=== PATIENT | male | born 1940 | race Caucasian/White ===

== ENCOUNTER 2020-07-23 08:37 | Inpatient (IN) | payer MEDICARE, OTHER ==
[~2020-07-23] VITALS: Ht 188 cm; Wt 90.2 kg
--- NOTE | 2020-07-23 08:56 | RAD ---
EXAM: CT Head without IV contrast INDICATION: Reason: speech changes / Spl. Instructions: / History: TECHNIQUE: Multi-detector row CT images were obtained of the head without the use of IV contrast. All CT scans performed at this facility utilize dose optimization techniques as appropriate to the exam, including the following: Automated exposure control and adjustment of the mA and/or KV according to patient size (this includes techniques or standardized protocols for targeted exams where dose is ind ication/reason for exam). COMPARISON: None FINDINGS: BRAIN PARENCHYMA: No evidence of acute intraparenchymal hemorrhage or infarct. No abnormal parenchyma l density or mass. VENTRICLES & EXTRA-AXIAL SPACES: Ventricles are within normal limits. Basilar cisterns are patent. N o pathologic extra-axial fluid collection or mass. ORBITS: Orbital contents are unremarkable. SINUSES: Visualized paranasal sinuses and mastoid air cells are clear. OSSEOUS & SOFT TISSUES: Calvarium and skull base are intact. IMPRESSION: No acute intracranial pathology. FOR INTERNAL CODING PURPOSES Critical result: Findings discussed with Dr. Rom Redd at 07/23/2020 8:52 AM. RESULT CODE: (C) Electronically signed by: Erma Song MD (07/23/2020 8:53 AM) [id number]
[2020-07-23] MEDS ORDERED: IOHEXOL 350 MG/ML 100 ML VIAL. IV ONE (09:00)
[2020-07-23] MEDS ORDERED: CONTRAST GIVEN. MC PRN (09:00)
--- NOTE | 2020-07-23 09:05 | PHYS DOC ---
Past Medical History Past Medical History MIGRAINES, CAD, CHF, ARTHRITIS Past Surgical History LEFT ENDARTECTOMY, CORONARY STENTS Smoking Status: Never Smoker Alcohol Use: None Drug Use: None General Adult EDM: Chief Complaint: NEURO SYMPTOMS/DEFICITS HPI: HPI: 80-year-old male presented emerge department today with slurred speech that started this morning at 745. Last known well 7:45 AM. 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 He had 1 of these migraines this morning. He does not have headache with these migraines, just visual loss. That happened around 6:00 this morning. His vision completely improved and he was going to work today with his niece who is here with him today. He then had slurred speech with aphasia that started at 7:45 AM. He was brought into the emergency department. He was activated as a code stroke. His symptoms completely resolved just after his CT scan. He denies a headache or any other symptoms at this time. He is feeling much better with clear speech and normal motor and sensory function of his arms and legs. Review of systems is negative for abdominal pain chest pain vomiting fevers chills. All other review of systems negative. ED course: 80-year-old male presenting with speech problems and aphasia this started at 7:[address] was finished at approximately 845 the patient's symptoms had completely resolved. I spoke with the patient's niece and discussed the risks and benefits of TPA and explained to her that since the patient's symptoms have completely resolved the TPA posed more harm than benefit to this patient at this time. I consulted Dr. Chen our neurologist by phone who recommends against administration of TPA given the patient's symptoms are completely resolved. EKG shows sinus rhythm with a regular rate. ST segments are congruent. Not suggestive of acute ischemia. Head CT unremarkable. CT angiogram shows narrowing of the right carotid artery without large vessel occlusion. I relayed this information to Dr. Chen. He recommends admitting the patient to the hospital for vascular surgery consultation and TIA work-up. We will admit the patient to the hospitalist team. We will admit the patient to Dr. Redmond. Basic bridge orders placed. Heart Score: Risk Factors: Risk Factors: DM, Current or recent (<one month) smoker, HTN, HLP, family history of CAD, obesity. Risk Scores: Score 0 - 3: 2.5% MACE over next 6 weeks - Discharge Home Score 4 - 6: 20.3% MACE over next 6 weeks - Admit for Clinical Observation Score 7 - 10: 72.7% MACE over next 6 weeks - Early Invasive Strategies Current Medications: Current Medications Medications (Trade) Dose Ordered Sig/Teo Start Time Stop Time Status Last Admin Dose Admin Iohexol (Omnipaque 350 Mg/ml) 75 ml 1X ONCE 07/23/20 09:00 07/23/20 09:01 UNV Allergies: Allergies: Allergies Coded Allergies Type Severity Reaction Last Updated Verified No Known Drug Allergies 07/23/20 No Physical Exam: PE: Constitutional: Well developed, well nourished, no acute distress, non-toxic appearance. [] HENT: Normocephalic, atraumatic, bilateral external ears normal, oropharynx moist, no oral exudates, nose normal. [] Eyes: PERRLA, EOMI, conjunctiva normal, no discharge. [] Neck: Normal range of motion, no tenderness, supple, no stridor. [] Cardiovascular:Heart rate regular rhythm, no murmur [] Lungs & Thorax: Bilateral breath sounds clear to auscultation [] Abdomen: Bowel sounds normal, soft, no tenderness, no masses, no pulsatile masses. [] Skin: Warm, dry, no erythema, no rash. [] Back: No tenderness, no CVA tenderness. [] Extremities: No tenderness, no cyanosis, no clubbing, ROM intact, no edema. [] Neurologic: Mental status: Awake oriented and alert x3 Cranial nerves: Extraocular movements intact, eyebrows dario bilaterally, smile symmetric, uvula elevation nl, shoulder shrug intact bilaterally, tongue protrusion normal Clear speech. Normal [id number]. No pronator drift. Sensation: equal and normal in all extremities Strength: 5/5 in upper and lower extremities bilaterally Psychologic: Affect normal, judgement normal, mood normal. [] Current Patient Data: Labs: Laboratory Tests Test 07/23/20 08:42 Glucose (Fingerstick) 103 mg/dL (70-99) H EKG: EKG: [] Radiology/Procedures: Radiology/Procedures: [] Course & Med Decision Making: Course & Med Decision Making Pertinent Labs and Imaging studies reviewed. (See chart for details) [] Dragon Disclaimer: Dragon Disclaimer: This electronic medical record was generated, in whole or in part, using a voice recognition dictation system. Departure Departure Impression: Primary Impression: TIA (transient ischemic attack) Additional Impressions: Carotid stenosis Carotid stenosis, right Disposition: 09 ADMITTED INPT THIS HOSP Admitting Physician: RUPERT Condition: STABLE Referrals: ZEB MCGOWAN MD (PCP) NIHSS Stroke Scale NIH Stroke Scale: NIH Stroke Scale Response (Comments) Value Level of Consciousness: 0 Alert/Responsive 0 LOC Questions: 0 Answers both correctly 0 LOC Commands: 0 Performs both tasks 0 Best Gaze: 0 Normal 0 Visual: 0 No visual loss 0 Facial Palsy: 0 Normal, symmetrical 0 Motor - Left Arm 0 No drift 0 Motor - Right Arm 0 No drift 0 Motor - Left Leg 0 No drift 0 Motor: Right Leg 0 No drift 0 Limb Ataxia: 0 Absent 0 Sensory: 0 No loss 0 Best Language: 0 Normal 0 Dysathria: 0 Normal 0 Extinction and Inattention: 0 Normal (AT 845 AM) 0 Total 0 MARCELO BECK MD Jul 23, 2020 09:05
--- NOTE | 2020-07-23 09:07 | RAD ---
XR CHEST 1V History: Reason: speech changes, CODE STROKE / Spl. Instructions: / History: Comparison: None. Findings: No consolidation or pleural effusion. Normal heart size. No pneumothorax. Hyperinflation. Patchy biba silar opacities, likely atelectasis. Impression: 1. Patchy bibasilar opacities, likely atelectasis. Electronically signed by: Truman Foster DO (07/23/2020 9:05 AM) [id number]
[2020-07-23 09:21] LABS: BASO % 1 % (0-3); EOS # 0.4 x10^3/uL (0.0-0.7); EOS % 7 % (0-3); HEMOGLOBIN 15.4 g/dL (13.0-17.5); LYMPH # 1.5 x10^3/uL (1.0-4.8); LYMPH % 27 % (24-48); MEAN CORPUSCULAR HEMOGLOBIN 34 pg (25-35); MEAN CORPUSCULAR HGB CONC 34 g/dL (31-37); MEAN CORPUSCULAR VOLUME 102 fL (79-100); MONO # 0.6 x10^3/uL (0.0-1.1); MONO % 11 % (0-9); NEUT % 55 % (31-73); PLATELET COUNT 182 x10^3/uL (140-400); RED BLOOD COUNT 4.53 x10^6/uL (4.30-5.70); RED CELL DISTRIBUTION WIDTH 14.9 % (11.5-14.5); WHITE BLOOD COUNT 5.5 x10^3/uL (4.0-11.0)
--- NOTE | 2020-07-23 09:25 | RAD ---
CTA STROKE HEAD/NECK w/o History:Reason: speech changes omni 350 75ml / Spl. Instructions: / History: Technique: After bolus of intravenous contrast, volumetric CT data acquisition was acquired of the he ad and neck. Multiplanar reconstruction images to include MIP and 3-D reconstruction images are submi tted. Exposure: One or more of the following individualized dose reduction techniques were utilized for thi s examination: 1. Automated exposure control 2. Adjustment of the mA and/or kV according to patient size 3. Use of iterative reconstruction technique. Comparison: None Any determination of stenosis is based on NASCET criteria. Head CTA: ICA: Bilateral carotid siphon atheromatous plaque with mild narrowings. MCA: No stenosis, occlusion or aneurysm. JACOB: No stenosis, occlusion or aneurysm. ATOMIC WELDER: No stenosis, occlusion or aneurysm. Basilar artery: No stenosis, occlusion or aneurysm. Distal vertebral arteries: Moderate focal narrowing of the left distal intracranial vertebral artery. Patent superior sagittal, straight, transverse and sigmoid venous sinuses. CT angiogram neck: Aortic arch: Mild atheromatous plaque within the aortic arch and branch vessels. Subclavian arteries: Mild multifocal narrowing of the bilateral subclavian arteries due to atheromato us plaque. Common carotid arteries: No stenosis, occlusion or dissection. Mild atheromatous plaque. Internal carotid arteries: Postoperative changes right carotid endarterectomy. Severe calcified plaqu e within the left carotid bifurcation. 72 percent narrowing of the left proximal internal carotid art anuja. Additional 60 percent narrowing of the left internal carotid artery origin. External carotid arteries: Moderate narrowing of the left external carotid artery origin. Vertebral arteries: Mild narrowing of the left vertebral artery origin. Moderate narrowing of the rig ht vertebral artery origin. No occlusion. Right apical parenchymal scarring. Bilateral thyroid nodules largest on the right measures 9 mm. Bones: Multilevel cervical spondylosis. Multilevel neuroforaminal narrowing. No high-grade canal sten osis. Impression: 1. Severe left proximal internal carotid artery narrowings. 2. Moderate focal narrowing of the left distal intracranial vertebral artery and right proximal vert ebral artery origin. 3. Additional atheromatous plaque within the head and neck with mild narrowings, as described. FOR INTERNAL CODING PURPOSES Critical result: Findings discussed with Rom Redd at 07/23/2020 9:18 AM. RESULT CODE: (C) Electronically signed by: Truman Foster DO (07/23/2020 9:22 AM) [id number]
[2020-07-23 09:26] LABS: CALCIUM 8.2 mg/dL (8.5-10.1); CREATININE 0.9 mg/dL (0.7-1.3); GFR 80.8; POTASSIUM 4.2 mmol/L (3.5-5.1)
[2020-07-23 09:30] LABS: PROTHROMBIN TIME PATIENT 15.8 SEC (11.7-14.0)
[2020-07-23] MEDS ORDERED: ASPIRIN RECTAL 300 MG SUPP. PR PRN (10:00)
[2020-07-23] MEDS ORDERED: ACETAMINOPHEN 325 MG TABLET. PO PRN (10:00)
[2020-07-23 10:37] VITALS: BP 204/94
[2020-07-23] MEDS ORDERED: cloNIDine HCL 0.3 MG TABLET PO PRN (12:00)
[2020-07-23] MEDS ORDERED: LABETALOL 20 MG/4 ML DISP.SYRIN. IVP PRN (12:00)
--- NOTE | 2020-07-23 12:12 | PDOC2 ---
NEUROLOGY CONSULT Date of Service DOS: DATE: 07/23/20 TIME: 12:06 Reason for Consult Reason for Consult: Stroke symptoms Referring Physician Referring Physician: Dr. Ramos Source Source: Chart review, Patient History of Present Illness History of Present Illness The patient is an 80-year-old right-handed male last known normal at 7:45 AM. He had trouble thinking of words he wanted to say. He could not get his words out. In his youth he had migraines associated with scotomata, blindness, and may have had an episode of scotoma early this morning about 6 AM. He felt weak all over. In the CT scanner here in the emergency department his symptoms completely resolved. I discussed the case with Dr. Redd and we agreed that the patient was not a candidate for alteplase. On the medical floor he has been noted to have hypertension. There is no prior history of stroke, seizure, or head injury. Past Medical History Cardiovascular: HTN, Hyperlipidemia, Other (Peripheral vascular disease) CENTRAL NERVOUS SYSTEM: Migraine Psych: Anxiety Musculoskeletal: Osteoarthritis Rheumatologic: Gout Past Surgical History Past Surgical History: Other (IVC filter, left carotid endarterectomy, coronary stent, left leg artery surgery?) Family History Family History: No pertinent hx Social History Social History Retired, lives alone, no alcohol or tobacco Current Medications Current Medications Current Medications Iohexol (Omnipaque 350 Mg/ml) 75 ml 1X ONCE IV Last administered on 07/23/20at 08:57; Start 07/23/20 at 09:00; Stop 07/23/20 at 09:01; Status DC Info (CONTRAST GIVEN -- Rx MONITORING) 1 each PRN DAILY PRN MC SEE COMMENTS; Start 07/23/20 at 09:00; Stop 07/25/20 at 08:59 Acetaminophen (Tylenol) 650 mg PRN Q6HRS PRN PO TEMP > 100.3'F; Start 07/23/20 at 10:00 Aspirin (Ecotrin) 325 mg DAILYWBKFT PO ; Start 07/24/20 at 08:00 Aspirin (Aspirin Rectal Supp) 300 mg PRN DAILY PRN MS IF UNABLE TO TAKE PO; Start 07/23/20 at 10:00 Clonidine HCl (Catapres) 0.3 mg Q8HRS PO ; Start 07/23/20 at 14:00; Stop 07/23/20 at 12:00; Status DC Labetalol HCl (Normodyne Iv Push) 10 mg PRN Q10MIN PRN IVP ELEVATED BP, SEE COMMENTS; Start 07/23/20 at 12:00 Clonidine HCl (Catapres) 0.3 mg PRN Q8HRS PO ; Start 07/23/20 at 12:00; Status UNV Allergies Allergies: Coded Allergies: No Known Drug Allergies (Unverified , 07/23/20) ROS Review of System Negative for fever, chills, weight loss, shortness of breath, chest pain, indigestion, hematochezia, melena, and dysuria. Full 14-point review of systems is negative. Physical Exam Physical Examination General: Well-developed, well-nourished white male in no acute distress HEENT: Normocephalic andatraumatic. Temporal arteriespulsatile and nontender. Neck: Supple without bruit, no meningismus Musculoskeletal: Stability:see neurologic. Gait exam:see neurologic. Tone:see neurologic.Strength:see neurologic. Neurological: Mental Status:intact, orientation, memory, attention span/concentration, language, fund of knowledge normal. Cranial Nerves:Pupils equal and reactive to light, extraocular movements areintact, visual freed are full to confrontation. Facial sensation is normal. There is no facial asymmetry. Vestibulo-ocular reflex is intact. Palate elevates and tongue protrudes in midline. All other cranial related problems are negative except as mentioned before.Reflexes:2+ and symmetric with flexor plantar responses. Motor:5/5 strength with normal tone and bulk. Coordination:Finger-nose finger and actg-zo-hzdw testing are normal. Rapid alternating movements and fine finger movements are intact. Gait:Normal, including tandem. Sensory:Normal pinprick, vibration, light touch, proprioception. Vitals VITALS Vital Signs Date Time Temp Pulse Resp B/P (MAP) Pulse Ox O2 Delivery O2 Flow Rate FiO2 07/23/20 11:23 Room Air 07/23/20 10:37 97.8 70 18 204/94 (130) 93 97.8 Labs Labs Laboratory Tests Test 07/23/20 08:42 07/23/20 09:02 Glucose (Fingerstick) 103 mg/dL (70-99) White Blood Count 5.5 x10^3/uL (4.0-11.0) Red Blood Count 4.53 x10^6/uL (4.30-5.70) Hemoglobin 15.4 g/dL (13.0-17.5) Hematocrit 46.0 % (39.0-53.0) Mean Corpuscular Volume 102 fL (79-100) Mean Corpuscular Hemoglobin 34 pg (25-35) Mean Corpuscular Hemoglobin Concent 34 g/dL (31-37) Red Cell Distribution Width 14.9 % (11.5-14.5) Platelet Count 182 x10^3/uL (140-400) Neutrophils (%) (Auto) 55 % (31-73) Lymphocytes (%) (Auto) 27 % (24-48) Monocytes (%) (Auto) 11 % (0-9) Eosinophils (%) (Auto) 7 % (0-3) Basophils (%) (Auto) 1 % (0-3) Neutrophils # (Auto) 3.0 x10^3/uL (1.8-7.7) Lymphocytes # (Auto) 1.5 x10^3/uL (1.0-4.8) Monocytes # (Auto) 0.6 x10^3/uL (0.0-1.1) Eosinophils # (Auto) 0.4 x10^3/uL (0.0-0.7) Basophils # (Auto) 0.0 x10^3/uL (0.0-0.2) Prothrombin Time 15.8 SEC (11.7-14.0) Prothromb Time International Ratio 1.3 (0.8-1.1) Activated Partial Thromboplast Time 31 SEC (24-38) Sodium Level 139 mmol/L (136-145) Potassium Level 4.2 mmol/L (3.5-5.1) Chloride Level 106 mmol/L (98-107) Carbon Dioxide Level 26 mmol/L (21-32) Anion Gap 7 (6-14) Blood Urea Nitrogen 15 mg/dL (8-26) Creatinine 0.9 mg/dL (0.7-1.3) Estimated GFR (Cockcroft-Gault) 80.8 Glucose Level 93 mg/dL (70-99) Calcium Level 8.2 mg/dL (8.5-10.1) Troponin I Quantitative < 0.017 ng/mL (0.000-0.055) Laboratory Tests Test 2/24/21 08:42 07/23/20 09:02 Glucose (Fingerstick) 103 mg/dL (70-99) White Blood Count 5.5 x10^3/uL (4.0-11.0) Red Blood Count 4.53 x10^6/uL (4.30-5.70) Hemoglobin 15.4 g/dL (13.0-17.5) Hematocrit 46.0 % (39.0-53.0) Mean Corpuscular Volume 102 fL (79-100) Mean Corpuscular Hemoglobin 34 pg (25-35) Mean Corpuscular Hemoglobin Concent 34 g/dL (31-37) Red Cell Distribution Width 14.9 % (11.5-14.5) Platelet Count 182 x10^3/uL (140-400) Neutrophils (%) (Auto) 55 % (31-73) Lymphocytes (%) (Auto) 27 % (24-48) Monocytes (%) (Auto) 11 % (0-9) Eosinophils (%) (Auto) 7 % (0-3) Basophils (%) (Auto) 1 % (0-3) Neutrophils # (Auto) 3.0 x10^3/uL (1.8-7.7) Lymphocytes # (Auto) 1.5 x10^3/uL (1.0-4.8) Monocytes # (Auto) 0.6 x10^3/uL (0.0-1.1) Eosinophils # (Auto) 0.4 x10^3/uL (0.0-0.7) Basophils # (Auto) 0.0 x10^3/uL (0.0-0.2) Prothrombin Time 15.8 SEC (11.7-14.0) Prothromb Time International Ratio 1.3 (0.8-1.1) Activated Partial Thromboplast Time 31 SEC (24-38) Sodium Level 139 mmol/L (136-145) Potassium Level 4.2 mmol/L (3.5-5.1) Chloride Level 106 mmol/L (98-107) Carbon Dioxide Level 26 mmol/L (21-32) Anion Gap 7 (6-14) Blood Urea Nitrogen 15 mg/dL (8-26) Creatinine 0.9 mg/dL (0.7-1.3) Estimated GFR (Cockcroft-Gault) 80.8 Glucose Level 93 mg/dL (70-99) Calcium Level 8.2 mg/dL (8.5-10.1) Troponin I Quantitative < 0.017 ng/mL (0.000-0.055) Images Images CT Head without IV contrast INDICATION: Reason: speech changes / Spl. Instructions: / History: TECHNIQUE: Multi-detector row CT images were obtained of the head without the use of IV contrast. All CT scans performed at this facility utilize dose optimization techniques as appropriate to the exam, including the following: Automated exposure control and adjustment of the mA and/or KV according to patient size (this includes techniques or standardized protocols for targeted exams where dose is indication/reason for exam). COMPARISON: None FINDINGS: BRAIN PARENCHYMA: No evidence of acute intraparenchymal hemorrhage or infarct. No abnormal parenchymal density or mass. VENTRICLES & EXTRA-AXIAL SPACES: Ventricles are within normal limits. Basilar cisterns are patent. No pathologic extra-axial fluid collection or mass. ORBITS: Orbital contents are unremarkable. SINUSES: Visualized paranasal sinuses and mastoid air cells are clear. OSSEOUS & SOFT TISSUES: Calvarium and skull base are intact. IMPRESSION: No acute intracranial pathology. CTA STROKE HEAD/NECK w/o History:Reason: speech changes omni 350 75ml / Spl. Instructions: / History: Technique: After bolus of intravenous contrast, volumetric CT data acquisition was acquired of the head and neck. Multiplanar reconstruction images to include MIP and 3-D reconstruction images are submitted. Exposure: One or more of the following individualized dose reduction techniques were utilized for this examination: 1. Automated exposure control 2. Adjustment of the mA and/or kV according to patient size 3. Use of iterative reconstruction technique. Comparison: None Any determination of stenosis is based on NASCET criteria. Head CTA: ICA: Bilateral carotid siphon atheromatous plaque with mild narrowings. MCA: No stenosis, occlusion or aneurysm. JACOB: No stenosis, occlusion or aneurysm. IMMERSION METALCLEANER: No stenosis, occlusion or aneurysm. Basilar artery: No stenosis, occlusion or aneurysm. Distal vertebral arteries: Moderate focal narrowing of the left distal intracranial vertebral artery. Patent superior sagittal, straight, transverse and sigmoid venous sinuses. CT angiogram neck: Aortic arch: Mild atheromatous plaque within the aortic arch and branch vessels. Subclavian arteries: Mild multifocal narrowing of the bilateral subclavian arteries due to atheromatous plaque. Common carotid arteries: No stenosis, occlusion or dissection. Mild atheromatous plaque. Internal carotid arteries: Postoperative changes right carotid endarterectomy. Severe calcified plaque within the left carotid bifurcation. 72 percent narrowing of the left proximal internal carotid artery. Additional 60 percent narrowing of the left internal carotid artery origin. External carotid arteries: Moderate narrowing of the left external carotid artery origin. Vertebral arteries: Mild narrowing of the left vertebral artery origin. Moderate narrowing of the right vertebral artery origin. No occlusion. Right apical parenchymal scarring. Bilateral thyroid nodules largest on the right measures 9 mm. Bones: Multilevel cervical spondylosis. Multilevel neuroforaminal narrowing. No high-grade canal stenosis. Impression: 1. Severe left proximal internal carotid artery narrowings. 2. Moderate focal narrowing of the left distal intracranial vertebral artery and right proximal vertebral artery origin. 3. Additional atheromatous plaque within the head and neck with mild narrowings, as described. Assessment/Plan Assessment/Plan Impression: Transient ischemic attack referable to the left hemisphere, does have left carotid stenosis History of right carotid endarterectomy History of complicated migraines Hypertension, keep in mind the possibility of hypertensive encephalopathy Recommendations: Failure on 81 mg aspirin daily, switch to 325 mg daily, will consider adding clopidogrel Vascular surgery consult MRI brain Echocardiogram Rehabilitation modalities Statin depending on lipid levels levels Telemetry monitoring Thank you for letting me help with the patient's care. MUNIR CHAN MD Jul 23, 2020 12:12
--- NOTE | 2020-07-23 12:38 | HP ---
ADMIT DATE: 07/23/2020 CHIEF COMPLAINT: Neuro symptoms. HISTORY OF PRESENT ILLNESS: The patient is a pleasant 80-year-old male who has not taken his meds for a couple of months. He states he has not been able to follow up with his doctor. Today, when he presented with slurred speech and some mental status change, we noticed that his pressure is 217 systolically. He also had stroke symptoms, were concerned he could be having a stroke. I discussed the case with ER physician. We have admitted the patient. We consulted Neurology. I just spoke with Dr. Emanuel. He feels like this might be hypertensive encephalopathy. We are going to get his pressures down and see if he does better. PAST MEDICAL HISTORY: CHF, CAD, arthritis, left carotid endarterectomy, coronary stents. ALLERGIES: None. FAMILY HISTORY: Diabetes. SOCIAL HISTORY: He does not drink, smoke or take drugs. 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 MEDICATIONS: Reviewed, please refer to the MRAD. REVIEW OF SYSTEMS: GENERAL: No history of weight change, weakness or fevers. SKIN: No bruising, hair changes or rashes. EYES: No blurred, double or loss of vision. NOSE AND THROAT: No history of nosebleeds, hoarseness or sore throat. HEART: No history of palpitations, chest pain or shortness of breath on exertion. LUNGS: Denies cough, hemoptysis, wheezing or shortness of breath. GASTROINTESTINAL: Denies changes in appetite, nausea, vomiting, diarrhea or constipation. GENITOURINARY: No history of frequency, urgency, hesitancy or nocturia. NEUROLOGIC: Denies history of numbness, tingling, tremor or weakness. PSYCHIATRIC: No history of panic, anxiety or depression. ENDOCRINE: No history of heat or cold intolerance, polyuria or polydipsia. EXTREMITIES: Denies muscle weakness, joint pain, pain on walking or stiffness. PHYSICAL EXAMINATION: VITALS: Within normal limits and are stable. GENERAL: No apparent distress. Alert and oriented. HEENT: Normal cephalic atraumatic, external auditory canals are patent EYES: Extraocular muscles are intact, pupils are equally round and reactive to light and accommodation MUSCULOSKELETAL: Well developed, well nourished, good range of motion ENDOCRINE: No thyromegaly was palpated LYMPHATICS: No cervical chain or axillary nodes were noted HEMATOPOIETIC: No bruising NECK: Supple, no JVD, no thyromegaly was noted. LUNGS: Clear to auscultation in all lung freed without rhonchi or wheezing. HEART: RRR, S1, S2 present. Peripheral pulses intact, no obvious murmurs were noted. ABDOMEN: Soft, nontender. Positive bowel sounds no organomegaly, normal bowel sounds. EXTREMITIES: Without any cyanosis, clubbing, or edema. Pedal pulses intact, Homans sign is negative. NEUROLOGIC: Normal speech, normal tone. A & O x3, moves all extremities, no obvious focal deficits. PSYCHIATRIC: Normal affect, normal mood. Stable. SKIN: No ulcerations or rashes, good skin turgor, no jaundice. VASCULAR: Good capillary refill, neurovascular bundle appears to be intact. LABORATORY DATA: White count is 5. Electrolytes are normal. ASSESSMENT AND PLAN: Resolving transient ischemic attack, suspect hypertensive encephalopathy. The patient has been admitted. We are giving him IV labetalol, p.r.n. clonidine. We are going to try to get his home meds going once he gets his doses and names of his meds to us. DVT prophylaxis. Full code. Appreciate Dr. Emanuel's input. RUTH HAILE DO DR: KEITH/robel JOB#: [id number] / [id number]
--- NOTE | 2020-07-23 12:59 | EKG ---
[facility] [address] [place] [address] Test Date: 2020-07-23 Test Time: 09:02:32 Pat Name: BLUE HODGES Department: Room: Gender: M Helminthologist: : 1940 Requested By: MARCELO BECK Order Number: [id number] Reading MD: Measurements Intervals [place] Rate: 76 P: 26 NH: 174 QRS: 56 QRSD: 98 T: 51 QT: 378 QTc: 425 Interpretive Statements SINUS RHYTHM QRS(T) CONTOUR ABNORMALITY CONSIDER ANTEROLATERAL MYOCARDIAL DAMAGE POSSIBLY ABNORMAL ECG RI6.01 No previous ECG available for comparison
[2020-07-23] MEDS ORDERED: POTA20TA4 PO (13:30)
[2020-07-23] MEDS ORDERED: LOSA50TA15 PO (13:30)
[2020-07-23] MEDS ORDERED: ALLO300T PO (13:30)
[2020-07-23] MEDS ORDERED: PROP10TA PO (13:30)
[2020-07-23] MEDS ORDERED: SIMV40TA18 PO (13:30)
[2020-07-23] MEDS ORDERED: FURO40TA4 PO (13:30)
[2020-07-23] MEDS ORDERED: ASPI-886 PO (13:54)
[2020-07-23] MEDS ORDERED: CALC-31 PO (13:54)
[2020-07-23] MEDS ORDERED: cloNIDine HCL 0.3 MG TABLET PO SCH (14:00)
--- NOTE | 2020-07-23 14:01 | PDOC ---
Provider Note Date of Service: DATE: 07/23/20 TIME: 13:55 Provider Note Provider Note Vascular consult dictated by Dr. Donaldson. 80 year old male who presented with slurred speech and word finding difficulty. Noted to have critical left internal carotid artery stenosis. His symptoms have resolved and he feels he is back to baseline neurologically. He is s/p right carotid endarterectomy. Recommend left carotid endarterectomy, will plan for tomorrow afternoon. Resume daily aspirin, start daily Plavix. Hypertensive management. Statin therapy. Justicifation of Admission Dx: Justifications for Admission: Justification of Admission Dx: Yes ADA CARR APRN Jul 23, 2020 14:00
--- NOTE | 2020-07-23 14:01 | NUR ---
RN NOTE this RN took over care for this patient and agrees with previous RN's assessments and notes. home medications entered and verified with patient by this RN. will continue to monitor.
[2020-07-23] MEDS: CLOPIDOGREL BISULFATE 75 MG TABLET PO SCH (14:24)
[2020-07-23 15:00] VITALS: BP 169/70
--- NOTE | 2020-07-23 16:43 | RAD ---
EXAM: MRI BRAIN WO 07/23/2020 3:29 PM CLINICAL INDICATION: TIA COMPARISON: CT head same day TECHNIQUE: Multiplanar multisequence MR images of the brain without contrast FINDINGS: There is no restricted diffusion to suggest acute or recent infarct. Ventricles and sulci are mildly enlarged reflecting age-related atrophy. There is mild periventricular white matter hypoat tenuation and a few small scattered T2 hyperintense white matter lesions. No intracranial hemorrhage or extra-axial fluid collection. No abnormal susceptibility or evidence of intracranial mass. Globes and orbits are intact. Paranasal sinuses and mastoid air cells are clear. Calvarium is intact. IMPRESSION: 1. No acute intracranial abnormality. 2. Mild age-related volume loss. Electronically signed by: Shiela Perry MD (07/23/2020 4:41 PM) [id number]
--- NOTE | 2020-07-23 16:59 | CONS ---
DATE OF CONSULTATION: 07/23/2020 CHIEF COMPLAINT: Episode of difficulty speaking and being confused. HISTORY OF PRESENT ILLNESS: The patient is an 80-year-old male with a history of carotid arterial disease, who has previously undergone a right carotid endarterectomy in the remote past, presents to the hospital after an episode of slurred speech and change in his mental status. He states that this came on suddenly this morning. The symptoms have resolved. He reports prior to this morning, he was having no difficulties including no neurologic symptoms. He does state that he has run out of his blood pressure medication and he was having a difficult time getting it refilled; therefore, his blood pressure has been higher than normal. He currently feels fine, feels his speech is back to baseline. He never noticed any weakness in his arms or legs. He has been taking daily aspirin at home. REVIEW OF SYSTEMS: A 10-point review of systems was performed, which is otherwise negative besides what is mentioned in the history of present illness. PAST MEDICAL HISTORY: Includes: 1. Coronary artery disease. 2. Congestive heart failure. 3. Arthritis. 4. Carotid arterial disease. 5. Left leg deep venous thrombosis. PAST SURGICAL HISTORY: Includes: 1. Coronary artery stenting. 2. Right carotid endarterectomy. ALLERGIES: No known drug allergies. MEDICATIONS: Please see his full MAR. SOCIAL HISTORY: The patient does not smoke or drink alcohol. PHYSICAL EXAMINATION: GENERAL: The patient is awake and alert, currently in no apparent distress. He is afebrile. VITAL SIGNS: His blood pressure has been elevated anywhere from 179-204 systolic. His pulse is 70. He is 93% on room air. GENERAL: He is awake and alert and oriented x 3. NECK: His neck is supple. He does have a right neck scar from his previous endarterectomy. The left neck is clear with no scar. ABDOMEN: Soft, nondistended, and nontender. EXTREMITIES: His bilateral upper extremities are warm with palpable radial pulses. His bilateral lower extremities are warm. He does have chronic swelling and chronic stasis dermatitis skin changes in his calf and ankle and the left foot. Mild swelling in the right leg. Palpable pedal pulses. NEUROLOGIC: He is awake and alert, oriented x 3, moving all 4 extremities with normal strength, cranial nerves are grossly intact. ASSESSMENT AND PLAN: The patient is an 80-year-old male who had an episode, likely consistent with transient ischemic attack this morning with slurred speech and mental status confusion. This episode has resolved and he is back to his baseline neurologically. CT scan of the head was negative for stroke. CT angiogram of the neck showed severe stenosis of the proximal left internal carotid artery. The right carotid artery is patent with no severe stenosis. I recommend a left carotid endarterectomy to prevent future strokes. Recommend continuing daily aspirin and starting daily Plavix for his TIA type symptoms. His blood pressure is elevated and this is being treated by the medical physicians. We will schedule a left carotid endarterectomy here in the hospital. JANA MEEKS MD DR: AJIT/robel JOB#: [id number] / [id number]
[2020-07-23] MEDS: LOSARTAN POTASSIUM 50 MG TABLET. PO SCH (17:17)
[2020-07-23] MEDS: PROPRANOLOL 10 MG TABLET. PO SCH (17:17)
[2020-07-23 19:49] VITALS: BP 173/78
[2020-07-23] MEDS: SIMVASTATIN 40 MG TABLET. PO SCH (20:59)
[2020-07-23 23:04] VITALS: BP 123/59
[2020-07-24] VITALS (14 sets, daily range): BP systolic 114–194; BP diastolic 36–99
[2020-07-24 05:13] LABS: BASO % 1 % (0-3); EOS # 0.4 x10^3/uL (0.0-0.7); EOS % 9 % (0-3); HEMATOCRIT 41.3 % (39.0-53.0); HEMOGLOBIN 13.9 g/dL (13.0-17.5); LYMPH # 1.4 x10^3/uL (1.0-4.8); LYMPH % 30 % (24-48); MEAN CORPUSCULAR HEMOGLOBIN 34 pg (25-35); MEAN CORPUSCULAR HGB CONC 34 g/dL (31-37); MEAN CORPUSCULAR VOLUME 102 fL (79-100); MONO # 0.5 x10^3/uL (0.0-1.1); MONO % 11 % (0-9); NEUT # 2.3 x10^3/uL (1.8-7.7); NEUT % 50 % (31-73); PLATELET COUNT 154 x10^3/uL (140-400); RED BLOOD COUNT 4.05 x10^6/uL (4.30-5.70); WHITE BLOOD COUNT 4.6 x10^3/uL (4.0-11.0)
[2020-07-24 05:44] LABS: CALCIUM 8.2 mg/dL (8.5-10.1); GFR 71.5; POTASSIUM 3.8 mmol/L (3.5-5.1)
[2020-07-24 05:54] LABS: CHOLESTEROL/HDL RATIO 2.8
[2020-07-24] MEDS ORDERED: HYDROmorphone 2 MG/ML VIAL IVP PRN (06:00)
[2020-07-24] MEDS ORDERED: IV RINGERS,LACTATED 1000ML 1,000 ML IV SCH (06:00)
[2020-07-24] MEDS ORDERED: HEPARIN SODIUM 5,000 UNIT in IV RINGERS,LACTATED 500ML 500 ML IRR ONE (06:00)
[2020-07-24] MEDS ORDERED: MORPHINE SULFATE 2 MG/ML VIAL. IVP PRN (06:00)
[2020-07-24] MEDS ORDERED: PROCHLORPERAZINE 10 MG/2 ML VIAL. IVP PRN (06:00)
[2020-07-24] MEDS ORDERED: fentaNYL PF VIAL 100 MCG/2 ML VIAL IVP PRN ×2 (06:00)
[2020-07-24] MEDS: ASPIRIN ENTERIC COATED 325 MG TABLET.DR. PO SCH (08:00)
[2020-07-24] MEDS: CLOPIDOGREL BISULFATE 75 MG TABLET PO SCH (08:00)
[2020-07-24] MEDS ORDERED: LOSARTAN POTASSIUM 50 MG TABLET. PO SCH (09:00)
[2020-07-24] MEDS ORDERED: PROPRANOLOL 10 MG TABLET. PO SCH (09:00)
--- NOTE | 2020-07-24 09:19 | PDOC ---
PROGRESS NOTES Date of Service DATE: 07/24/20 TIME: 09:15 Assessment Problems Medical Problems: (1) Carotid stenosis Status: Acute (2) Carotid stenosis, right Status: Acute (3) TIA (transient ischemic attack) Status: Acute Transient ischemic attack referable to the left hemisphere, does have left carotid stenosis, keep in mind history of complicated migraines, hypertensive encephalopathy, stress reaction. MRI is negative for stroke Sister says that he has been having episodes of trouble speaking for at least a month, also under a large amount of stress History of right carotid endarterectomy Very favorable lipid profile Plan Aspirin increased to 325 mg daily, vascular surgery added clopidogrel Statin, does not need high-dose Agree with vascular surgery plans for endarterectomy Await echocardiogram Rehabilitation modalities Subjective No complaints Objective Vital Signs Date Time Temp Pulse Resp B/P (MAP) Pulse Ox O2 Delivery O2 Flow Rate FiO2 07/24/20 07:00 97.5 62 18 148/75 (99) 94 Room Air 97.5 Intake and Output 07/24/20 07:00 Intake Total 420 ml Balance 420 ml Intake Oral 420 ml # Voids 6 PHYSICAL EXAM Alert. Oriented to time, place and person. PERRL. EOMI. CN: no focal findings. Muscle tone: normal. Muscle strength: 5/5 DTR: 2+ Plantar reflex: Flexor Gait: not examined in bed. Sensory exam: no abnormal findings. No cerebellar signs elicited. Review of Relevant I have reviewed the following items radha (where applicable) has been applied. Labs Laboratory Tests Test 07/23/20 08:42 07/23/20 09:02 07/23/20 14:50 07/24/20 04:40 Glucose (Fingerstick) 103 mg/dL (70-99) White Blood Count 5.5 x10^3/uL (4.0-11.0) 4.6 x10^3/uL (4.0-11.0) Red Blood Count 4.53 x10^6/uL (4.30-5.70) 4.05 x10^6/uL (4.30-5.70) Hemoglobin 15.4 g/dL (13.0-17.5) 13.9 g/dL (13.0-17.5) Hematocrit 46.0 % (39.0-53.0) 41.3 % (39.0-53.0) Mean Corpuscular Volume 102 fL (79-100) 102 fL (79-100) Mean Corpuscular Hemoglobin 34 pg (25-35) 34 pg (25-35) Mean Corpuscular Hemoglobin Concent 34 g/dL (31-37) 34 g/dL (31-37) Red Cell Distribution Width 14.9 % (11.5-14.5) 15.0 % (11.5-14.5) Platelet Count 182 x10^3/uL (140-400) 154 x10^3/uL (140-400) Neutrophils (%) (Auto) 55 % (31-73) 50 % (31-73) Lymphocytes (%) (Auto) 27 % (24-48) 30 % (24-48) Monocytes (%) (Auto) 11 % (0-9) 11 % (0-9) Eosinophils (%) (Auto) 7 % (0-3) 9 % (0-3) Basophils (%) (Auto) 1 % (0-3) 1 % (0-3) Neutrophils # (Auto) 3.0 x10^3/uL (1.8-7.7) 2.3 x10^3/uL (1.8-7.7) Lymphocytes # (Auto) 1.5 x10^3/uL (1.0-4.8) 1.4 x10^3/uL (1.0-4.8) Monocytes # (Auto) 0.6 x10^3/uL (0.0-1.1) 0.5 x10^3/uL (0.0-1.1) Eosinophils # (Auto) 0.4 x10^3/uL (0.0-0.7) 0.4 x10^3/uL (0.0-0.7) Basophils # (Auto) 0.0 x10^3/uL (0.0-0.2) 0.0 x10^3/uL (0.0-0.2) Prothrombin Time 15.8 SEC (11.7-14.0) Prothromb Time International Ratio 1.3 (0.8-1.1) Activated Partial Thromboplast Time 31 SEC (24-38) Sodium Level 139 mmol/L (136-145) 139 mmol/L (136-145) Potassium Level 4.2 mmol/L (3.5-5.1) 3.8 mmol/L (3.5-5.1) Chloride Level 106 mmol/L (98-107) 106 mmol/L (98-107) Carbon Dioxide Level 26 mmol/L (21-32) 28 mmol/L (21-32) Anion Gap 7 (6-14) 5 (6-14) Blood Urea Nitrogen 15 mg/dL (8-26) 15 mg/dL (8-26) Creatinine 0.9 mg/dL (0.7-1.3) 1.0 mg/dL (0.7-1.3) Estimated GFR (Cockcroft-Gault) 80.8 71.5 Glucose Level 93 mg/dL (70-99) 95 mg/dL (70-99) Calcium Level 8.2 mg/dL (8.5-10.1) 8.2 mg/dL (8.5-10.1) Troponin I Quantitative < 0.017 ng/mL (0.000-0.055) SARS-CoV-2 Antigen (Rapid) Negative (NEGATIVE) Triglycerides Level 41 mg/dL (0-150) Cholesterol Level 94 mg/dL (0-200) LDL Cholesterol, Calculated 53 mg/dL (0-100) VLDL Cholesterol, Calculated 8 mg/dL (0-40) Non-HDL Cholesterol Calculated 61 mg/dL (0-129) HDL Cholesterol 33 mg/dL (40-60) Cholesterol/HDL Ratio 2.8 Laboratory Tests Test 07/23/20 14:50 07/24/20 04:40 SARS-CoV-2 Antigen (Rapid) Negative (NEGATIVE) White Blood Count 4.6 x10^3/uL (4.0-11.0) Red Blood Count 4.05 x10^6/uL (4.30-5.70) Hemoglobin 13.9 g/dL (13.0-17.5) Hematocrit 41.3 % (39.0-53.0) Mean Corpuscular Volume 102 fL (79-100) Mean Corpuscular Hemoglobin 34 pg (25-35) Mean Corpuscular Hemoglobin Concent 34 g/dL (31-37) Red Cell Distribution Width 15.0 % (11.5-14.5) Platelet Count 154 x10^3/uL (140-400) Neutrophils (%) (Auto) 50 % (31-73) Lymphocytes (%) (Auto) 30 % (24-48) Monocytes (%) (Auto) 11 % (0-9) Eosinophils (%) (Auto) 9 % (0-3) Basophils (%) (Auto) 1 % (0-3) Neutrophils # (Auto) 2.3 x10^3/uL (1.8-7.7) Lymphocytes # (Auto) 1.4 x10^3/uL (1.0-4.8) Monocytes # (Auto) 0.5 x10^3/uL (0.0-1.1) Eosinophils # (Auto) 0.4 x10^3/uL (0.0-0.7) Basophils # (Auto) 0.0 x10^3/uL (0.0-0.2) Sodium Level 139 mmol/L (136-145) Potassium Level 3.8 mmol/L (3.5-5.1) Chloride Level 106 mmol/L (98-107) Carbon Dioxide Level 28 mmol/L (21-32) Anion Gap 5 (6-14) Blood Urea Nitrogen 15 mg/dL (8-26) Creatinine 1.0 mg/dL (0.7-1.3) Estimated GFR (Cockcroft-Gault) 71.5 Glucose Level 95 mg/dL (70-99) Calcium Level 8.2 mg/dL (8.5-10.1) Triglycerides Level 41 mg/dL (0-150) Cholesterol Level 94 mg/dL (0-200) LDL Cholesterol, Calculated 53 mg/dL (0-100) VLDL Cholesterol, Calculated 8 mg/dL (0-40) Non-HDL Cholesterol Calculated 61 mg/dL (0-129) HDL Cholesterol 33 mg/dL (40-60) Cholesterol/HDL Ratio 2.8 Medications Current Medications Iohexol (Omnipaque 350 Mg/ml) 75 ml 1X ONCE IV Last administered on 07/23/20at 08:57; Start 07/23/20 at 09:00; Stop 07/23/20 at 09:01; Status DC Info (CONTRAST GIVEN -- Rx MONITORING) 1 each PRN DAILY PRN MC SEE COMMENTS; Start 07/23/20 at 09:00; Stop 07/25/20 at 08:59 Acetaminophen (Tylenol) 650 mg PRN Q6HRS PRN PO TEMP > 100.3'F; Start 07/23/20 at 10:00 Aspirin (Ecotrin) 325 mg DAILYWBKFT PO ; Start 07/24/20 at 08:00 Aspirin (Aspirin Rectal Supp) 300 mg PRN DAILY PRN VA IF UNABLE TO TAKE PO; Start 07/23/20 at 10:00 Clonidine HCl (Catapres) 0.3 mg Q8HRS PO ; Start 07/23/20 at 14:00; Stop 07/23/20 at 12:00; Status DC Labetalol HCl (Normodyne Iv Push) 10 mg PRN Q10MIN PRN IVP ELEVATED BP, SEE COMMENTS Last administered on 07/23/20at 12:11; Start 07/23/20 at 12:00 Clonidine HCl (Catapres) 0.3 mg PRN Q8HRS PRN PO HTN Last administered on 07/23/20at 21:00; Start 07/23/20 at 12:00 Clopidogrel Bisulfate (Plavix) 75 mg DAILYWBKFT PO Last administered on 07/23/20at 14:24; Start 07/23/20 at 14:15 Cefazolin Sodium/ Dextrose 50 ml @ 100 mls/hr 1X PREOP PRN IV PRIOR TO PROCEDURE; Start 07/24/20 at 06:00; Stop 07/24/20 at 18:00 Fentanyl Citrate (Fentanyl 2ml Vial) 25 mcg PRN Q5MIN PRN IVP MILD PAIN 1-3; Start 07/24/20 at 06:00; Stop 07/25/20 at 05:59 Fentanyl Citrate (Fentanyl 2ml Vial) 50 mcg PRN Q5MIN PRN IVP MODERATE PAIN 4- 6; Start 07/24/20 at 06:00; Stop 07/25/20 at 05:59 Morphine Sulfate (Morphine Sulfate) 1 mg PRN Q10MIN PRN IVP SEVERE PAIN 7-10; Start 07/24/20 at 06:00; Stop 07/25/20 at 05:59 Ringer's Solution 1,000 ml @ 30 mls/hr Q24H IV ; Start 07/24/20 at 06:00; Stop 07/24/20 at 17:59 Hydromorphone HCl (Dilaudid) 0.5 mg PRN Q10MIN PRN IVP SEVERE PAIN 7-10, 2nd CHOICE; Start 07/24/20 at 06:00; Stop 07/25/20 at 05:59 Prochlorperazine Edisylate (Compazine) 5 mg PACU PRN PRN IVP NAUSEA, MRX1; Start 07/24/20 at 06:00; Stop 07/25/20 at 05:59 Losartan Potassium (Cozaar) 50 mg DAILY PO ; Start 07/24/20 at 09:00; Stop 07/23/20 at 16:24; Status DC Propranolol HCl (Inderal) 10 mg DAILY PO ; Start 07/24/20 at 09:00; Stop 07/23/20 at 16:24; Status DC Simvastatin (Zocor) 40 mg QHS PO Last administered on 07/23/20at 20:59; Start 07/23/20 at 21:00 Heparin Sodium (Porcine) 5000 unit/Ringer's Solution 505 ml @ 505 mls/hr 1X ONCE IRR ; Start 07/24/20 at 06:00; Stop 07/24/20 at 06:59; Status DC Cefazolin Sodium 1 gm/Sodium Chloride 500 ml @ 500 mls/hr 1X ONCE IRR ; Start 07/24/20 at 06:00; Stop 07/24/20 at 06:59; Status DC Losartan Potassium (Cozaar) 50 mg DAILY PO Last administered on 07/23/20at 17:17; Start 07/23/20 at 16:30 Propranolol HCl (Inderal) 10 mg DAILY PO Last administered on 07/23/20at 17:17; Start 07/23/20 at 16:30 Active Scripts Active Reported Calcium 500 + D Tablet (Calcium Carbonate/Vitamin D3) 1 Each Tablet 1 Tab PO DAILY 30 Days Aspirin Ec (Aspirin) 81 Mg Tablet.dr 1 Tab PO DAILY Losartan Potassium 50 Mg Tablet 1 Tab PO DAILY Furosemide 40 Mg Tablet 1 Tab PO DAILY Allopurinol 300 Mg Tablet 1 Tab PO DAILY Klor-Con M20 (Potassium Chloride) 20 Meq Tab.er.prt 1 Tab PO DAILY Simvastatin 40 Mg Tablet 1 Tab PO QHS Propranolol Hcl 10 Mg Tablet 10 Mg PO DAILY Vitals/I & O Vital Sign - Last 24 Hours 07/23/20 07/23/20 07/23/20 07/23/20 09:27 09:42 09:57 10:37 Temp 97.8 97.8 Pulse 68 65 61 70 Resp 18 B/P (MAP) 179/86 (117) 177/90 (119) 175/81 (112) 204/94 (130) Pulse Ox 95 94 95 93 O2 Delivery Room Air Room Air Room Air Room Air 07/23/20 07/23/20 07/23/20 07/23/20 11:23 12:11 15:00 17:17 Temp 97.6 97.6 Pulse 70 64 65 Resp 18 B/P (MAP) 204/94 169/70 (103) 165/79 Pulse Ox 91 O2 Delivery Room Air Room Air 07/23/20 07/23/20 07/23/20 07/23/20 17:17 19:49 20:00 21:00 Temp 97.5 97.5 Pulse 65 56 56 Resp 20 B/P (MAP) 165/79 173/78 (109) 173/78 Pulse Ox 93 O2 Delivery Room Air Room Air 07/23/20 07/24/20 07/24/20 23:04 03:50 07:00 Temp 97.5 98.8 97.5 97.5 98.8 97.5 Pulse 63 55 62 Resp 20 24 18 B/P (MAP) 123/59 (80) 122/66 (84) 148/75 (99) Pulse Ox 94 93 94 O2 Delivery Room Air Room Air Room Air Intake and Output 07/23/20 07/23/20 07/24/20 15:00 23:00 07:00 Intake Total 180 ml 240 ml 0 ml Balance 180 ml 240 ml 0 ml Images MRI BRAIN WO 07/23/2020 3:29 PM CLINICAL INDICATION: TIA COMPARISON: CT head same day TECHNIQUE: Multiplanar multisequence MR images of the brain without contrast FINDINGS: There is no restricted diffusion to suggest acute or recent infarct. Ventricles and sulci are mildly enlarged reflecting age-related atrophy. There is mild periventricular white matter hypoattenuation and a few small scattered T2 hyperintense white matter lesions. No intracranial hemorrhage or extra-axial fluid collection. No abnormal susceptibility or evidence of intracranial mass. Globes and orbits are intact. Paranasal sinuses and mastoid air cells are clear. Calvarium is intact. IMPRESSION: 1. No acute intracranial abnormality. 2. Mild age-related volume loss. Justicifation of Admission Dx: Justifications for Admission: Justification of Admission Dx: Yes MUNIR CHAN MD Jul 24, 2020 09:19
[2020-07-24] MEDS: PROPRANOLOL 10 MG TABLET. PO SCH (09:37)
[2020-07-24] MEDS: LOSARTAN POTASSIUM 50 MG TABLET. PO SCH (09:38)
--- NOTE | 2020-07-24 10:40 | CARD ---
MR#: [id number] Date of Study: 07/24/2020 Ordering Physician: MUNIR CHAN, Referring Physician: MUNIR CHAN, Tech: Darlene Joyce TRISTAN APPROVED REPORT EXAM: Two-dimensional and M-mode echocardiogram with Doppler and color Doppler. Other Information Quality : Fair INDICATION CVA/TIA 2D DIMENSIONS RVDd2.7 (2.9-3.5cm)Left Atrium(2D)3.2 (1.6-4.0cm) IVSd0.8 (0.7-1.1cm)Aortic Root(2D)3.2 (2.0-3.7cm) LVDd5.3 (3.9-5.9cm)LVOT Diameter2.2 (1.8-2.4cm) PWd0.9 (0.7-1.1cm)LVDs4.1 (2.5-4.0cm) FS (%) 21.8 %SV57.9 ml LVEF(%)55.0 (>50%) Aortic Valve AoV Peak Phong.101.4cm/sAoV VTI24.0cm AO Peak GR.4.1mmHgLVOT Peak Phong.85.1cm/s LVOT VTI 20.09cmAO Mean GR.2mmHg LUIGI (VMAX)3.10ee2CSB (VTI)3.07cm2 Mitral Valve MV E Yvvhmtgl63.5cm/sMV DECEL [id number] MV A Bbgjbysa59.2cm/sMV YKZ81dk E/A Ratio0.8MVA (PHT)3.52cm2 TDI E/Lateral E'8.4E/Medial E'9.7 Tricuspid Valve TR P. Ypcxuzgv181pj/sRAP HLNOASOR0stRn TR Peak Gr.15naWvDFQX34smXf Pulmonary Vein S1 Seeiblgx15.2cm/sD2 Ywnptdsx84.7cm/s LEFT VENTRICLE The left ventricle is normal size. There is normal left ventricular wall thickness. The left ventricu lar systolic function is normal and the ejection fraction is within normal range. The Ejection Fracti on is 55-60%. There is normal LV segmental wall motion. Transmitral Doppler flow pattern is Grade I-a bnormal relaxation pattern. RIGHT VENTRICLE The right ventricle is normal size. The right ventricular systolic function is normal. ATRIA The left atrium size is normal. The right atrium size is normal. The interatrial septum is intact wit h no evidence for an atrial septal defect or patent foramen ovale as noted on 2-D or Doppler imaging. AORTIC VALVE The aortic valve is calcified but opens well. Doppler and Color Flow revealed no significant aortic r egurgitation. There is no significant aortic valvular stenosis. MITRAL VALVE The mitral valve is calcified but opens well. There is no evidence of mitral valve prolapse. There is no mitral valve stenosis. Doppler and Color Flow revealed no mitral valve regurgitation noted. TRICUSPID VALVE The tricuspid valve is normal in structure and function. Doppler and Color Flow revealed trace tricus pid regurgitation. The PA pressure was estimated at 41 mmHg. There is no tricuspid valve stenosis. PULMONIC VALVE The pulmonic valve is not well visualized. Doppler and Color Flow revealed no pulmonic valvular regur gitation. There is no pulmonic valvular stenosis. GREAT VESSELS The aortic root is normal in size. The ascending aorta is not well seen. The IVC is normal in size an d collapses >50% with inspiration. PERICARDIAL EFFUSION There is no evidence of significant pericardial effusion. Critical Notification Critical Value: No <Conclusion> The left ventricular systolic function is normal and the ejection fraction is within normal range. Th e Ejection Fraction is 55-60%. There is normal LV segmental wall motion. Doppler and Color Flow revealed trace tricuspid regurgitation. The PA pressure was estimated at 41 mm Hg. Signed by : Nikolas Martins, Electronically Approved : 07/24/2020 10:40:09
[2020-07-24] MEDS ORDERED: SURGICEL FIBRILLAR 1X2 EACH. ONE (11:02)
[2020-07-24] MEDS ORDERED: LIDOCAINE 1% PF 30 ML VIAL. ONE (11:02)
[2020-07-24] MEDS ORDERED: MIDAZOLAM HCL/PF 2 MG/2 ML VIAL. ONE (12:00)
[2020-07-24] MEDS ORDERED: ROPIVacaine 0.5% PF 20 ML VIAL. ONE (12:04)
[2020-07-24] MEDS ORDERED: LIDOCAINE 1% PF 2 ML VIAL. ONE (12:05)
[2020-07-24] MEDS ORDERED: GLYCOPYRROLATE 1 MG/5 ML VIAL. ONE (13:04)
[2020-07-24] MEDS ORDERED: PROTAMINE 50 MG/5 ML VIAL. IV ONE (13:39)
[2020-07-24] MEDS ORDERED: hydrALAZINE 20 MG/ML VIAL. ONE (13:46)
--- NOTE | 2020-07-24 14:14 | PDOC ---
BRIEF OPERATIVE NOTE Date: Jul 24, 2020 Pre-Op Diagnosis Symptomatic Left carotid stenosis Post-Op Diagnosis Same Procedure Performed Left carotid endarterectomy, eversion Surgeon Irving Pertty DO Extracorporeal Technician BENITO Nunez Anesthesiologist TREVIN Easley Anesthesia Type: Local, Regional Blood Loss 30mL IV Fluid See anesthesia note Specimens Obtained Discarded Findings Stoker Erector strength equal bilaterally. Complications None Operative Note See dictated op note PHILLY JACKMAN Jul 24, 2020 14:14
[2020-07-24] MEDS ORDERED: HYDROcodone/APAP 5/325MG 1 TAB TABLET PO PRN (14:30)
--- NOTE | 2020-07-24 14:37 | OP ---
DATE OF SURGERY: 07/24/2020 VASCULAR SURGERY OPERATIVE REPORT ATTENDING SURGEON: Irving Rogers DO FASHION EDITOR: BENITO Nunez DO PREOPERATIVE DIAGNOSIS: High-grade symptomatic left internal carotid stenosis. POSTOPERATIVE DIAGNOSIS: High-grade symptomatic left internal carotid stenosis. PROCEDURE: Left carotid endarterectomy with eversion technique. ANESTHESIA: Local with MAC. SPECIMENS: None. ESTIMATED BLOOD LOSS: 30 mL. COMPLICATIONS: None. PREOPERATIVE INDICATIONS: The patient is an 80-year-old male who presented with some left hemispheric symptoms of stroke and TIA that resolved completely without deficit. Fortunately, he had no MRI findings of infarct, but on CT angiogram had significantly bulky plaque within the left internal carotid artery. The patient had previous right carotid endarterectomy in the past. I met the patient on the day of procedure and all risks, benefits and alternatives of the procedure were discussed with the patient and he was agreeable to proceed. OPERATIVE PROCEDURE: The patient was brought to the operating suite and placed in supine position. After establishing appropriate sedation and a left sided cervical block per anesthesia, the patient was prepped and draped in a sterile fashion. Next, timeout procedure was performed. It was confirmed that the patient did receive appropriate perioperative antibiotics and the correct operative site was marked and draped. Following this, a left sided sternocleidomastoid incision was made, carried through skin and subcutaneous tissue. The patient had very poor neck mobility and very poor flexion of his neck, making the dissection much more challenging. I was able to dissect down through the platysma muscle until the sternocleidomastoid muscle was identified. Sternocleidomastoid muscle was identified and reflected laterally exposing the jugular vein. Several tributaries of the jugular vein were individually ligated and divided. Next, I was able to identify the common carotid artery and this was circumferentially dissected and controlled with a vessel loop. I also identified the vagus nerve and this was carefully preserved throughout its entire course. Next, careful dissection of the carotid bifurcation was performed. The patient was heparinized per weight-based protocol at this time. Next, careful dissection of the external carotid artery was performed and controlled with vessel loop. The superior thyroid artery was actually draping over our field and was in a way of our dissection and therefore, I ligated this and divided it with silk ligatures. Next, the mid to distal internal carotid artery was circumferentially dissected up to a healthy distal endpoint. The patient had a bulky calcified plaque, palpable within the carotid bulb. At this point in time, the patient was heparinized per weight-based protocol. After confirming the patient's hemodynamic status to be stable, the internal carotid artery was clamped followed by the common carotid artery followed by the external carotid artery. The patient had no changes in his neurologic status and was following all commands after clamping. Next, an 11-blade scalpel was used to create an arteriotomy and this was extended, and the internal carotid artery was transected from the carotid bifurcation. An endarterectomy plane was created using a Burnham elevator and the entire plaque was everted out of the internal carotid artery up to a healthy distal endpoint. The distal endpoint was directly visualized in my field. Next, copious amounts of heparinized saline solution were used to identify any potential loose fragments and these were all identified and removed. Next, the endarterectomy was completed within the common carotid artery and external carotid artery to my satisfaction. In similar fashion, we used heparinized saline solution to help identify any loose fragments. Once I was satisfied with the endarterectomy, then the internal carotid artery was reattached to the carotid bifurcation using a 6-0 Prolene suture and then the posterior suture line was completed first followed by the anterior suture line. Prior to completing our arteriotomy, we did backbleed and flush the vessels appropriately and then the arteriotomy was closed and flow was restored first to the external carotid artery and common carotid artery. A 4-5 heartbeats were allowed to flush any potential debris through the external system. Next, after confirming the patient's hemodynamic status to be stable, the internal carotid artery clamp was slowly released and then removed. Again, the patient had no changes in his neurologic status the entire case and was moving and following all commands. We had good hemostasis at the level of the arteriotomy. Following this, an 8-[place] drain was placed at the base of the neck and secured in place using a 3-0 nylon drain stitch. Next, the wound was irrigated with heparinized saline solution and then the patient's heparin was reversed with protamine. Manual pressure was held for hemostasis. The patient had some oozy raw tissue from being on dual antiplatelet therapy. Next, fibrillar was placed within the wound and manual pressure was held. Once I was satisfied with the hemostasis and the lap, sponge, needle and instrument count was found to be correct, then the platysma layer was closed using 3-0 Vicryl suture in a running fashion followed by 4-0 Monocryl for the skin followed by Dermabond. A sterile drain dressing was placed at the drain exit site. The patient tolerated the procedure well and was transferred to the postanesthesia care unit in stable condition. IRVING ROGERS DO DR: [id number] JOB#: [id number] / [id number]
--- NOTE | 2020-07-24 14:40 | PDOC ---
PROGRESS NOTES Date of Service: DATE: 07/24/20 TIME: 14:39 Chief Complaint Chief Complaint ASSESSMENT AND PLAN: Resolving transient ischemic attack, hypertensive encephalopathy. admitted. We are giving him IV labetalol, p.r.n. clonidine. Severe left proximal internal carotid artery narrowing admit home meds DVT prophylaxis. Full code. Appreciate Dr. Emanuel's consult. Pre-Op Diagnosis 2-25 Symptomatic Left carotid stenosis Post-Op Diagnosis Same Procedure Performed Left carotid endarterectomy, eversion Surgeon Irving rPetty, Beef Selector BENITO Nunez Anesthesiologist TREVIN Easley Anesthesia Type: Local, Regional Blood Loss 30mL History of Present Illness History of Present Illness CHIEF COMPLAINT: Neuro symptoms. HISTORY OF PRESENT ILLNESS: The patient is a pleasant 80-year-old male who has not taken his meds for a couple of months. He states he has not been able to follow up with his doctor. Today, when he presented with slurred speech and some mental status change, we noticed that his pressure is 217 systolically. He also had stroke symptoms, were concerned he could be having a stroke. I discussed the case with ER physician. We have admitted the patient. We consulted Neurology. I just spoke with Dr. Emanuel. He feels like this might be hypertensive encephalopathy. We are going to get his pressures down and see if he does better. PAST MEDICAL HISTORY: CHF, CAD, arthritis, left carotid endarterectomy, coronary stents. ALLERGIES: None. FAMILY HISTORY: Diabetes. SOCIAL HISTORY: He does not drink, smoke or take drugs. 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 MEDICATIONS: Reviewed, please refer to the MRAD. REVIEW OF SYSTEMS: GENERAL: No history of weight change, weakness or fevers. SKIN: No bruising, hair changes or rashes. EYES: No blurred, double or loss of vision. NOSE AND THROAT: No history of nosebleeds, hoarseness or sore throat. HEART: No history of palpitations, chest pain or shortness of breath on exertion. LUNGS: Denies cough, hemoptysis, wheezing or shortness of breath. GASTROINTESTINAL: Denies changes in appetite, nausea, vomiting, diarrhea or constipation. GENITOURINARY: No history of frequency, urgency, hesitancy or nocturia. NEUROLOGIC: Denies history of numbness, tingling, tremor or weakness. PSYCHIATRIC: No history of panic, anxiety or depression. ENDOCRINE: No history of heat or cold intolerance, polyuria or polydipsia. EXTREMITIES: Denies muscle weakness, joint pain, pain on walking or stiffness. Vitals Vitals Vital Signs Date Time Temp Pulse Resp B/P (MAP) Pulse Ox O2 Delivery O2 Flow Rate FiO2 07/24/20 14:11 98.2 68 14 120/60 96 Simple Mask 13 98.2 Physical Exam Physical Exam GENERAL: No apparent distress. Alert and oriented. HEENT: Normal cephalic atraumatic, external auditory canals are patent EYES: Extraocular muscles are intact, pupils are equally round and reactive to light and accommodation MUSCULOSKELETAL: Well developed, well nourished, good range of motion ENDOCRINE: No thyromegaly was palpated LYMPHATICS: No cervical chain or axillary nodes were noted HEMATOPOIETIC: No bruising NECK: Supple, no JVD, no thyromegaly was noted. LUNGS: Clear to auscultation in all lung freed without rhonchi or wheezing. HEART: RRR, S1, S2 present. Peripheral pulses intact, no obvious murmurs were noted. ABDOMEN: Soft, nontender. Positive bowel sounds no organomegaly, normal bowel sounds. EXTREMITIES: Without any cyanosis, clubbing, or edema. Pedal pulses intact, Homans sign is negative. NEUROLOGIC: Normal speech, normal tone. A & O x3, moves all extremities, no obvious focal deficits. PSYCHIATRIC: Normal affect, normal mood. Stable. SKIN: No ulcerations or rashes, good skin turgor, no jaundice. VASCULAR: Good capillary refill, neurovascular bundle appears to be intact. General: Cooperative Extremities: No cyanosis Labs LABS EXAM: MRI BRAIN WO 07/23/2020 3:29 PM CLINICAL INDICATION: TIA COMPARISON: CT head same day TECHNIQUE: Multiplanar multisequence MR images of the brain without contrast FINDINGS: There is no restricted diffusion to suggest acute or recent infarct. Ventricles and sulci are mildly enlarged reflecting age-related atrophy. There is mild periventricular white matter hypoattenuation and a few small scattered T2 hyperintense white matter lesions. No intracranial hemorrhage or extra-axial fluid collection. No abnormal susceptibility or evidence of intracranial mass. Globes and orbits are intact. Paranasal sinuses and mastoid air cells are clear. Calvarium is intact. IMPRESSION: 1. No acute intracranial abnormality. 2. Mild age-related volume loss. Electronically signed by: Shiela Perry MD (07/23/2020 4:41 PM) [id number] DICTATED and SIGNED BY: SHIELA PERRY MD DATE: 07/23/20 [id number] CTA STROKE HEAD/NECK w/o History:Reason: speech changes omni 350 75ml / Spl. Instructions: / History: Technique: After bolus of intravenous contrast, volumetric CT data acquisition was acquired of the head and neck. Multiplanar reconstruction images to include MIP and 3-D reconstruction images are submitted. Exposure: One or more of the following individualized dose reduction techniques were utilized for this examination: 1. Automated exposure control 2. Adjustment of the mA and/or kV according to patient size 3. Use of iterative reconstruction technique. Comparison: None Any determination of stenosis is based on NASCET criteria. Head CTA: ICA: Bilateral carotid siphon atheromatous plaque with mild narrowings. MCA: No stenosis, occlusion or aneurysm. JACOB: No stenosis, occlusion or aneurysm. LACROSSE COACH: No stenosis, occlusion or aneurysm. Basilar artery: No stenosis, occlusion or aneurysm. Distal vertebral arteries: Moderate focal narrowing of the left distal intracranial vertebral artery. Patent superior sagittal, straight, transverse and sigmoid venous sinuses. CT angiogram neck: Aortic arch: Mild atheromatous plaque within the aortic arch and branch vessels. Subclavian arteries: Mild multifocal narrowing of the bilateral subclavian arteries due to atheromatous plaque. Common carotid arteries: No stenosis, occlusion or dissection. Mild atheromatous plaque. Internal carotid arteries: Postoperative changes right carotid endarterectomy. Severe calcified plaque within the left carotid bifurcation. 72 percent narrowing of the left proximal internal carotid artery. Additional 60 percent narrowing of the left internal carotid artery origin. External carotid arteries: Moderate narrowing of the left external carotid artery origin. Vertebral arteries: Mild narrowing of the left vertebral artery origin. Moderate narrowing of the right vertebral artery origin. No occlusion. Right apical parenchymal scarring. Bilateral thyroid nodules largest on the right measures 9 mm. Bones: Multilevel cervical spondylosis. Multilevel neuroforaminal narrowing. No high-grade canal stenosis. Impression: 1. Severe left proximal internal carotid artery narrowings. 2. Moderate focal narrowing of the left distal intracranial vertebral artery and right proximal vertebral artery origin. 3. Additional atheromatous plaque within the head and neck with mild narrowings, as described. FOR INTERNAL CODING PURPOSES Critical result: Findings discussed with Rom Redd at 07/23/2020 9:18 AM. RESULT CODE: (C) Electronically signed by: Truman Foster DO (07/23/2020 9:22 AM) [id number] Laboratory Tests Test 07/23/20 14:50 07/24/20 04:40 SARS-CoV-2 Antigen (Rapid) Negative (NEGATIVE) White Blood Count 4.6 x10^3/uL (4.0-11.0) Red Blood Count 4.05 x10^6/uL (4.30-5.70) Hemoglobin 13.9 g/dL (13.0-17.5) Hematocrit 41.3 % (39.0-53.0) Mean Corpuscular Volume 102 fL (79-100) Mean Corpuscular Hemoglobin 34 pg (25-35) Mean Corpuscular Hemoglobin Concent 34 g/dL (31-37) Red Cell Distribution Width 15.0 % (11.5-14.5) Platelet Count 154 x10^3/uL (140-400) Neutrophils (%) (Auto) 50 % (31-73) Lymphocytes (%) (Auto) 30 % (24-48) Monocytes (%) (Auto) 11 % (0-9) Eosinophils (%) (Auto) 9 % (0-3) Basophils (%) (Auto) 1 % (0-3) Neutrophils # (Auto) 2.3 x10^3/uL (1.8-7.7) Lymphocytes # (Auto) 1.4 x10^3/uL (1.0-4.8) Monocytes # (Auto) 0.5 x10^3/uL (0.0-1.1) Eosinophils # (Auto) 0.4 x10^3/uL (0.0-0.7) Basophils # (Auto) 0.0 x10^3/uL (0.0-0.2) Sodium Level 139 mmol/L (136-145) Potassium Level 3.8 mmol/L (3.5-5.1) Chloride Level 106 mmol/L (98-107) Carbon Dioxide Level 28 mmol/L (21-32) Anion Gap 5 (6-14) Blood Urea Nitrogen 15 mg/dL (8-26) Creatinine 1.0 mg/dL (0.7-1.3) Estimated GFR (Cockcroft-Gault) 71.5 Glucose Level 95 mg/dL (70-99) Calcium Level 8.2 mg/dL (8.5-10.1) Triglycerides Level 41 mg/dL (0-150) Cholesterol Level 94 mg/dL (0-200) LDL Cholesterol, Calculated 53 mg/dL (0-100) VLDL Cholesterol, Calculated 8 mg/dL (0-40) Non-HDL Cholesterol Calculated 61 mg/dL (0-129) HDL Cholesterol 33 mg/dL (40-60) Cholesterol/HDL Ratio 2.8 Assessment and Plan Assessmemt and Plan Problems Medical Problems: (1) Carotid stenosis Status: Acute (2) Carotid stenosis, right Status: Acute (3) TIA (transient ischemic attack) Status: Acute Comment Review of Relevant I have reviewed the following items radha (where applicable) has been applied. Labs Laboratory Tests Test 07/23/20 08:42 07/23/20 09:02 07/23/20 14:50 07/24/20 04:40 Glucose (Fingerstick) 103 mg/dL (70-99) White Blood Count 5.5 x10^3/uL (4.0-11.0) 4.6 x10^3/uL (4.0-11.0) Red Blood Count 4.53 x10^6/uL (4.30-5.70) 4.05 x10^6/uL (4.30-5.70) Hemoglobin 15.4 g/dL (13.0-17.5) 13.9 g/dL (13.0-17.5) Hematocrit 46.0 % (39.0-53.0) 41.3 % (39.0-53.0) Mean Corpuscular Volume 102 fL (79-100) 102 fL (79-100) Mean Corpuscular Hemoglobin 34 pg (25-35) 34 pg (25-35) Mean Corpuscular Hemoglobin Concent 34 g/dL (31-37) 34 g/dL (31-37) Red Cell Distribution Width 14.9 % (11.5-14.5) 15.0 % (11.5-14.5) Platelet Count 182 x10^3/uL (140-400) 154 x10^3/uL (140-400) Neutrophils (%) (Auto) 55 % (31-73) 50 % (31-73) Lymphocytes (%) (Auto) 27 % (24-48) 30 % (24-48) Monocytes (%) (Auto) 11 % (0-9) 11 % (0-9) Eosinophils (%) (Auto) 7 % (0-3) 9 % (0-3) Basophils (%) (Auto) 1 % (0-3) 1 % (0-3) Neutrophils # (Auto) 3.0 x10^3/uL (1.8-7.7) 2.3 x10^3/uL (1.8-7.7) Lymphocytes # (Auto) 1.5 x10^3/uL (1.0-4.8) 1.4 x10^3/uL (1.0-4.8) Monocytes # (Auto) 0.6 x10^3/uL (0.0-1.1) 0.5 x10^3/uL (0.0-1.1) Eosinophils # (Auto) 0.4 x10^3/uL (0.0-0.7) 0.4 x10^3/uL (0.0-0.7) Basophils # (Auto) 0.0 x10^3/uL (0.0-0.2) 0.0 x10^3/uL (0.0-0.2) Prothrombin Time 15.8 SEC (11.7-14.0) Prothromb Time International Ratio 1.3 (0.8-1.1) Activated Partial Thromboplast Time 31 SEC (24-38) Sodium Level 139 mmol/L (136-145) 139 mmol/L (136-145) Potassium Level 4.2 mmol/L (3.5-5.1) 3.8 mmol/L (3.5-5.1) Chloride Level 106 mmol/L (98-107) 106 mmol/L (98-107) Carbon Dioxide Level 26 mmol/L (21-32) 28 mmol/L (21-32) Anion Gap 7 (6-14) 5 (6-14) Blood Urea Nitrogen 15 mg/dL (8-26) 15 mg/dL (8-26) Creatinine 0.9 mg/dL (0.7-1.3) 1.0 mg/dL (0.7-1.3) Estimated GFR (Cockcroft-Gault) 80.8 71.5 Glucose Level 93 mg/dL (70-99) 95 mg/dL (70-99) Calcium Level 8.2 mg/dL (8.5-10.1) 8.2 mg/dL (8.5-10.1) Troponin I Quantitative < 0.017 ng/mL (0.000-0.055) SARS-CoV-2 Antigen (Rapid) Negative (NEGATIVE) Triglycerides Level 41 mg/dL (0-150) Cholesterol Level 94 mg/dL (0-200) LDL Cholesterol, Calculated 53 mg/dL (0-100) VLDL Cholesterol, Calculated 8 mg/dL (0-40) Non-HDL Cholesterol Calculated 61 mg/dL (0-129) HDL Cholesterol 33 mg/dL (40-60) Cholesterol/HDL Ratio 2.8 Laboratory Tests Test 07/23/20 14:50 07/24/20 04:40 SARS-CoV-2 Antigen (Rapid) Negative (NEGATIVE) White Blood Count 4.6 x10^3/uL (4.0-11.0) Red Blood Count 4.05 x10^6/uL (4.30-5.70) Hemoglobin 13.9 g/dL (13.0-17.5) Hematocrit 41.3 % (39.0-53.0) Mean Corpuscular Volume 102 fL (79-100) Mean Corpuscular Hemoglobin 34 pg (25-35) Mean Corpuscular Hemoglobin Concent 34 g/dL (31-37) Red Cell Distribution Width 15.0 % (11.5-14.5) Platelet Count 154 x10^3/uL (140-400) Neutrophils (%) (Auto) 50 % (31-73) Lymphocytes (%) (Auto) 30 % (24-48) Monocytes (%) (Auto) 11 % (0-9) Eosinophils (%) (Auto) 9 % (0-3) Basophils (%) (Auto) 1 % (0-3) Neutrophils # (Auto) 2.3 x10^3/uL (1.8-7.7) Lymphocytes # (Auto) 1.4 x10^3/uL (1.0-4.8) Monocytes # (Auto) 0.5 x10^3/uL (0.0-1.1) Eosinophils # (Auto) 0.4 x10^3/uL (0.0-0.7) Basophils # (Auto) 0.0 x10^3/uL (0.0-0.2) Sodium Level 139 mmol/L (136-145) Potassium Level 3.8 mmol/L (3.5-5.1) Chloride Level 106 mmol/L (98-107) Carbon Dioxide Level 28 mmol/L (21-32) Anion Gap 5 (6-14) Blood Urea Nitrogen 15 mg/dL (8-26) Creatinine 1.0 mg/dL (0.7-1.3) Estimated GFR (Cockcroft-Gault) 71.5 Glucose Level 95 mg/dL (70-99) Calcium Level 8.2 mg/dL (8.5-10.1) Triglycerides Level 41 mg/dL (0-150) Cholesterol Level 94 mg/dL (0-200) LDL Cholesterol, Calculated 53 mg/dL (0-100) VLDL Cholesterol, Calculated 8 mg/dL (0-40) Non-HDL Cholesterol Calculated 61 mg/dL (0-129) HDL Cholesterol 33 mg/dL (40-60) Cholesterol/HDL Ratio 2.8 Medications Current Medications Iohexol (Omnipaque 350 Mg/ml) 75 ml 1X ONCE IV Last administered on 07/23/20at 08:57; Start 07/23/20 at 09:00; Stop 07/23/20 at 09:01; Status DC Info (CONTRAST GIVEN -- Rx MONITORING) 1 each PRN DAILY PRN MC SEE COMMENTS; Start 07/23/20 at 09:00; Stop 07/25/20 at 08:59 Acetaminophen (Tylenol) 650 mg PRN Q6HRS PRN PO TEMP > 100.3'F; Start 07/23/20 at 10:00 Aspirin (Ecotrin) 325 mg DAILYWBKFT PO ; Start 07/24/20 at 08:00 Aspirin (Aspirin Rectal Supp) 300 mg PRN DAILY PRN PA IF UNABLE TO TAKE PO; Start 07/23/20 at 10:00 Clonidine HCl (Catapres) 0.3 mg Q8HRS PO ; Start 07/23/20 at 14:00; Stop 07/23/20 at 12:00; Status DC Labetalol HCl (Normodyne Iv Push) 10 mg PRN Q10MIN PRN IVP ELEVATED BP, SEE COMMENTS Last administered on 07/23/20at 12:11; Start 07/23/20 at 12:00 Clonidine HCl (Catapres) 0.3 mg PRN Q8HRS PRN PO HTN Last administered on 07/23/20at 21:00; Start 07/23/20 at 12:00 Clopidogrel Bisulfate (Plavix) 75 mg DAILYWBKFT PO Last administered on 07/23/20at 14:24; Start 07/23/20 at 14:15 Cefazolin Sodium/ Dextrose 50 ml @ 100 mls/hr 1X PREOP PRN IV PRIOR TO PROCEDURE Last administered on 07/24/20at 12:21; Start 07/24/20 at 06:00; Stop 07/24/20 at 18:00 Fentanyl Citrate (Fentanyl 2ml Vial) 25 mcg PRN Q5MIN PRN IVP MILD PAIN 1-3; Start 07/24/20 at 06:00; Stop 07/25/20 at 05:59 Fentanyl Citrate (Fentanyl 2ml Vial) 50 mcg PRN Q5MIN PRN IVP MODERATE PAIN 4-6 ; Start 07/24/20 at 06:00; Stop 07/25/20 at 05:59 Morphine Sulfate (Morphine Sulfate) 1 mg PRN Q10MIN PRN IVP SEVERE PAIN 7-10; Start 07/24/20 at 06:00; Stop 07/25/20 at 05:59 Ringer's Solution 1,000 ml @ 30 mls/hr Q24H IV Last administered on 07/24/20at 11:40; Start 07/24/20 at 06:00; Stop 07/24/20 at 17:59 Hydromorphone HCl (Dilaudid) 0.5 mg PRN Q10MIN PRN IVP SEVERE PAIN 7-10, 2nd CHOICE; Start 07/24/20 at 06:00; Stop 07/25/20 at 05:59 Prochlorperazine Edisylate (Compazine) 5 mg PACU PRN PRN IVP NAUSEA, MRX1; Start 07/24/20 at 06:00; Stop 07/25/20 at 05:59 Losartan Potassium (Cozaar) 50 mg DAILY PO ; Start 07/24/20 at 09:00; Stop 07/23/20 at 16:24; Status DC Propranolol HCl (Inderal) 10 mg DAILY PO ; Start 07/24/20 at 09:00; Stop 07/23/20 at 16:24; Status DC Simvastatin (Zocor) 40 mg QHS PO Last administered on 07/23/20at 20:59; Start 07/23/20 at 21:00 Heparin Sodium (Porcine) 5000 unit/Ringer's Solution 505 ml @ 505 mls/hr 1X ONCE IRR Last administered on 07/24/20at 12:42; Start 07/24/20 at 06:00; Stop 07/24/20 at 06:59; Status DC Cefazolin Sodium 1 gm/Sodium Chloride 500 ml @ 500 mls/hr 1X ONCE IRR Last administered on 07/24/20at 12:42; Start 07/24/20 at 06:00; Stop 07/24/20 at 06:59; Status DC Losartan Potassium (Cozaar) 50 mg DAILY PO Last administered on 07/24/20at 09:38; Start 07/23/20 at 16:30 Propranolol HCl (Inderal) 10 mg DAILY PO Last administered on 07/24/20at 09:37; Start 07/23/20 at 16:30 Cellulose (Surgicel Fibrillar 1x2) 1 each STK-MED ONCE .ROUTE Last administered on 07/24/20at 13:38; Start 07/24/20 at 11:02; Stop 07/24/20 at 11:02; Status DC Lidocaine HCl (Xylocaine 1% Pf 30ml Vial) 30 ml STK-MED ONCE .ROUTE Last administered on 07/24/20at 12:42; Start 07/24/20 at 11:02; Stop 07/24/20 at 11:02; Status DC Midazolam HCl (Versed) 2 mg STK-MED ONCE .ROUTE ; Start 07/24/20 at 12:00; Stop 07/24/20 at 12:00; Status DC Ropivacaine (Naropin 0.5%) 20 ml STK-MED ONCE .ROUTE ; Start 07/24/20 at 12:04; Stop 07/24/20 at 12:04; Status DC Lidocaine HCl (Xylocaine-Mpf 1% 2ml Vial) 2 ml STK-MED ONCE .ROUTE ; Start 07/24/20 at 12:05; Stop 07/24/20 at 12:06; Status DC Glycopyrrolate (Robinul) 1 mg STK-MED ONCE .ROUTE ; Start 07/24/20 at 13:04; Stop 07/24/20 at 13:04; Status DC Protamine Sulfate (Protamine) 50 mg STK-MED ONCE IV ; Start 07/24/20 at 13:39; Stop 07/24/20 at 13:39; Status DC Hydralazine HCl (Apresoline Inj) 20 mg STK-MED ONCE .ROUTE ; Start 07/24/20 at 13:46; Stop 07/24/20 at 13:46; Status DC Cefazolin Sodium/ Dextrose 50 ml @ 100 mls/hr Q8H IV ; Start 07/24/20 at 20:30; Stop 07/25/20 at 04:59 Hydralazine HCl (Apresoline Inj) 10 mg PRN Q1HR PRN IVP ELEVATED BP, SEE COMMENTS; Start 07/24/20 at 14:30 Morphine Sulfate (Morphine Sulfate) 2 mg PRN Q2HR PRN IV PAIN; Start 07/24/20 at 14:30; Status UNV Acetaminophen/ Hydrocodone Bitart (Lortab 5/325) 1 tab PRN Q4HRS PRN PO PAIN; Start 07/24/20 at 14:30; Status UNV Active Scripts Active Reported Calcium 500 + D Tablet (Calcium Carbonate/Vitamin D3) 1 Each Tablet 1 Tab PO DAILY 30 Days Aspirin Ec (Aspirin) 81 Mg Tablet.dr 1 Tab PO DAILY Losartan Potassium 50 Mg Tablet 1 Tab PO DAILY Furosemide 40 Mg Tablet 1 Tab PO DAILY Allopurinol 300 Mg Tablet 1 Tab PO DAILY Klor-Con M20 (Potassium Chloride) 20 Meq Tab.er.prt 1 Tab PO DAILY Simvastatin 40 Mg Tablet 1 Tab PO QHS Propranolol Hcl 10 Mg Tablet 10 Mg PO DAILY Vitals/I & O Vital Sign - Last 24 Hours 07/23/20 07/23/20 07/23/20 07/23/20 15:00 17:17 17:17 19:49 Temp 97.6 97.5 97.6 97.5 Pulse 64 65 65 56 Resp 18 20 B/P (MAP) 169/70 (103) 165/79 165/79 173/78 (109) Pulse Ox 91 93 O2 Delivery Room Air Room Air 07/23/20 07/23/20 07/23/20 07/24/20 20:00 21:00 23:04 03:50 Temp 97.5 98.8 97.5 98.8 Pulse 56 63 55 Resp 20 24 B/P (MAP) 173/78 123/59 (80) 122/66 (84) Pulse Ox 94 93 O2 Delivery Room Air Room Air Room Air 07/24/20 07/24/20 07/24/20 07/24/20 07:00 08:00 09:37 09:38 Temp 97.5 97.5 Pulse 62 62 57 Resp 18 B/P (MAP) 148/75 (99) 155/67 155/67 Pulse Ox 94 O2 Delivery Room Air Room Air 07/24/20 07/24/20 07/24/20 07/24/20 11:00 11:43 14:11 14:11 Temp 98.0 97.5 98.2 98.0 97.5 98.2 Pulse 58 62 68 Resp 18 15 14 B/P (MAP) 146/99 (115) 194/85 120/60 Pulse Ox 93 95 96 O2 Delivery Room Air Room Air Mask Simple Mask O2 Flow Rate 13 13 Intake and Output0 07/23/20 07/23/20 07/24/20 15:00 23:00 07:00 Intake Total 180 ml 240 ml 0 ml Balance 180 ml 240 ml 0 ml Justicifation of Admission Dx: Justifications for Admission: Justification of Admission Dx: Yes GAIL VANG MD Jul 24, 2020 14:40
--- NOTE | 2020-07-24 14:49 | NUR ---
SS following for discharge planning. SS reviewed pt chart and discussed with pt RN. Pt is from home and is currently on room air. COVID19 negative. PT/OT recommended home independent. Pt having left carotid endarterectomy today. SS will continue to follow for discharge planning.
--- NOTE | 2020-07-24 15:33 | PDOC ---
Provider Note Date of Service: DATE: 07/24/20 TIME: 15:26 Provider Note Provider Note Vascular update Paged post operatively when pt in PACU. He is having expressive aphasia, he is frustrated by not being able to say what he wants to say. He can get words out that make sense some of the time, other times are garbled and slurred and obviously not what he is trying to say. His exam is otherwise insignificant with tongue midline, no facial droop, all four extremities active ROM intact with equal strength bilaterally, equal post office manager strength bilaterally. His systolic blood pressures have ranged from 140-160 with the arm cuff, with slight discrepancy with the art line which was reading around 170-180. [address] Pretty and got further orders for stat head CT And CTA. We also discussed with Dr. Chen who will watch for CT results as well. Pt will go to ICU for closer monitoring following CT. I discussed with sister, Kelly. 1555: CTA reviewed by myself and Dr. Pretty. Patency to Left ICA. Head CT reports No evidence of acute intracranial abnormality or significant interval change. Cont ICU monitoring, BP control, neuro checks. Justicifation of Admission Dx: Justifications for Admission: Justification of Admission Dx: Yes PHILLY JACKMAN Jul 24, 2020 15:33
--- NOTE | 2020-07-24 15:42 | RAD ---
EXAMINATION: CT HEAD/BRAIN WO (CT HEAD WITHOUT IV CONTRAST) CLINICAL HISTORY: Speech abnormality TECHNIQUE: Serial axial images without IV contrast were obtained from the vertex to the foramen magnu m. CT Dose Reduction Employed: One or more of the following individualized dose reduction techniques wer e utilized for this examination: 1. Automated exposure control 2. Adjustment of the mA and/or kV ac cording to patient size 3. Use of iterative reconstruction technique. COMPARISON: CT head and MR brain 07/23/2020 FINDINGS: Acute Change: No evidence of an acute infarct or other acute parenchymal process. Hemorrhage: No evidence of acute intracranial hemorrhage. Mass Lesion/Mass Effect: No evidence of intracranial mass or extraaxial fluid collection. No signific ant mass effect. Chronic Change: Scattered patchy foci of hypoattenuation in the supratentorial white matter, nonspeci fic but likely represents mild microvascular ischemia. Atherosclerotic calcification of the anterior and posterior circulation. Parenchyma: Mild to moderate generalized volume loss. Parenchyma otherwise within normal limits for a ge. Ventricles: Ventricular enlargement concordant with degree of parenchymal volume loss. Paranasal Sinuses and Skull Base: Visualized paranasal sinuses clear. Visualized skull base and soft tissues unremarkable. IMPRESSION: No evidence of acute intracranial abnormality or significant interval change. Electronically signed by: Simone Tong DO (07/24/2020 3:39 PM) [id number]
[2020-07-24] MEDS ORDERED: CONTRAST GIVEN. MC PRN (15:45)
[2020-07-24] MEDS ORDERED: IOHEXOL 350 MG/ML 100 ML VIAL. IV ONE (15:45)
--- NOTE | 2020-07-24 15:50 | NUR ---
Patient admit from OR post Left carotid endarterectomy. Telephone report recieved by OR nurse Miryam and floor nurse Kristi. Patient A/O x4 with some expressive aphagia. A-line zeroed and balanced with SBP > 180. Administered 10mg IV hydralazine and 2mg IV morphine which brought SBP down in the 150's. Patient stood bedside with assistance and used the urinal/600ml urine output. Sister Kelly at bedside. Will monitor.
[2020-07-24] MEDS: hydrALAZINE 20 MG/ML VIAL. IVP PRN ×2 (16:09→20:27)
[2020-07-24] MEDS: MORPHINE SULFATE 2 MG/ML VIAL. IV PRN (16:11)
--- NOTE | 2020-07-24 16:31 | RAD ---
CTA of the head and neck with contrast 07/24/2020 Clinical history: Expressive aphasia post left carotid endarterectomy. Technique: After the intravenous administration of 75 cc of Omnipaque 350, contiguous, 0.625 mm axial sections were obtained through the upper chest, neck and head. Multiplanar 3-D MIP and volume render ed 3-D reconstructed images were obtained. One or more of the following individualized dose reduction techniques were utilized for this study: 1. Automated exposure control. 2. Adjustment of the mA and/or kV according to patient size. 3. Use of iterative reconstruction technique. Findings: Comparison is made to patient's CT scan of the head performed earlier today. Additional com parison is made to patient's CTA of the head and neck dated 07/23/2020. Scattered atherosclerotic plaque formation seen involving the thoracic aortic arch and its branches. The origins of the brachiocephalic, left common carotid and left subclavian arteries from the thoraci c aortic arch are patent. The origin of the right common carotid artery and both vertebral arteries a re patent. The patient is post bilateral carotid endarterectomy. The left carotid endarterectomy has occurred si nce yesterday study. Mild to moderate atheromatous/atherosclerotic plaque formation is seen involving the carotid bifurcations and proximal internal carotid arteries. No hemodynamically significant sten osis or area of occlusion is seen. No carotid or vertebral arterial dissection is noted. The high-gra de stenosis seen on the previous examination involving the left internal carotid artery has resolved. Extensive subcutaneous emphysema is seen within soft tissues of the left neck. A surgical drain is no sondra in place. No hematoma or abnormal fluid collection is seen. The vertebral arteries are codominant. Both vertebral arteries demonstrate normal antegrade flow. No area stenosis or occlusion is seen. Intracranially, scattered atherosclerotic plaque formation is seen involving the cavernous portions o f both internal carotid arteries. No hemodynamically significant stenosis or area of occlusion is see n. The basilar artery is patent. The anterior, middle and posterior cerebral arteries and their branc hes are within normal limits. No area of stenosis or occlusion is seen. No intracranial aneurysm is n oted. The major dural venous sinuses are patent. No area of abnormal contrast enhancement is seen. An area of scarring is again seen involving the right upper lobe. The osseous structures are unchanged. Impression: The patient is post left carotid endarterectomy since the previous examination. The steno sis involving the proximal left internal carotid artery has resolved. No area of stenosis or occlusio n is seen. Stenosis calculation for CTA are based on measurement of the distal internal carotid artery diameter in accordance with the NASCET methodology. Electronically signed by: Dante Cunningham MD (07/24/2020 4:29 PM) [id number]
[2020-07-24] MEDS: SIMVASTATIN 40 MG TABLET. PO SCH (20:53)
[2020-07-25] VITALS (13 sets, daily range): BP systolic 112–166; BP diastolic 38–74
[2020-07-25] MEDS: MORPHINE SULFATE 2 MG/ML VIAL. IV PRN (02:27)
[2020-07-25] MEDS: hydrALAZINE 20 MG/ML VIAL. IVP PRN (04:30)
[2020-07-25] MEDS: CLOPIDOGREL BISULFATE 75 MG TABLET PO SCH (08:00)
[2020-07-25] MEDS: ASPIRIN ENTERIC COATED 325 MG TABLET.DR. PO SCH (08:00)
--- NOTE | 2020-07-25 08:45 | PDOC ---
PROGRESS NOTES Date of Service: DATE: 07/25/20 TIME: 08:45 Chief Complaint Chief Complaint ASSESSMENT AND PLAN: Resolving transient ischemic attack, hypertensive encephalopathy. metabolic encephalopathy admitted. We are giving him IV labetalol, p.r.n. clonidine. Severe left proximal internal carotid artery narrowing admit home meds DVT prophylaxis. Full code. Appreciate Dr. Chan's consult. Pre-Op Diagnosis 2-25 Symptomatic Left carotid stenosis Post-Op Diagnosis Same Procedure Performed Left carotid endarterectomy, eversion Surgeon Irving Pretty, Pyrometallurgical Engineer BENITO Nunez Anesthesiologist TREVIN Easley Anesthesia Type: Local, Regional Blood Loss 30mL 07-25 was less responsive earlier, D/W DR CHAN? MRI The patient is post left carotid endarterectomy since the previous examination. The stenosis involving the proximal left internal carotid artery has resolved. No area of stenosis or occlusion is seen. CTA NECK 35 MIN CC TIME History of Present Illness History of Present Illness CHIEF COMPLAINT: Neuro symptoms. HISTORY OF PRESENT ILLNESS: The patient is a pleasant 80-year-old male who has not taken his meds for a couple of months. He states he has not been able to follow up with his doctor. Today, when he presented with slurred speech and some mental status change, we noticed that his pressure is 217 systolically. He also had stroke symptoms, were concerned he could be having a stroke. I discussed the case with ER physician. We have admitted the patient. We consulted Neurology. I just spoke with Dr. Chan. He feels like this might be hypertensive encephalopathy. We are going to get his pressures down and see if he does better. PAST MEDICAL HISTORY: CHF, CAD, arthritis, left carotid endarterectomy, coronary stents. ALLERGIES: None. FAMILY HISTORY: Diabetes. SOCIAL HISTORY: He does not drink, smoke or take drugs. 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 MEDICATIONS: Reviewed, please refer to the MRAD. REVIEW OF SYSTEMS: GENERAL: No history of weight change, weakness or fevers. SKIN: No bruising, hair changes or rashes. EYES: No blurred, double or loss of vision. NOSE AND THROAT: No history of nosebleeds, hoarseness or sore throat. HEART: No history of palpitations, chest pain or shortness of breath on exertion. LUNGS: Denies cough, hemoptysis, wheezing or shortness of breath. GASTROINTESTINAL: Denies changes in appetite, nausea, vomiting, diarrhea or constipation. GENITOURINARY: No history of frequency, urgency, hesitancy or nocturia. NEUROLOGIC: Denies history of numbness, tingling, tremor or weakness. PSYCHIATRIC: No history of panic, anxiety or depression. ENDOCRINE: No history of heat or cold intolerance, polyuria or polydipsia. EXTREMITIES: Denies muscle weakness, joint pain, pain on walking or stiffness. Vitals Vitals Vital Signs Date Time Temp Pulse Resp B/P (MAP) Pulse Ox O2 Delivery O2 Flow Rate FiO2 07/25/20 07:00 102 13 132/43 (72) 96 Nasal Cannula 2.0 07/25/20 04:00 98.0 98.0 Physical Exam Physical Exam GENERAL: No apparent distress. Alert and oriented. HEENT: Normal cephalic atraumatic, external auditory canals are patent EYES: Extraocular muscles are intact, pupils are equally round and reactive to light and accommodation MUSCULOSKELETAL: Well developed, well nourished, good range of motion ENDOCRINE: No thyromegaly was palpated LYMPHATICS: No cervical chain or axillary nodes were noted HEMATOPOIETIC: No bruising NECK: Supple, no JVD, no thyromegaly was noted. LUNGS: Clear to auscultation in all lung freed without rhonchi or wheezing. HEART: RRR, S1, S2 present. Peripheral pulses intact, no obvious murmurs were noted. ABDOMEN: Soft, nontender. Positive bowel sounds no organomegaly, normal bowel sounds. EXTREMITIES: Without any cyanosis, clubbing, or edema. Pedal pulses intact, Homans sign is negative. NEUROLOGIC: Normal speech, normal tone. A & O x3, moves all extremities, no obvious focal deficits. PSYCHIATRIC: Normal affect, normal mood. Stable. SKIN: No ulcerations or rashes, good skin turgor, no jaundice. VASCULAR: Good capillary refill, neurovascular bundle appears to be intact. General: Cooperative Extremities: No cyanosis Labs LABS Signed PATIENT: BLUE OHDGES ACCOUNT: [id number] : 1940 LOCATION: [facility] ICU AGE: 80 SEX: M EXAM STATUS: ADM IN ORD. PHYSICIAN: PHILLY JACKMAN REASON: Expressive aphasia follow carotid endarterectomy PROCEDURE: CT ANGIOGRAPHY HEAD AND NECK CTA of the head and neck with contrast 07/24/2020 Clinical history: Expressive aphasia post left carotid endarterectomy. Technique: After the intravenous administration of 75 cc of Omnipaque 350, contiguous, 0.625 mm axial sections were obtained through the upper chest, neck and head. Multiplanar 3-D MIP and volume rendered 3-D reconstructed images were obtained. One or more of the following individualized dose reduction techniques were utilized for this study: 1. Automated exposure control. 2. Adjustment of the mA and/or kV according to patient size. 3. Use of iterative reconstruction technique. Findings: Comparison is made to patient's CT scan of the head performed earlier today. Additional comparison is made to patient's CTA of the head and neck dated 07/23/2020. Scattered atherosclerotic plaque formation seen involving the thoracic aortic arch and its branches. The origins of the brachiocephalic, left common carotid and left subclavian arteries from the thoracic aortic arch are patent. The origi n of the right common carotid artery and both vertebral arteries are patent. The patient is post bilateral carotid endarterectomy. The left carotid endarterectomy has occurred since yesterday study. Mild to moderate atheromatous/atherosclerotic plaque formation is seen involving the carotid bifurcations and proximal internal carotid arteries. No hemodynamically significant stenosis or area of occlusion is seen. No carotid or vertebral arterial dissection is noted. The high-grade stenosis seen on the previous examination involving the left internal carotid artery has resolved. Extensive subcutaneous emphysema is seen within soft tissues of the left neck. A surgical drain is noted in place. No hematoma or abnormal fluid collection is seen. The vertebral arteries are codominant. Both vertebral arteries demonstrate normal antegrade flow. No area stenosis or occlusion is seen. Intracranially, scattered atherosclerotic plaque formation is seen involving the cavernous portions of both internal carotid arteries. No hemodynamically significant stenosis or area of occlusion is seen. The basilar artery is patent. The anterior, middle and posterior cerebral arteries and their branches are within normal limits. No area of stenosis or occlusion is seen. No intracranial aneurysm is noted. The major dural venous sinuses are patent. No area of abnormal contrast enhancement is seen. An area of scarring is again seen involving the right upper lobe. The osseous structures are unchanged. Impression: The patient is post left carotid endarterectomy since the previous examination. The stenosis involving the proximal left internal carotid artery has resolved. No area of stenosis or occlusion is seen. Stenosis calculation for CTA are based on measurement of the distal internal ca rotid artery diameter in accordance with the NASCET methodology. Electronically signed by: Dante Cunningham MD (07/24/2020 4:29 PM) [id number] DICTATED and SIGNED BY: DANTE CUNNINGHAM MD Assessment and Plan Assessmemt and Plan Problems Medical Problems: (1) Carotid stenosis Status: Acute (2) Carotid stenosis, right Status: Acute (3) TIA (transient ischemic attack) Status: Acute Comment Review of Relevant I have reviewed the following items radha (where applicable) has been applied. Labs Laboratory Tests Test 07/23/20 09:02 07/23/20 14:50 07/24/20 04:40 White Blood Count 5.5 x10^3/uL (4.0-11.0) 4.6 x10^3/uL (4.0-11.0) Red Blood Count 4.53 x10^6/uL (4.30-5.70) 4.05 x10^6/uL (4.30-5.70) Hemoglobin 15.4 g/dL (13.0-17.5) 13.9 g/dL (13.0-17.5) Hematocrit 46.0 % (39.0-53.0) 41.3 % (39.0-53.0) Mean Corpuscular Volume 102 fL (79-100) 102 fL (79-100) Mean Corpuscular Hemoglobin 34 pg (25-35) 34 pg (25-35) Mean Corpuscular Hemoglobin Concent 34 g/dL (31-37) 34 g/dL (31-37) Red Cell Distribution Width 14.9 % (11.5-14.5) 15.0 % (11.5-14.5) Platelet Count 182 x10^3/uL (140-400) 154 x10^3/uL (140-400) Neutrophils (%) (Auto) 55 % (31-73) 50 % (31-73) Lymphocytes (%) (Auto) 27 % (24-48) 30 % (24-48) Monocytes (%) (Auto) 11 % (0-9) 11 % (0-9) Eosinophils (%) (Auto) 7 % (0-3) 9 % (0-3) Basophils (%) (Auto) 1 % (0-3) 1 % (0-3) Neutrophils # (Auto) 3.0 x10^3/uL (1.8-7.7) 2.3 x10^3/uL (1.8-7.7) Lymphocytes # (Auto) 1.5 x10^3/uL (1.0-4.8) 1.4 x10^3/uL (1.0-4.8) Monocytes # (Auto) 0.6 x10^3/uL (0.0-1.1) 0.5 x10^3/uL (0.0-1.1) Eosinophils # (Auto) 0.4 x10^3/uL (0.0-0.7) 0.4 x10^3/uL (0.0-0.7) Basophils # (Auto) 0.0 x10^3/uL (0.0-0.2) 0.0 x10^3/uL (0.0-0.2) Prothrombin Time 15.8 SEC (11.7-14.0) Prothromb Time International Ratio 1.3 (0.8-1.1) Activated Partial Thromboplast Time 31 SEC (24-38) Sodium Level 139 mmol/L (136-145) 139 mmol/L (136-145) Potassium Level 4.2 mmol/L (3.5-5.1) 3.8 mmol/L (3.5-5.1) Chloride Level 106 mmol/L (98-107) 106 mmol/L (98-107) Carbon Dioxide Level 26 mmol/L (21-32) 28 mmol/L (21-32) Anion Gap 7 (6-14) 5 (6-14) Blood Urea Nitrogen 15 mg/dL (8-26) 15 mg/dL (8-26) Creatinine 0.9 mg/dL (0.7-1.3) 1.0 mg/dL (0.7-1.3) Estimated GFR (Cockcroft-Gault) 80.8 71.5 Glucose Level 93 mg/dL (70-99) 95 mg/dL (70-99) Calcium Level 8.2 mg/dL (8.5-10.1) 8.2 mg/dL (8.5-10.1) Troponin I Quantitative < 0.017 ng/mL (0.000-0.055) Coronavirus (PCR) Not detected (Not Detected) SARS-CoV-2 Antigen (Rapid) Negative (NEGATIVE) Triglycerides Level 41 mg/dL (0-150) Cholesterol Level 94 mg/dL (0-200) LDL Cholesterol, Calculated 53 mg/dL (0-100) VLDL Cholesterol, Calculated 8 mg/dL (0-40) Non-HDL Cholesterol Calculated 61 mg/dL (0-129) HDL Cholesterol 33 mg/dL (40-60) Cholesterol/HDL Ratio 2.8 Medications Current Medications Iohexol (Omnipaque 350 Mg/ml) 75 ml 1X ONCE IV Last administered on 07/23/20at 08:57; Start 07/23/20 at 09:00; Stop 07/23/20 at 09:01; Status DC Info (CONTRAST GIVEN -- Rx MONITORING) 1 each PRN DAILY PRN MC SEE COMMENTS; Start 07/23/20 at 09:00; Stop 07/24/20 at 17:56; Status DC Acetaminophen (Tylenol) 650 mg PRN Q6HRS PRN PO TEMP > 100.3'F Last administered on 07/24/20at 20:16; Start 07/23/20 at 10:00 Aspirin (Ecotrin) 325 mg DAILYWBKFT PO ; Start 07/24/20 at 08:00 Aspirin (Aspirin Rectal Supp) 300 mg PRN DAILY PRN MS IF UNABLE TO TAKE PO; Start 07/23/20 at 10:00 Clonidine HCl (Catapres) 0.3 mg Q8HRS PO ; Start 07/23/20 at 14:00; Stop 07/23/20 at 12:00; Status DC Labetalol HCl (Normodyne Iv Push) 10 mg PRN Q10MIN PRN IVP ELEVATED BP, SEE COMMENTS Last administered on 07/23/20at 12:11; Start 07/23/20 at 12:00 Clonidine HCl (Catapres) 0.3 mg PRN Q8HRS PRN PO HTN Last administered on 07/23/20at 21:00; Start 07/23/20 at 12:00 Clopidogrel Bisulfate (Plavix) 75 mg DAILYWBKFT PO Last administered on 07/23/20at 14:24; Start 07/23/20 at 14:15 Cefazolin Sodium/ Dextrose 50 ml @ 100 mls/hr 1X PREOP PRN IV PRIOR TO PROCEDURE Last administered on 07/24/20at 12:21; Start 07/24/20 at 06:00; Stop 07/24/20 at 18:00; Status DC Fentanyl Citrate (Fentanyl 2ml Vial) 25 mcg PRN Q5MIN PRN IVP MILD PAIN 1-3; Start 07/24/20 at 06:00; Stop 07/25/20 at 05:59; Status DC Fentanyl Citrate (Fentanyl 2ml Vial) 50 mcg PRN Q5MIN PRN IVP MODERATE PAIN 4- 6; Start 07/24/20 at 06:00; Stop 07/25/20 at 05:59; Status DC Morphine Sulfate (Morphine Sulfate) 1 mg PRN Q10MIN PRN IVP SEVERE PAIN 7-10; Start 07/24/20 at 06:00; Stop 07/25/20 at 05:59; Status DC Ringer's Solution 1,000 ml @ 30 mls/hr Q24H IV Last administered on 07/24/20at 11:40; Start 07/24/20 at 06:00; Stop 07/24/20 at 17:59; Status DC Hydromorphone HCl (Dilaudid) 0.5 mg PRN Q10MIN PRN IVP SEVERE PAIN 7-10, 2nd CHOICE; Start 07/24/20 at 06:00; Stop 07/25/20 at 05:59; Status DC Prochlorperazine Edisylate (Compazine) 5 mg PACU PRN PRN IVP NAUSEA, MRX1; Start 07/24/20 at 06:00; Stop 07/25/20 at 05:59; Status DC Losartan Potassium (Cozaar) 50 mg DAILY PO ; Start 07/24/20 at 09:00; Stop 07/23/20 at 16:24; Status DC Propranolol HCl (Inderal) 10 mg DAILY PO ; Start 07/24/20 at 09:00; Stop 07/23/20 at 16:24; Status DC Simvastatin (Zocor) 40 mg QHS PO Last administered on 07/24/20at 20:53; Start 07/23/20 at 21:00 Heparin Sodium (Porcine) 5000 unit/Ringer's Solution 505 ml @ 505 mls/hr 1X ONCE IRR Last administered on 07/24/20at 12:42; Start 07/24/20 at 06:00; Stop 07/24/20 at 06:59; Status DC Cefazolin Sodium 1 gm/Sodium Chloride 500 ml @ 500 mls/hr 1X ONCE IRR Last administered on 07/24/20at 12:42; Start 07/24/20 at 06:00; Stop 07/24/20 at 06:59; Status DC Losartan Potassium (Cozaar) 50 mg DAILY PO Last administered on 07/24/20at 09:38; Start 07/23/20 at 16:30 Propranolol HCl (Inderal) 10 mg DAILY PO Last administered on 07/24/20at 09:37; Start 07/23/20 at 16:30 Cellulose (Surgicel Fibrillar 1x2) 1 each STK-MED ONCE .ROUTE Last administered on 07/24/20at 13:38; Start 07/24/20 at 11:02; Stop 07/24/20 at 11:02; Status DC Lidocaine HCl (Xylocaine 1% Pf 30ml Vial) 30 ml STK-MED ONCE .ROUTE Last administered on 07/24/20at 12:42; Start 07/24/20 at 11:02; Stop 07/24/20 at 11:02; Status DC Midazolam HCl (Versed) 2 mg STK-MED ONCE .ROUTE ; Start 07/24/20 at 12:00; Stop 07/24/20 at 12:00; Status DC Ropivacaine (Naropin 0.5%) 20 ml STK-MED ONCE .ROUTE ; Start 07/24/20 at 12:04; Stop 07/24/20 at 12:04; Status DC Lidocaine HCl (Xylocaine-Mpf 1% 2ml Vial) 2 ml STK-MED ONCE .ROUTE ; Start 07/24/20 at 12:05; Stop 07/24/20 at 12:06; Status DC Glycopyrrolate (Robinul) 1 mg STK-MED ONCE .ROUTE ; Start 07/24/20 at 13:04; Stop 07/24/20 at 13:04; Status DC Protamine Sulfate (Protamine) 50 mg STK-MED ONCE IV ; Start 07/24/20 at 13:39; Stop 07/24/20 at 13:39; Status DC Hydralazine HCl (Apresoline Inj) 20 mg STK-MED ONCE .ROUTE ; Start 07/24/20 at 13:46; Stop 07/24/20 at 13:46; Status DC Cefazolin Sodium/ Dextrose 50 ml @ 100 mls/hr Q8H IV Last administered on 07/25/20at 04:41; Start 07/24/20 at 20:30; Stop 07/25/20 at 04:59; Status DC Hydralazine HCl (Apresoline Inj) 10 mg PRN Q1HR PRN IVP ELEVATED BP, SEE COMMENTS Last administered on 07/25/20at 04:30; Start 07/24/20 at 14:30 Morphine Sulfate (Morphine Sulfate) 2 mg PRN Q2HR PRN IV PAIN Last administered on 07/25/20at 02:27; Start 07/24/20 at 14:30 Acetaminophen/ Hydrocodone Bitart (Lortab 5/325) 1 tab PRN Q4HRS PRN PO PAIN; Start 07/24/20 at 14:30; Status Cancel Iohexol (Omnipaque 350 Mg/ml) 75 ml 1X ONCE IV Last administered on 07/24/20at 15:40; Start 07/24/20 at 15:45; Stop 07/24/20 at 15:46; Status DC Info (CONTRAST GIVEN -- Rx MONITORING) 1 each PRN DAILY PRN MC SEE COMMENTS; Start 07/24/20 at 15:45; Stop 07/26/20 at 15:44 Active Scripts Active Reported Calcium 500 + D Tablet (Calcium Carbonate/Vitamin D3) 1 Each Tablet 1 Tab PO DAILY 30 Days Aspirin Ec (Aspirin) 81 Mg Tablet.dr 1 Tab PO DAILY Losartan Potassium 50 Mg Tablet 1 Tab PO DAILY Furosemide 40 Mg Tablet 1 Tab PO DAILY Allopurinol 300 Mg Tablet 1 Tab PO DAILY Klor-Con M20 (Potassium Chloride) 20 Meq Tab.er.prt 1 Tab PO DAILY Simvastatin 40 Mg Tablet 1 Tab PO QHS Propranolol Hcl 10 Mg Tablet 10 Mg PO DAILY Vitals/I & O Vital Sign - Last 24 Hours 07/24/20 07/24/20 07/24/20 07/24/20 09:37 09:38 11:00 11:43 Temp 98.0 97.5 98.0 97.5 Pulse 62 57 58 62 Resp 18 15 B/P (MAP) 155/67 155/67 146/99 (115) 194/85 Pulse Ox 93 95 O2 Delivery Room Air Room Air 07/24/20 07/24/20 07/24/20 07/24/20 14:11 14:11 14:26 14:41 Temp 98.2 98.2 Pulse 68 66 62 Resp 14 12 12 B/P (MAP) 120/60 131/61 138/64 Pulse Ox 96 95 94 O2 Delivery Mask Simple Mask Room Air Room Air O2 Flow Rate 13 13 07/24/20 07/24/20 07/24/20 07/24/20 14:50 14:56 15:06 15:37 Temp 98.1 98.1 Pulse 77 76 78 80 Resp 25 19 28 15 B/P (MAP) 160/72 147/77 134/72 175/83 182/70 174/68 Pulse Ox 92 92 95 93 O2 Delivery Room Air Room Air Room Air Room Air 07/24/20 07/24/20 07/24/20 07/24/20 16:00 16:00 16:09 16:11 Temp 97.6 97.6 Pulse 76 76 Resp 16 16 B/P (MAP) 194/66 (108) 183/63 Pulse Ox 92 92 O2 Delivery Room Air Room Air Room Air 07/24/20 07/24/20 07/24/20 07/24/20 16:15 16:30 16:45 17:00 Pulse 76 74 64 66 Resp 16 18 18 16 B/P (MAP) 186/68 (107) 166/54 (91) 146/46 (79) 150/48 (82) Pulse Ox 93 94 92 90 O2 Delivery Room Air Room Air Room Air Room Air 07/24/20 07/24/20 07/24/20 07/24/20 17:05 17:30 19:00 20:00 Temp 97.9 97.9 Pulse 70 76 76 Resp 14 16 18 15 B/P (MAP) 150/50 (83) 166/54 (91) 154/48 (83) Pulse Ox 90 88 91 93 O2 Delivery Room Air Room Air Nasal Cannula Nasal Cannula O2 Flow Rate 2.0 2.0 07/24/20 07/24/20 07/24/20 07/24/20 20:00 20:27 21:00 22:00 Pulse 90 82 78 Resp 17 13 B/P (MAP) 170/57 132/42 (72) 114/36 (62) Pulse Ox 92 92 O2 Delivery Nasal Cannula Nasal Cannula Nasal Cannula O2 Flow Rate 2.0 2.0 2.0 07/24/20 07/24/20 07/25/20 07/25/20 22:00 23:00 00:00 00:00 Temp 98.3 98.3 Pulse 78 78 76 Resp 12 12 11 B/P (MAP) 116/42 (66) 116/42 (66) 112/40 (64) Pulse Ox 93 92 95 O2 Delivery Nasal Cannula Nasal Cannula Nasal Cannula Nasal Cannula O2 Flow Rate 2.0 2.0 2.0 2.0 07/25/20 07/25/20 07/25/20 07/25/20 01:00 02:00 02:27 03:00 Pulse 98 104 92 Resp 14 20 24 14 B/P (MAP) 166/54 (91) 164/52 (89) 118/38 (64) Pulse Ox 95 95 95 93 O2 Delivery Nasal Cannula Nasal Cannula Nasal Cannula Nasal Cannula O2 Flow Rate 2.0 2.0 2.0 2.0 07/25/20 07/25/20 07/25/20 07/25/20 04:00 04:00 04:30 05:00 Temp 98.0 98.0 Pulse 82 88 78 Resp 13 14 B/P (MAP) 130/38 (68) 177/58 154/46 (82) Pulse Ox 93 95 O2 Delivery Nasal Cannula Nasal Cannula Nasal Cannula O2 Flow Rate 2.0 2.0 2.0 07/25/20 07/25/20 05:59 07:00 Pulse 85 102 Resp 10 13 B/P (MAP) 150/44 (79) 132/43 (72) Pulse Ox 93 96 O2 Delivery Nasal Cannula Nasal Cannula O2 Flow Rate 2.0 2.0 Intake and Output 07/24/20 07/24/20 07/25/20 15:00 23:00 07:00 Intake Total 950 ml 230 ml 80 ml Output Total 30 ml 1215 ml 680 ml Balance 920 ml -985 ml -600 ml Justicifation of Admission Dx: Justifications for Admission: Justification of Admission Dx: Yes GAIL VANG MD Jul 25, 2020 08:45
--- NOTE | 2020-07-25 08:53 | PDOC ---
PROGRESS NOTES Date of Service DATE: 07/25/20 TIME: 08:47 Assessment Problems Medical Problems: (1) Carotid stenosis Status: Acute (2) Carotid stenosis, right Status: Acute (3) TIA (transient ischemic attack) Status: Acute After the endarterectomy he developed aphasia again. I discussed the case with Ms. Fischer. I recommended CT angiogram. He already had a negative head CT. He was not a candidate for alteplase because of the recent surgery and the fact that this was an isolated aphasia, nor was he a candidate for clot retrieval given the clinically small size of any stroke. He is doing better today. He presented with a similar transient ischemic attack referable to the left hemisphere with ipsilateral stenosis so we did need the endarterectomy. I am still keeping in mind the possibility of complicated migraines, hypertensive encephalopathy, stress reaction, onset of frontal dementia with aphasia. History of right carotid endarterectomy Very favorable lipid profile Plan Repeat brain MRI Okay to transfer to floor Aspirin and clopidogrel Statin, does not need high-dose Speech therapy communication and swallowing Rehabilitation modalities Subjective Complains he cannot speak Objective Vital Signs Date Time Temp Pulse Resp B/P (MAP) Pulse Ox O2 Delivery O2 Flow Rate FiO2 07/25/20 07:00 102 13 132/43 (72) 96 Nasal Cannula 2.0 07/25/20 04:00 98.0 98.0 Intake and Output 07/25/20 07:00 Intake Total 1260 ml Output Total 1925 ml Balance -665 ml Intake Oral 210 ml IV Total 1050 ml Output Urine Total 1850 ml Drainage Total 45 ml Estimated Blood Loss 30 ml PHYSICAL EXAM Alert. Oriented to time, place and person. He does have some trouble with complex commands, says that he cannot get any words out but he actually speaks fluently, I detect a component of anxiety, but there may be some mild aphasia as well PERRL. EOMI. CN: no focal findings. Muscle tone: normal. Muscle strength: 5/5 DTR: 2+ Plantar reflex: Flexor Gait: not examined in bed. Sensory exam: no abnormal findings. No cerebellar signs elicited. Review of Relevant I have reviewed the following items radha (where applicable) has been applied. Labs Laboratory Tests Test 07/23/20 09:02 07/23/20 14:50 07/24/20 04:40 White Blood Count 5.5 x10^3/uL (4.0-11.0) 4.6 x10^3/uL (4.0-11.0) Red Blood Count 4.53 x10^6/uL (4.30-5.70) 4.05 x10^6/uL (4.30-5.70) Hemoglobin 15.4 g/dL (13.0-17.5) 13.9 g/dL (13.0-17.5) Hematocrit 46.0 % (39.0-53.0) 41.3 % (39.0-53.0) Mean Corpuscular Volume 102 fL (79-100) 102 fL (79-100) Mean Corpuscular Hemoglobin 34 pg (25-35) 34 pg (25-35) Mean Corpuscular Hemoglobin Concent 34 g/dL (31-37) 34 g/dL (31-37) Red Cell Distribution Width 14.9 % (11.5-14.5) 15.0 % (11.5-14.5) Platelet Count 182 x10^3/uL (140-400) 154 x10^3/uL (140-400) Neutrophils (%) (Auto) 55 % (31-73) 50 % (31-73) Lymphocytes (%) (Auto) 27 % (24-48) 30 % (24-48) Monocytes (%) (Auto) 11 % (0-9) 11 % (0-9) Eosinophils (%) (Auto) 7 % (0-3) 9 % (0-3) Basophils (%) (Auto) 1 % (0-3) 1 % (0-3) Neutrophils # (Auto) 3.0 x10^3/uL (1.8-7.7) 2.3 x10^3/uL (1.8-7.7) Lymphocytes # (Auto) 1.5 x10^3/uL (1.0-4.8) 1.4 x10^3/uL (1.0-4.8) Monocytes # (Auto) 0.6 x10^3/uL (0.0-1.1) 0.5 x10^3/uL (0.0-1.1) Eosinophils # (Auto) 0.4 x10^3/uL (0.0-0.7) 0.4 x10^3/uL (0.0-0.7) Basophils # (Auto) 0.0 x10^3/uL (0.0-0.2) 0.0 x10^3/uL (0.0-0.2) Prothrombin Time 15.8 SEC (11.7-14.0) Prothromb Time International Ratio 1.3 (0.8-1.1) Activated Partial Thromboplast Time 31 SEC (24-38) Sodium Level 139 mmol/L (136-145) 139 mmol/L (136-145) Potassium Level 4.2 mmol/L (3.5-5.1) 3.8 mmol/L (3.5-5.1) Chloride Level 106 mmol/L (98-107) 106 mmol/L (98-107) Carbon Dioxide Level 26 mmol/L (21-32) 28 mmol/L (21-32) Anion Gap 7 (6-14) 5 (6-14) Blood Urea Nitrogen 15 mg/dL (8-26) 15 mg/dL (8-26) Creatinine 0.9 mg/dL (0.7-1.3) 1.0 mg/dL (0.7-1.3) Estimated GFR (Cockcroft-Gault) 80.8 71.5 Glucose Level 93 mg/dL (70-99) 95 mg/dL (70-99) Calcium Level 8.2 mg/dL (8.5-10.1) 8.2 mg/dL (8.5-10.1) Troponin I Quantitative < 0.017 ng/mL (0.000-0.055) Coronavirus (PCR) Not detected (Not Detected) SARS-CoV-2 Antigen (Rapid) Negative (NEGATIVE) Triglycerides Level 41 mg/dL (0-150) Cholesterol Level 94 mg/dL (0-200) LDL Cholesterol, Calculated 53 mg/dL (0-100) VLDL Cholesterol, Calculated 8 mg/dL (0-40) Non-HDL Cholesterol Calculated 61 mg/dL (0-129) HDL Cholesterol 33 mg/dL (40-60) Cholesterol/HDL Ratio 2.8 Medications Current Medications Iohexol (Omnipaque 350 Mg/ml) 75 ml 1X ONCE IV Last administered on 07/23/20at 08:57; Start 07/23/20 at 09:00; Stop 07/23/20 at 09:01; Status DC Info (CONTRAST GIVEN -- Rx MONITORING) 1 each PRN DAILY PRN MC SEE COMMENTS; Start 07/23/20 at 09:00; Stop 07/24/20 at 17:56; Status DC Acetaminophen (Tylenol) 650 mg PRN Q6HRS PRN PO TEMP > 100.3'F Last administered on 07/24/20at 20:16; Start 07/23/20 at 10:00 Aspirin (Ecotrin) 325 mg DAILYWBKFT PO ; Start 07/24/20 at 08:00 Aspirin (Aspirin Rectal Supp) 300 mg PRN DAILY PRN [place] IF UNABLE TO TAKE PO; Start 07/23/20 at 10:00 Clonidine HCl (Catapres) 0.3 mg Q8HRS PO ; Start 07/23/20 at 14:00; Stop 07/23/20 at 12:00; Status DC Labetalol HCl (Normodyne Iv Push) 10 mg PRN Q10MIN PRN IVP ELEVATED BP, SEE COMMENTS Last administered on 07/23/20at 12:11; Start 07/23/20 at 12:00 Clonidine HCl (Catapres) 0.3 mg PRN Q8HRS PRN PO HTN Last administered on 07/23/20at 21:00; Start 07/23/20 at 12:00 Clopidogrel Bisulfate (Plavix) 75 mg DAILYWBKFT PO Last administered on 07/23/20at 14:24; Start 07/23/20 at 14:15 Cefazolin Sodium/ Dextrose 50 ml @ 100 mls/hr 1X PREOP PRN IV PRIOR TO PROCEDURE Last administered on 07/24/20at 12:21; Start 07/24/20 at 06:00; Stop 07/24/20 at 18:00; Status DC Fentanyl Citrate (Fentanyl 2ml Vial) 25 mcg PRN Q5MIN PRN IVP MILD PAIN 1-3; Start 07/24/20 at 06:00; Stop 07/25/20 at 05:59; Status DC Fentanyl Citrate (Fentanyl 2ml Vial) 50 mcg PRN Q5MIN PRN IVP MODERATE PAIN 4- 6; Start 07/24/20 at 06:00; Stop 07/25/20 at 05:59; Status DC Morphine Sulfate (Morphine Sulfate) 1 mg PRN Q10MIN PRN IVP SEVERE PAIN 7-10; Start 07/24/20 at 06:00; Stop 07/25/20 at 05:59; Status DC Ringer's Solution 1,000 ml @ 30 mls/hr Q24H IV Last administered on 07/24/20at 11:40; Start 07/24/20 at 06:00; Stop 07/24/20 at 17:59; Status DC Hydromorphone HCl (Dilaudid) 0.5 mg PRN Q10MIN PRN IVP SEVERE PAIN 7-10, 2nd CHOICE; Start 07/24/20 at 06:00; Stop 07/25/20 at 05:59; Status DC Prochlorperazine Edisylate (Compazine) 5 mg PACU PRN PRN IVP NAUSEA, MRX1; Start 07/24/20 at 06:00; Stop 07/25/20 at 05:59; Status DC Losartan Potassium (Cozaar) 50 mg DAILY PO ; Start 07/24/20 at 09:00; Stop 07/23/20 at 16:24; Status DC Propranolol HCl (Inderal) 10 mg DAILY PO ; Start 07/24/20 at 09:00; Stop 07/23/20 at 16:24; Status DC Simvastatin (Zocor) 40 mg QHS PO Last administered on 07/24/20at 20:53; Start 07/23/20 at 21:00 Heparin Sodium (Porcine) 5000 unit/Ringer's Solution 505 ml @ 505 mls/hr 1X ONCE IRR Last administered on 07/24/20at 12:42; Start 07/24/20 at 06:00; Stop 07/24/20 at 06:59; Status DC Cefazolin Sodium 1 gm/Sodium Chloride 500 ml @ 500 mls/hr 1X ONCE IRR Last administered on 07/24/20at 12:42; Start 07/24/20 at 06:00; Stop 07/24/20 at 06:59; Status DC Losartan Potassium (Cozaar) 50 mg DAILY PO Last administered on 07/24/20at 09:38; Start 07/23/20 at 16:30 Propranolol HCl (Inderal) 10 mg DAILY PO Last administered on 07/24/20at 09:37; Start 07/23/20 at 16:30 Cellulose (Surgicel Fibrillar 1x2) 1 each STK-MED ONCE .ROUTE Last administered on 07/24/20at 13:38; Start 07/24/20 at 11:02; Stop 07/24/20 at 11:02; Status DC Lidocaine HCl (Xylocaine 1% Pf 30ml Vial) 30 ml STK-MED ONCE .ROUTE Last administered on 07/24/20at 12:42; Start 07/24/20 at 11:02; Stop 07/24/20 at 11:02; Status DC Midazolam HCl (Versed) 2 mg STK-MED ONCE .ROUTE ; Start 07/24/20 at 12:00; Stop 07/24/20 at 12:00; Status DC Ropivacaine (Naropin 0.5%) 20 ml STK-MED ONCE .ROUTE ; Start 07/24/20 at 12:04; Stop 07/24/20 at 12:04; Status DC Lidocaine HCl (Xylocaine-Mpf 1% 2ml Vial) 2 ml STK-MED ONCE .ROUTE ; Start 07/24/20 at 12:05; Stop 07/24/20 at 12:06; Status DC Glycopyrrolate (Robinul) 1 mg STK-MED ONCE .ROUTE ; Start 07/24/20 at 13:04; Stop 07/24/20 at 13:04; Status DC Protamine Sulfate (Protamine) 50 mg STK-MED ONCE IV ; Start 07/24/20 at 13:39; Stop 07/24/20 at 13:39; Status DC Hydralazine HCl (Apresoline Inj) 20 mg STK-MED ONCE .ROUTE ; Start 07/24/20 at 13:46; Stop 07/24/20 at 13:46; Status DC Cefazolin Sodium/ Dextrose 50 ml @ 100 mls/hr Q8H IV Last administered on 07/25/20at 04:41; Start 07/24/20 at 20:30; Stop 07/25/20 at 04:59; Status DC Hydralazine HCl (Apresoline Inj) 10 mg PRN Q1HR PRN IVP ELEVATED BP, SEE COMMENTS Last administered on 07/25/20at 04:30; Start 07/24/20 at 14:30 Morphine Sulfate (Morphine Sulfate) 2 mg PRN Q2HR PRN IV PAIN Last administered on 07/25/20at 02:27; Start 07/24/20 at 14:30 Acetaminophen/ Hydrocodone Bitart (Lortab 5/325) 1 tab PRN Q4HRS PRN PO PAIN; Start 07/24/20 at 14:30; Status Cancel Iohexol (Omnipaque 350 Mg/ml) 75 ml 1X ONCE IV Last administered on 07/24/20at 15:40; Start 07/24/20 at 15:45; Stop 07/24/20 at 15:46; Status DC Info (CONTRAST GIVEN -- Rx MONITORING) 1 each PRN DAILY PRN MC SEE COMMENTS; Start 07/24/20 at 15:45; Stop 07/26/20 at 15:44 Active Scripts Active Reported Calcium 500 + D Tablet (Calcium Carbonate/Vitamin D3) 1 Each Tablet 1 Tab PO DAILY 30 Days Aspirin Ec (Aspirin) 81 Mg Tablet.dr 1 Tab PO DAILY Losartan Potassium 50 Mg Tablet 1 Tab PO DAILY Furosemide 40 Mg Tablet 1 Tab PO DAILY Allopurinol 300 Mg Tablet 1 Tab PO DAILY Klor-Con M20 (Potassium Chloride) 20 Meq Tab.er.prt 1 Tab PO DAILY Simvastatin 40 Mg Tablet 1 Tab PO QHS Propranolol Hcl 10 Mg Tablet 10 Mg PO DAILY Vitals/I & O Vital Sign - Last 24 Hours 07/24/20 07/24/20 07/24/20 07/24/20 09:37 09:38 11:00 11:43 Temp 98.0 97.5 98.0 97.5 Pulse 62 57 58 62 Resp 18 15 B/P (MAP) 155/67 155/67 146/99 (115) 194/85 Pulse Ox 93 95 O2 Delivery Room Air Room Air 07/24/20 07/24/20 07/24/20 07/24/20 14:11 14:11 14:26 14:41 Temp 98.2 98.2 Pulse 68 66 62 Resp 14 12 12 B/P (MAP) 120/60 131/61 138/64 Pulse Ox 96 95 94 O2 Delivery Mask Simple Mask Room Air Room Air O2 Flow Rate 13 13 07/24/20 07/24/20 07/24/20 07/24/20 14:50 14:56 15:06 15:37 Temp 98.1 98.1 Pulse 77 76 78 80 Resp 28 15 B/P (MAP) 160/72 147/77 134/72 175/83 182/70 174/68 Pulse Ox 92 92 95 93 O2 Delivery Room Air Room Air Room Air Room Air 07/24/20 07/24/20 07/24/20 07/24/20 16:00 16:00 16:09 16:11 Temp 97.6 97.6 Pulse 76 76 Resp 16 16 B/P (MAP) 194/66 (108) 183/63 Pulse Ox 92 92 O2 Delivery Room Air Room Air Room Air 07/24/20 07/24/20 07/24/20 07/24/20 16:15 16:30 16:45 17:00 Pulse 76 74 64 66 Resp 16 18 18 16 B/P (MAP) 186/68 (107) 166/54 (91) 146/46 (79) 150/48 (82) Pulse Ox 93 94 92 90 O2 Delivery Room Air Room Air Room Air Room Air 07/24/20 07/24/20 07/24/20 07/24/20 17:05 17:30 19:00 20:00 Temp 97.9 97.9 Pulse 70 76 76 Resp 14 16 18 15 B/P (MAP) 150/50 (83) 166/54 (91) 154/48 (83) Pulse Ox 90 88 91 93 O2 Delivery Room Air Room Air Nasal Cannula Nasal Cannula O2 Flow Rate 2.0 2.0 07/24/20 07/24/20 07/24/20 07/24/20 20:00 20:27 21:00 22:00 Pulse 90 82 78 Resp 17 13 B/P (MAP) 170/57 132/42 (72) 114/36 (62) Pulse Ox 92 92 O2 Delivery Nasal Cannula Nasal Cannula Nasal Cannula O2 Flow Rate 2.0 2.0 2.0 07/24/20 07/24/20 07/25/20 07/25/20 22:00 23:00 00:00 00:00 Temp 98.3 98.3 Pulse 78 78 76 Resp 12 12 11 B/P (MAP) 116/42 (66) 116/42 (66) 112/40 (64) Pulse Ox 93 92 95 O2 Delivery Nasal Cannula Nasal Cannula Nasal Cannula Nasal Cannula O2 Flow Rate 2.0 2.0 2.0 2.0 07/25/20 07/25/20 07/25/20 07/25/20 01:00 02:00 02:27 03:00 Pulse 98 104 92 Resp 14 20 24 14 B/P (MAP) 166/54 (91) 164/52 (89) 118/38 (64) Pulse Ox 95 95 95 93 O2 Delivery Nasal Cannula Nasal Cannula Nasal Cannula Nasal Cannula O2 Flow Rate 2.0 2.0 2.0 2.0 07/25/20 07/25/20 07/25/20 07/25/20 04:00 04:00 04:30 05:00 Temp 98.0 98.0 Pulse 82 88 78 Resp 13 14 B/P (MAP) 130/38 (68) 177/58 154/46 (82) Pulse Ox 93 95 O2 Delivery Nasal Cannula Nasal Cannula Nasal Cannula O2 Flow Rate 2.0 2.0 2.0 07/25/20 07/25/20 05:59 07:00 Pulse 85 102 Resp 10 13 B/P (MAP) 150/44 (79) 132/43 (72) Pulse Ox 93 96 O2 Delivery Nasal Cannula Nasal Cannula O2 Flow Rate 2.0 2.0 Intake and Output 07/24/20 07/24/20 07/25/20 15:00 23:00 07:00 Intake Total 950 ml 230 ml 80 ml Output Total 30 ml 1215 ml 680 ml Balance 920 ml -985 ml -600 ml Images CTA of the head and neck with contrast 07/24/2020 Clinical history: Expressive aphasia post left carotid endarterectomy. Technique: After the intravenous administration of 75 cc of Omnipaque 350, contiguous, 0.625 mm axial sections were obtained through the upper chest, neck and head. Multiplanar 3-D MIP and volume rendered 3-D reconstructed images were obtained. One or more of the following individualized dose reduction techniques were utilized for this study: 1. Automated exposure control. 2. Adjustment of the mA and/or kV according to patient size. 3. Use of iterative reconstruction technique. Findings: Comparison is made to patient's CT scan of the head performed earlier today. Additional comparison is made to patient's CTA of the head and neck dated 07/23/2020. Scattered atherosclerotic plaque formation seen involving the thoracic aortic arch and its branches. The origins of the brachiocephalic, left common carotid and left subclavian arteries from the thoracic aortic arch are patent. The origin of the right common carotid artery and both vertebral arteries are pa tent. The patient is post bilateral carotid endarterectomy. The left carotid endarterectomy has occurred since yesterday study. Mild to moderate atheromatous/atherosclerotic plaque formation is seen involving the carotid bifurcations and proximal internal carotid arteries. No hemodynamically significant stenosis or area of occlusion is seen. No carotid or vertebral arterial dissection is noted. The high-grade stenosis seen on the previous examination involving the left internal carotid artery has resolved. Extensive subcutaneous emphysema is seen within soft tissues of the left neck. A surgical drain is noted in place. No hematoma or abnormal fluid collection is seen. The vertebral arteries are codominant. Both vertebral arteries demonstrate normal antegrade flow. No area stenosis or occlusion is seen. Intracranially, scattered atherosclerotic plaque formation is seen involving the cavernous portions of both internal carotid arteries. No hemodynamically significant stenosis or area of occlusion is seen. The basilar artery is patent. The anterior, middle and posterior cerebral arteries and their branches are within normal limits. No area of stenosis or occlusion is seen. No intracranial aneurysm is noted. The major dural venous sinuses are patent. No area of abnormal contrast enhancement is seen. An area of scarring is again seen involving the right upper lobe. The osseous structures are unchanged. Impression: The patient is post left carotid endarterectomy since the previous examination. The stenosis involving the proximal left internal carotid artery has resolved. No area of stenosis or occlusion is seen. CT HEAD/BRAIN WO (CT HEAD WITHOUT IV CONTRAST), 07/24 Acute Change: No evidence of an acute infarct or other acute parenchymal process. Hemorrhage: No evidence of acute intracranial hemorrhage. Mass Lesion/Mass Effect: No evidence of intracranial mass or extraaxial fluid collection. No significant mass effect. Chronic Change: Scattered patchy foci of hypoattenuation in the supratentorial white matter, nonspecific but likely represents mild microvascular ischemia. Atherosclerotic calcification of the anterior and posterior circulation. Parenchyma: Mild to moderate generalized volume loss. Parenchyma otherwise within normal limits for age. Ventricles: Ventricular enlargement concordant with degree of parenchymal volume loss. Paranasal Sinuses and Skull Base: Visualized paranasal sinuses clear. Visualized skull base and soft tissues unremarkable. IMPRESSION: No evidence of acute intracranial abnormality or significant interval change. Echocardiogram: LEFT VENTRICLE The left ventricle is normal size. There is normal left ventricular wall thickness. The left ventricular systolic function is normal and the ejection fraction is within normal range. The Ejection Fraction is 55-60%. There is normal LV segmental wall motion. Transmitral Doppler flow pattern is Grade I-abnormal relaxation pattern. RIGHT VENTRICLE The right ventricle is normal size. The right ventricular systolic function is normal. ATRIA The left atrium size is normal. The right atrium size is normal. The interatrial septum is intact with no evidence for an atrial septal defect or patent foramen ovale as noted on 2-D or Doppler imaging. AORTIC VALVE The aortic valve is calcified but opens well. Doppler and Color Flow revealed no significant aortic regurgitation. There is no significant aortic valvular st enosis. MITRAL VALVE The mitral valve is calcified but opens well. There is no evidence of mitral valve prolapse. There is no mitral valve stenosis. Doppler and Color Flow revealed no mitral valve regurgitation noted. TRICUSPID VALVE The tricuspid valve is normal in structure and function. Doppler and Color Flow revealed trace tricuspid regurgitation. The PA pressure was estimated at 41 mmHg. There is no tricuspid valve stenosis. PULMONIC VALVE The pulmonic valve is not well visualized. Doppler and Color Flow revealed no pulmonic valvular regurgitation. There is no pulmonic valvular stenosis. GREAT VESSELS The aortic root is normal in size. The ascending aorta is not well seen. The IVC is normal in size and collapses >50% with inspiration. PERICARDIAL EFFUSION There is no evidence of significant pericardial effusion. Critical Notification Critical Value: No <Conclusion> The left ventricular systolic function is normal and the ejection fraction is within normal range. The Ejection Fraction is 55-60%. There is normal LV segmental wall motion. Doppler and Color Flow revealed trace tricuspid regurgitation. The PA pressure was estimated at 41 mmHg. Justicifation of Admission Dx: Justifications for Admission: Justification of Admission Dx: Yes MUNIR CHAN MD Jul 25, 2020 08:53
[2020-07-25] MEDS: PROPRANOLOL 10 MG TABLET. PO SCH (09:00)
[2020-07-25] MEDS: LOSARTAN POTASSIUM 50 MG TABLET. PO SCH (09:00)
--- NOTE | 2020-07-25 16:07 | NUR ---
SS following up with discharge planning. SS reviewed pt chart and discussed with pt RN. Pt is currently requiring oxygen at two liters nasal canula. COVID19 negative. PT/OT recommended home independent. Pt NPO. ST following. SS will continue to follow for discharge planning.
--- NOTE | 2020-07-25 17:12 | PDOC ---
PROGRESS NOTES Date of Service DATE: 07/25/20 TIME: 17:08 Subjective Subjective Pt seen this afternoon -- he was about to enter MRI machine for today's study. RN reported to me patient had another episode of expressive aphasia and difficulty understanding commands this morning, then it resolved. On my exam he seems to converse with me normally, he follows all commands well neck supple no hematoma BIANKA minimal output face symmetric tongue midline, speech clear but some difficulty with word choice follows all commands well strong milieu coordinator bilaterally moves feet easily I reviewed post-op CTA neck -- don't really see anything I would repeat surgery for. Will ask Dr Pretty to review again await results of MRI -- continue DAPT and statin OK to remove BIANKA Objective Objective Vital Signs Date Time Temp Pulse Resp B/P (MAP) Pulse Ox O2 Delivery O2 Flow Rate FiO2 07/25/20 10:00 98.3 92 16 141/47 (78) 94 Nasal Cannula 3.0 98.3 Intake and Output 07/25/20 07:00 Intake Total 1260 ml Output Total 1925 ml Balance -665 ml Intake Oral 210 ml IV Total 1050 ml Output Urine Total 1850 ml Drainage Total 45 ml Estimated Blood Loss 30 ml Assessment Assessment Problems Medical Problems: (1) Carotid stenosis Status: Acute (2) Carotid stenosis, right Status: Acute (3) TIA (transient ischemic attack) Status: Acute Comment Review of Relevant I have reviewed the following items radha (where applicable) has been applied. Labs Laboratory Tests Test 07/24/20 04:40 White Blood Count 4.6 x10^3/uL (4.0-11.0) Red Blood Count 4.05 x10^6/uL (4.30-5.70) Hemoglobin 13.9 g/dL (13.0-17.5) Hematocrit 41.3 % (39.0-53.0) Mean Corpuscular Volume 102 fL (79-100) Mean Corpuscular Hemoglobin 34 pg (25-35) Mean Corpuscular Hemoglobin Concent 34 g/dL (31-37) Red Cell Distribution Width 15.0 % (11.5-14.5) Platelet Count 154 x10^3/uL (140-400) Neutrophils (%) (Auto) 50 % (31-73) Lymphocytes (%) (Auto) 30 % (24-48) Monocytes (%) (Auto) 11 % (0-9) Eosinophils (%) (Auto) 9 % (0-3) Basophils (%) (Auto) 1 % (0-3) Neutrophils # (Auto) 2.3 x10^3/uL (1.8-7.7) Lymphocytes # (Auto) 1.4 x10^3/uL (1.0-4.8) Monocytes # (Auto) 0.5 x10^3/uL (0.0-1.1) Eosinophils # (Auto) 0.4 x10^3/uL (0.0-0.7) Basophils # (Auto) 0.0 x10^3/uL (0.0-0.2) Sodium Level 139 mmol/L (136-145) Potassium Level 3.8 mmol/L (3.5-5.1) Chloride Level 106 mmol/L (98-107) Carbon Dioxide Level 28 mmol/L (21-32) Anion Gap 5 (6-14) Blood Urea Nitrogen 15 mg/dL (8-26) Creatinine 1.0 mg/dL (0.7-1.3) Estimated GFR (Cockcroft-Gault) 71.5 Glucose Level 95 mg/dL (70-99) Calcium Level 8.2 mg/dL (8.5-10.1) Triglycerides Level 41 mg/dL (0-150) Cholesterol Level 94 mg/dL (0-200) LDL Cholesterol, Calculated 53 mg/dL (0-100) VLDL Cholesterol, Calculated 8 mg/dL (0-40) Non-HDL Cholesterol Calculated 61 mg/dL (0-129) HDL Cholesterol 33 mg/dL (40-60) Cholesterol/HDL Ratio 2.8 Medications Current Medications Iohexol (Omnipaque 350 Mg/ml) 75 ml 1X ONCE IV Last administered on 07/23/20at 08:57; Start 07/23/20 at 09:00; Stop 07/23/20 at 09:01; Status DC Info (CONTRAST GIVEN -- Rx MONITORING) 1 each PRN DAILY PRN MC SEE COMMENTS; Start 07/23/20 at 09:00; Stop 07/24/20 at 17:56; Status DC Acetaminophen (Tylenol) 650 mg PRN Q6HRS PRN PO TEMP > 100.3'F Last administered on 07/24/20at 20:16; Start 07/23/20 at 10:00 Aspirin (Ecotrin) 325 mg DAILYWBKFT PO ; Start 07/24/20 at 08:00 Aspirin (Aspirin Rectal Supp) 300 mg PRN DAILY PRN AL IF UNABLE TO TAKE PO Last administered on 07/25/20at 12:48; Start 07/23/20 at 10:00 Clonidine HCl (Catapres) 0.3 mg Q8HRS PO ; Start 07/23/20 at 14:00; Stop 07/23/20 at 12:00; Status DC Labetalol HCl (Normodyne Iv Push) 10 mg PRN Q10MIN PRN IVP ELEVATED BP, SEE COMMENTS Last administered on 07/23/20at 12:11; Start 07/23/20 at 12:00 Clonidine HCl (Catapres) 0.3 mg PRN Q8HRS PRN PO HTN Last administered on 07/23/20at 21:00; Start 07/23/20 at 12:00 Clopidogrel Bisulfate (Plavix) 75 mg DAILYWBKFT PO Last administered on 07/23/20at 14:24; Start 07/23/20 at 14:15 Cefazolin Sodium/ Dextrose 50 ml @ 100 mls/hr 1X PREOP PRN IV PRIOR TO PROC EDURE Last administered on 07/24/20at 12:21; Start 07/24/20 at 06:00; Stop 07/24/20 at 18:00; Status DC Fentanyl Citrate (Fentanyl 2ml Vial) 25 mcg PRN Q5MIN PRN IVP MILD PAIN 1-3; Start 07/24/20 at 06:00; Stop 07/25/20 at 05:59; Status DC Fentanyl Citrate (Fentanyl 2ml Vial) 50 mcg PRN Q5MIN PRN IVP MODERATE PAIN 4- 6; Start 07/24/20 at 06:00; Stop 07/25/20 at 05:59; Status DC Morphine Sulfate (Morphine Sulfate) 1 mg PRN Q10MIN PRN IVP SEVERE PAIN 7-10; Start 07/24/20 at 06:00; Stop 07/25/20 at 05:59; Status DC Ringer's Solution 1,000 ml @ 30 mls/hr Q24H IV Last administered on 07/24/20at 11:40; Start 07/24/20 at 06:00; Stop 07/24/20 at 17:59; Status DC Hydromorphone HCl (Dilaudid) 0.5 mg PRN Q10MIN PRN IVP SEVERE PAIN 7-10, 2nd CHOICE; Start 07/24/20 at 06:00; Stop 07/25/20 at 05:59; Status DC Prochlorperazine Edisylate (Compazine) 5 mg PACU PRN PRN IVP NAUSEA, MRX1; Sta rt 07/24/20 at 06:00; Stop 07/25/20 at 05:59; Status DC Losartan Potassium (Cozaar) 50 mg DAILY PO ; Start 07/24/20 at 09:00; Stop 07/23/20 at 16:24; Status DC Propranolol HCl (Inderal) 10 mg DAILY PO ; Start 07/24/20 at 09:00; Stop 07/23/20 at 16:24; Status DC Simvastatin (Zocor) 40 mg QHS PO Last administered on 07/24/20at 20:53; Start 07/23/20 at 21:00 Heparin Sodium (Porcine) 5000 unit/Ringer's Solution 505 ml @ 505 mls/hr 1X ONCE IRR Last administered on 07/24/20at 12:42; Start 07/24/20 at 06:00; Stop 07/24/20 at 06:59; Status DC Cefazolin Sodium 1 gm/Sodium Chloride 500 ml @ 500 mls/hr 1X ONCE IRR Last administered on 07/24/20at 12:42; Start 07/24/20 at 06:00; Stop 07/24/20 at 06:59; Status DC Losartan Potassium (Cozaar) 50 mg DAILY PO Last administered on 07/24/20at 09:38; Start 07/23/20 at 16:30 Propranolol HCl (Inderal) 10 mg DAILY PO Last administered on 07/24/20 09:37; Start 07/23/20 at 16:30 Cellulose (Surgicel Fibrillar 1x2) 1 each STK-MED ONCE .ROUTE Last administered on 07/24/20at 13:38; Start 07/24/20 at 11:02; Stop 07/24/20 at 11:02; Status DC Lidocaine HCl (Xylocaine 1% Pf 30ml Vial) 30 ml STK-MED ONCE .ROUTE Last administered on 07/24/20at 12:42; Start 07/24/20 at 11:02; Stop 07/24/20 at 11:02; Status DC Midazolam HCl (Versed) 2 mg STK-MED ONCE .ROUTE ; Start 07/24/20 at 12:00; Stop 07/24/20 at 12:00; Status DC Ropivacaine (Naropin 0.5%) 20 ml STK-MED ONCE .ROUTE ; Start 07/24/20 at 12:04; Stop 07/24/20 at 12:04; Status DC Lidocaine HCl (Xylocaine-Mpf 1% 2ml Vial) 2 ml STK-MED ONCE .ROUTE ; Start 07/24/20 at 12:05; Stop 07/24/20 at 12:06; Status DC Glycopyrrolate (Robinul) 1 mg STK-MED ONCE .ROUTE ; Start 07/24/20 at 13:04; Stop 07/24/20 at 13:04; Status DC Protamine Sulfate (Protamine) 50 mg STK-MED ONCE IV ; Start 07/24/20 at 13:39; Stop 07/24/20 at 13:39; Status DC Hydralazine HCl (Apresoline Inj) 20 mg STK-MED ONCE .ROUTE ; Start 07/24/20 at 13:46; Stop 07/24/20 at 13:46; Status DC Cefazolin Sodium/ Dextrose 50 ml @ 100 mls/hr Q8H IV Last administered on 07/25/20at 04:41; Start 07/24/20 at 20:30; Stop 07/25/20 at 04:59; Status DC Hydralazine HCl (Apresoline Inj) 10 mg PRN Q1HR PRN IVP ELEVATED BP, SEE COMMENTS Last administered on 07/25/20at 04:30; Start 07/24/20 at 14:30 Morphine Sulfate (Morphine Sulfate) 2 mg PRN Q2HR PRN IV PAIN Last administered on 07/25/20at 02:27; Start 07/24/20 at 14:30 Acetaminophen/ Hydrocodone Bitart (Lortab 5/325) 1 tab PRN Q4HRS PRN PO PAIN; Start 07/24/20 at 14:30; Status Cancel Iohexol (Omnipaque 350 Mg/ml) 75 ml 1X ONCE IV Last administered on 07/24/20at 15:40; Start 07/24/20 at 15:45; Stop 07/24/20 at 15:46; Status DC Info (CONTRAST GIVEN -- Rx MONITORING) 1 each PRN DAILY PRN MC SEE COMMENTS; Start 07/24/20 at 15:45; Stop 07/26/20 at 15:44 Active Scripts Active Reported Calcium 500 + D Tablet (Calcium Carbonate/Vitamin D3) 1 Each Tablet 1 Tab PO DAILY 30 Days Aspirin Ec (Aspirin) 81 Mg Tablet.dr 1 Tab PO DAILY Losartan Potassium 50 Mg Tablet 1 Tab PO DAILY Furosemide 40 Mg Tablet 1 Tab PO DAILY Allopurinol 300 Mg Tablet 1 Tab PO DAILY Klor-Con M20 (Potassium Chloride) 20 Meq Tab.er.prt 1 Tab PO DAILY Simvastatin 40 Mg Tablet 1 Tab PO QHS Propranolol Hcl 10 Mg Tablet 10 Mg PO DAILY Vitals/I & O Vital Sign - Last 24 Hours 07/24/20 07/24/20 07/24/20 07/24/20 17:30 19:00 20:00 20:00 Temp 97.9 97.9 Pulse 70 76 76 Resp 16 18 15 B/P (MAP) 150/50 (83) 166/54 (91) 154/48 (83) Pulse Ox 88 91 93 O2 Delivery Room Air Nasal Cannula Nasal Cannula Nasal Cannula O2 Flow Rate 2.0 2.0 2.0 07/24/20 07/24/20 07/24/20 07/24/20 20:27 21:00 22:00 22:00 Pulse 90 82 78 78 Resp 17 13 12 B/P (MAP) 170/57 132/42 (72) 114/36 (62) 116/42 (66) Pulse Ox 92 92 93 O2 Delivery Nasal Cannula Nasal Cannula Nasal Cannula O2 Flow Rate 2.0 2.0 2.0 07/24/20 07/25/20 07/25/20 07/25/20 23:00 00:00 00:00 01:00 Temp 98.3 98.3 Pulse 78 76 98 Resp 12 11 14 B/P (MAP) 116/42 (66) 112/40 (64) 166/54 (91) Pulse Ox 92 95 95 O2 Delivery Nasal Cannula Nasal Cannula Nasal Cannula Nasal Cannula O2 Flow Rate 2.0 2.0 2.0 2.0 07/25/20 07/25/20 07/25/20 07/25/20 02:00 02:27 03:00 04:00 Pulse 104 92 Resp 20 24 14 B/P (MAP) 164/52 (89) 118/38 (64) Pulse Ox 95 95 93 O2 Delivery Nasal Cannula Nasal Cannula Nasal Cannula Nasal Cannula O2 Flow Rate 2.0 2.0 2.0 2.0 07/25/20 07/25/20 07/25/20 07/25/20 04:00 04:30 05:00 05:59 Temp 98.0 98.0 Pulse 82 88 78 85 Resp 13 14 10 B/P (MAP) 130/38 (68) 177/58 154/46 (82) 150/44 (79) Pulse Ox 93 95 93 O2 Delivery Nasal Cannula Nasal Cannula Nasal Cannula O2 Flow Rate 2.0 2.0 2.0 07/25/20 07/25/20 07/25/20 07/25/20 07:00 08:00 08:00 09:00 Temp 98.1 98.1 Pulse 102 94 94 Resp 13 12 17 B/P (MAP) 132/43 (72) 128/42 (70) 146/50 (82) Pulse Ox 96 93 93 O2 Delivery Nasal Cannula Nasal Cannula Nasal Cannula Nasal Cannula O2 Flow Rate 2.0 2.0 2.0 2.0 07/25/20 10:00 Temp 98.3 98.3 Pulse 92 Resp 16 B/P (MAP) 141/47 (78) Pulse Ox 94 O2 Delivery Nasal Cannula O2 Flow Rate 3.0 Intake and Output 07/24/20 07/24/20 07/25/20 15:00 23:00 07:00 Intake Total 950 ml 230 ml 80 ml Output Total 30 ml 1215 ml 680 ml Balance 920 ml -985 ml -600 ml Justifications for Admission Other Justification MARIBEL MURILLO MD Jul 25, 2020 17:12
--- NOTE | 2020-07-25 17:51 | NUR ---
Patient transferred to after MRI. Patient placed in bed. ROMAINE Reece notified of patients arrival and met pt in room. Patient tolerated transfer well and family member is with him at bedside.
--- NOTE | 2020-07-25 17:57 | NUR ---
NIH done upon transfer to floor from ICU. NIH score 0.
--- NOTE | 2020-07-25 18:11 | RAD ---
MRI of the brain without contrast 07/25/2020 Clinical History: Recurrent aphasia. Technique: Unenhanced T1-weighted sagittal and axial, T2-weighted axial and coronal and FLAIR, gradie nt echo and diffusion-weighted axial images of the brain were obtained. Findings: Comparison study is dated 07/23/2020. There is generalized parenchymal atrophy. Patchy and several small focal areas of increased signal in tensity are seen within the periventricular and subcortical white matter of both cerebral hemispheres on the FLAIR and T2-weighted images consistent with areas of mild small vessel ischemic disease. No acute parenchymal abnormality is seen. No extra-axial fluid collection is seen. There is no MRI ev idence of acute ischemia/infarction. Mild mucosal thickening in seen scattered throughout the paranasal sinuses. Normal flow voids are see n within the major vascular structures surrounding the brain parenchyma. Impression: No acute parenchymal abnormality is seen. Electronically signed by: Dante Cunningham MD (07/25/2020 6:09 PM) [id number]
[2020-07-25] MEDS: SIMVASTATIN 40 MG TABLET. PO SCH (20:44)
[2020-07-26] VITALS (8 sets, daily range): BP systolic 121–176; BP diastolic 56–100
[2020-07-26] MEDS: HALOPERIDOL LACTATE 5 MG/ML VIAL. IVP PRN ×2 (00:13→19:48)
[2020-07-26] MEDS ORDERED: ZIPRASIDONE IM 20 MG VIAL. IM ONE (02:30)
[2020-07-26] MEDS: IV NORMAL SALINE 1000ML BAG 1,000 ML IV SCH ×2 (02:37→11:10)
[2020-07-26] MEDS ORDERED: ADENOSINE 6 MG/2 ML VIAL. IV ONE ×2 (04:05)
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
[2020-07-26 07:29] LABS: BASO % 0 % (0-3); EOS % 0 % (0-3); HEMATOCRIT 48.2 % (39.0-53.0); HEMOGLOBIN 16.2 g/dL (13.0-17.5); LYMPH # 1.3 x10^3/uL (1.0-4.8); LYMPH % 17 % (24-48); MEAN CORPUSCULAR HEMOGLOBIN 34 pg (25-35); MEAN CORPUSCULAR HGB CONC 34 g/dL (31-37); MEAN CORPUSCULAR VOLUME 102 fL (79-100); MONO # 0.9 x10^3/uL (0.0-1.1); MONO % 12 % (0-9); NEUT # 5.7 x10^3/uL (1.8-7.7); NEUT % 71 % (31-73); PLATELET COUNT 186 x10^3/uL (140-400); RED BLOOD COUNT 4.74 x10^6/uL (4.30-5.70); RED CELL DISTRIBUTION WIDTH 15.3 % (11.5-14.5); WHITE BLOOD COUNT 7.9 x10^3/uL (4.0-11.0)
[2020-07-26 07:45] LABS: ALBUMIN 3.3 g/dL (3.4-5.0); ALBUMIN/GLOBULIN RATIO 0.8 (1.0-1.7); CALCIUM 8.8 mg/dL (8.5-10.1); CREATININE 1.2 mg/dL (0.7-1.3); POTASSIUM 4.3 mmol/L (3.5-5.1); TOTAL BILIRUBIN 1.5 mg/dL (0.2-1.0); TOTAL PROTEIN 7.5 g/dL (6.4-8.2)
[2020-07-26] MEDS: CLOPIDOGREL BISULFATE 75 MG TABLET PO SCH (08:00)
[2020-07-26] MEDS: ASPIRIN ENTERIC COATED 325 MG TABLET.DR. PO SCH (08:00)
[2020-07-26] MEDS: LOSARTAN POTASSIUM 50 MG TABLET. PO SCH (09:00)
[2020-07-26] MEDS: PROPRANOLOL 10 MG TABLET. PO SCH (09:00)
--- NOTE | 2020-07-26 11:01 | PDOC ---
[facility] PROGRESS NOTE Date of Service DOS: DATE: 07/26/20 TIME: 10:59 Chief Complaint Chief Complaint ASSESSMENT AND PLAN: Resolving transient ischemic attack, hypertensive encephalopathy. metabolic encephalopathy Severe dementia admitted. We are giving him IV labetalol, p.r.n. clonidine. Severe left proximal internal carotid artery narrowing status post left CEA on 07/24/2020 Continue one-to-one observation as needed IV Haldol or IV Ativan as needed for combative behavior Pending speech evaluation Okay for Seroquel if patient passes speech eval home meds DVT prophylaxis. Full code. Appreciate Dr. Chan's consult. Pre-Op Diagnosis 07-24 Symptomatic Left carotid stenosis Post-Op Diagnosis Same Procedure Performed Left carotid endarterectomy, eversion Surgeon Irving Pretty, Healthcare Market Consultant BENITO Nunez Anesthesiologist TREVIN Easley Anesthesia Type: Local, Regional Blood Loss 30mL 07-25 was less responsive earlier, D/W DR HCAN? MRI The patient is post left carotid endarterectomy since the previous examination. The stenosis involving the proximal left internal carotid artery has resolved. No area of stenosis or occlusion is seen. CTA NECK History of Present Illness History of Present Illness 07/26/2020 Patient had agitative episodes. Likely due to severe dementia and sundowning. IV Haldol and Ativan given. Patient does have mittens on. Will follow vascular surgery for possible removal of BIANKA drain. Patient's chart, labs, images were reviewed and discussed with RN 07-25 was less responsive earlier, D/W DR CHAN? MRI The patient is post left carotid endarterectomy since the previous examination. The stenosis involving the proximal left internal carotid artery has resolved. No area of stenosis or occlusion is seen. CTA NECK CHIEF COMPLAINT: Neuro symptoms. HISTORY OF PRESENT ILLNESS: The patient is a pleasant 80-year-old male who has not taken his meds for a couple of months. He states he has not been able to follow up with his doctor. Today, when he presented with slurred speech and some mental status change, we noticed that his pressure is 217 systolically. He also had stroke symptoms, were concerned he could be having a stroke. I discussed the case with ER physician. We have admitted the patient. We consulted Neurology. I just spoke with Dr. Chan. He feels like this might be hypertensive encephalopathy. We are going to get his pressures down and see if he does better. PAST MEDICAL HISTORY: CHF, CAD, arthritis, left carotid endarterectomy, coronary stents. ALLERGIES: None. FAMILY HISTORY: Diabetes. SOCIAL HISTORY: He does not drink, smoke or take drugs. 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 MEDICATIONS: Reviewed, please refer to the MRAD. REVIEW OF SYSTEMS: GENERAL: No history of weight change, weakness or fevers. SKIN: No bruising, hair changes or rashes. EYES: No blurred, double or loss of vision. NOSE AND THROAT: No history of nosebleeds, hoarseness or sore throat. HEART: No history of palpitations, chest pain or shortness of breath on exertion. LUNGS: Denies cough, hemoptysis, wheezing or shortness of breath. GASTROINTESTINAL: Denies changes in appetite, nausea, vomiting, diarrhea or constipation. GENITOURINARY: No history of frequency, urgency, hesitancy or nocturia. NEUROLOGIC: Denies history of numbness, tingling, tremor or weakness. PSYCHIATRIC: No history of panic, anxiety or depression. ENDOCRINE: No history of heat or cold intolerance, polyuria or polydipsia. EXTREMITIES: Denies muscle weakness, joint pain, pain on walking or stiffness. Vitals/I&O Vitals/I&O: Vital Signs Date Time Temp Pulse Resp B/P (MAP) Pulse Ox O2 Delivery O2 Flow Rate FiO2 07/26/20 08:00 Room Air 2.0 07/26/20 07:00 98.8 113 18 121/65 (83) 98.8 07/26/20 03:13 90 I & O 07/25/20 07/25/20 07/26/20 15:00 23:00 07:00 Intake Total 0 ml Output Total 25 ml 765 ml Balance -25 ml -765 ml Physical Exam Physical Exam: GENERAL: No apparent distress. Alert and oriented. HEENT: Normal cephalic atraumatic, external auditory canals are patent EYES: Extraocular muscles are intact, pupils are equally round and reactive to light and accommodation MUSCULOSKELETAL: Well developed, well nourished, good range of motion ENDOCRINE: No thyromegaly was palpated LYMPHATICS: No cervical chain or axillary nodes were noted HEMATOPOIETIC: No bruising NECK: Supple, no JVD, no thyromegaly was noted. LUNGS: Clear to auscultation in all lung freed without rhonchi or wheezing. HEART: RRR, S1, S2 present. Peripheral pulses intact, no obvious murmurs were noted. ABDOMEN: Soft, nontender. Positive bowel sounds no organomegaly, normal bowel sounds. EXTREMITIES: Without any cyanosis, clubbing, or edema. Pedal pulses intact, Homans sign is negative. NEUROLOGIC: Normal speech, normal tone. A & O x3, moves all extremities, no obvious focal deficits. PSYCHIATRIC: Normal affect, normal mood. Stable. SKIN: No ulcerations or rashes, good skin turgor, no jaundice. VASCULAR: Good capillary refill, neurovascular bundle appears to be intact. General: Cooperative Extremities: No cyanosis Labs Labs: Laboratory Tests Test 07/26/20 07:15 07/26/20 08:36 White Blood Count 7.9 x10^3/uL (4.0-11.0) Red Blood Count 4.74 x10^6/uL (4.30-5.70) Hemoglobin 16.2 g/dL (13.0-17.5) Hematocrit 48.2 % (39.0-53.0) Mean Corpuscular Volume 102 fL (79-100) Mean Corpuscular Hemoglobin 34 pg (25-35) Mean Corpuscular Hemoglobin Concent 34 g/dL (31-37) Red Cell Distribution Width 15.3 % (11.5-14.5) Platelet Count 186 x10^3/uL (140-400) Neutrophils (%) (Auto) 71 % (31-73) Lymphocytes (%) (Auto) 17 % (24-48) Monocytes (%) (Auto) 12 % (0-9) Eosinophils (%) (Auto) 0 % (0-3) Basophils (%) (Auto) 0 % (0-3) Neutrophils # (Auto) 5.7 x10^3/uL (1.8-7.7) Lymphocytes # (Auto) 1.3 x10^3/uL (1.0-4.8) Monocytes # (Auto) 0.9 x10^3/uL (0.0-1.1) Eosinophils # (Auto) 0.0 x10^3/uL (0.0-0.7) Basophils # (Auto) 0.0 x10^3/uL (0.0-0.2) Sodium Level 143 mmol/L (136-145) Potassium Level 4.3 mmol/L (3.5-5.1) Chloride Level 107 mmol/L (98-107) Carbon Dioxide Level 25 mmol/L (21-32) Anion Gap 11 (6-14) Blood Urea Nitrogen 22 mg/dL (8-26) Creatinine 1.2 mg/dL (0.7-1.3) Estimated GFR (Cockcroft-Gault) 58.0 BUN/Creatinine Ratio 18 (6-20) Glucose Level 102 mg/dL (70-99) Calcium Level 8.8 mg/dL (8.5-10.1) Magnesium Level 2.0 mg/dL (1.8-2.4) Total Bilirubin 1.5 mg/dL (0.2-1.0) Aspartate Amino Transf (AST/SGOT) 30 U/L (15-37) Alanine Aminotransferase (ALT/SGPT) 14 U/L (16-63) Alkaline Phosphatase 75 U/L (46-116) Total Protein 7.5 g/dL (6.4-8.2) Albumin 3.3 g/dL (3.4-5.0) Albumin/Globulin Ratio 0.8 (1.0-1.7) Ammonia 15 mcmol/L (11-34) Assessment and Plan Assessmemt and Plan Problems Medical Problems: (1) Carotid stenosis Status: Acute (2) Carotid stenosis, right Status: Acute (3) TIA (transient ischemic attack) Status: Acute Comment Review of Relevant I have reviewed the following items radha (where applicable) has been applied. Medications: Current Medications Medications (Trade) Dose Ordered Sig/Teo Route PRN Reason Start Time Stop Time Status Last Admin Dose Admin Lorazepam (Ativan Inj) 0.5 mg PRN Q3HRS PRN IVP ANXIETY / AGITATION 07/25/20 23:30 07/26/20 08:18 Haloperidol Lactate (Haldol Inj) 1 mg PRN Q8HRS PRN IVP AGITATION 07/26/20 00:15 07/26/20 00:13 Sodium Chloride 1,000 ml @ 80 mls/hr [id number] IV 07/26/20 00:30 07/26/20 02:37 Ziprasidone (Geodon Im) 10 mg 1X ONCE IM 07/26/20 02:30 07/26/20 02:31 DC 07/26/20 02:29 Justifications for Admission Other Justification SHERRY CHOU MD Jul 26, 2020 11:01
--- NOTE | 2020-07-26 13:35 | PDOC ---
Provider Note Date of Service: DATE: 07/26/20 TIME: 13:30 Provider Note S: pt intermittently combative and agitated. Given ativan. Currently soundly sleeping O: vss, afebrile dressing and drain removed from left cervical incision neuro not assessed due to affects of sedation MRI of brain shows no acute changes CTA widely patent left ICA A: s/p left CEA with cognitive changes. P: PT/OT begin lovenox 40 mg SQ daily. Pt not able to take plavix or asa by mouth cont. supportive care. Justifications for Admission Other Justification ADNII MARTINI II, MD Jul 26, 2020 13:35
--- NOTE | 2020-07-26 13:43 | NUR ---
BIANKA drain dc by vascular.
[2020-07-26] MEDS: ENOXAPARIN 40 MG/0.4 ML SYRINGE. SQ SCH (14:06)
[2020-07-26] MEDS: IV DEXTROSE 5 %-0.45 % NACL 1,000 ML IV SCH (14:07)
--- NOTE | 2020-07-26 14:22 | PDOC ---
PROGRESS NOTES Date of Service DATE: 07/26/20 TIME: 14:23 Assessment Problems Medical Problems: (1) Carotid stenosis Status: Acute (2) Carotid stenosis, right Status: Acute (3) TIA (transient ischemic attack) Status: Acute 1. Transient ischemic attack He underwent MRI brain as well as CT arteriogram after the left carotid endarterectomy which did not reveal thrombus or new stroke. He remains encephalopathic. It sounds as if he may have an underlying dementia which may have lowered his threshold for encephalopathy. He also received multiple se dating medicines as he was up and agitated all night long. He was not able to awaken for me. 2. Dementia According to family he may have had some cognitive loss but not severe dementia. He was still driving and working although did require the assistance of his family to complete his tasks. Plan 1. For him to get through the encephalopathy will have to limit lorazepam. Haldol might be a better choice if his behavior is out of control. We need to get him through the agitated state. When he is awake, activation and movement is helpful. Subjective Sleeping, would not awaken. Objective Vital Signs Date Time Temp Pulse Resp B/P (MAP) Pulse Ox O2 Delivery O2 Flow Rate FiO2 07/26/20 11:00 98.3 92 16 124/56 (78) 90 Room Air 98.3 07/26/20 08:00 2.0 Intake and Output 07/26/20 06:56 Intake Total 0 ml Output Total 790 ml Balance -790 ml Intake Oral 0 ml Output Urine Total 750 ml Drainage Total 40 ml PHYSICAL EXAM He was lying on his back with his eyes closed. Respirations were even and unlabored. When held open the eyes were slightly disconjugate. The face was symmetric. Neck was not rigid. When held up in the air he started to generally fight movement of the arms. Plantar stimulation did cause some symmetric withdrawal of the legs. Review of Relevant I have reviewed the following items radha (where applicable) has been applied. Labs Laboratory Tests Test 07/26/20 07:15 07/26/20 08:36 White Blood Count 7.9 x10^3/uL (4.0-11.0) Red Blood Count 4.74 x10^6/uL (4.30-5.70) Hemoglobin 16.2 g/dL (13.0-17.5) Hematocrit 48.2 % (39.0-53.0) Mean Corpuscular Volume 102 fL (79-100) Mean Corpuscular Hemoglobin 34 pg (25-35) Mean Corpuscular Hemoglobin Concent 34 g/dL (31-37) Red Cell Distribution Width 15.3 % (11.5-14.5) Platelet Count 186 x10^3/uL (140-400) Neutrophils (%) (Auto) 71 % (31-73) Lymphocytes (%) (Auto) 17 % (24-48) Monocytes (%) (Auto) 12 % (0-9) Eosinophils (%) (Auto) 0 % (0-3) Basophils (%) (Auto) 0 % (0-3) Neutrophils # (Auto) 5.7 x10^3/uL (1.8-7.7) Lymphocytes # (Auto) 1.3 x10^3/uL (1.0-4.8) Monocytes # (Auto) 0.9 x10^3/uL (0.0-1.1) Eosinophils # (Auto) 0.0 x10^3/uL (0.0-0.7) Basophils # (Auto) 0.0 x10^3/uL (0.0-0.2) Sodium Level 143 mmol/L (136-145) Potassium Level 4.3 mmol/L (3.5-5.1) Chloride Level 107 mmol/L (98-107) Carbon Dioxide Level 25 mmol/L (21-32) Anion Gap 11 (6-14) Blood Urea Nitrogen 22 mg/dL (8-26) Creatinine 1.2 mg/dL (0.7-1.3) Estimated GFR (Cockcroft-Gault) 58.0 BUN/Creatinine Ratio 18 (6-20) Glucose Level 102 mg/dL (70-99) Calcium Level 8.8 mg/dL (8.5-10.1) Magnesium Level 2.0 mg/dL (1.8-2.4) Total Bilirubin 1.5 mg/dL (0.2-1.0) Aspartate Amino Transf (AST/SGOT) 30 U/L (15-37) Alanine Aminotransferase (ALT/SGPT) 14 U/L (16-63) Alkaline Phosphatase 75 U/L (46-116) Total Protein 7.5 g/dL (6.4-8.2) Albumin 3.3 g/dL (3.4-5.0) Albumin/Globulin Ratio 0.8 (1.0-1.7) Ammonia 15 mcmol/L (11-34) Laboratory Tests Test 07/26/20 07:15 07/26/20 08:36 White Blood Count 7.9 x10^3/uL (4.0-11.0) Red Blood Count 4.74 x10^6/uL (4.30-5.70) Hemoglobin 16.2 g/dL (13.0-17.5) Hematocrit 48.2 % (39.0-53.0) Mean Corpuscular Volume 102 fL (79-100) Mean Corpuscular Hemoglobin 34 pg (25-35) Mean Corpuscular Hemoglobin Concent 34 g/dL (31-37) Red Cell Distribution Width 15.3 % (11.5-14.5) Platelet Count 186 x10^3/uL (140-400) Neutrophils (%) (Auto) 71 % (31-73) Lymphocytes (%) (Auto) 17 % (24-48) Monocytes (%) (Auto) 12 % (0-9) Eosinophils (%) (Auto) 0 % (0-3) Basophils (%) (Auto) 0 % (0-3) Neutrophils # (Auto) 5.7 x10^3/uL (1.8-7.7) Lymphocytes # (Auto) 1.3 x10^3/uL (1.0-4.8) Monocytes # (Auto) 0.9 x10^3/uL (0.0-1.1) Eosinophils # (Auto) 0.0 x10^3/uL (0.0-0.7) Basophils # (Auto) 0.0 x10^3/uL (0.0-0.2) Sodium Level 143 mmol/L (136-145) Potassium Level 4.3 mmol/L (3.5-5.1) Chloride Level 107 mmol/L (98-107) Carbon Dioxide Level 25 mmol/L (21-32) Anion Gap 11 (6-14) Blood Urea Nitrogen 22 mg/dL (8-26) Creatinine 1.2 mg/dL (0.7-1.3) Estimated GFR (Cockcroft-Gault) 58.0 BUN/Creatinine Ratio 18 (6-20) Glucose Level 102 mg/dL (70-99) Calcium Level 8.8 mg/dL (8.5-10.1) Magnesium Level 2.0 mg/dL (1.8-2.4) Total Bilirubin 1.5 mg/dL (0.2-1.0) Aspartate Amino Transf (AST/SGOT) 30 U/L (15-37) Alanine Aminotransferase (ALT/SGPT) 14 U/L (16-63) Alkaline Phosphatase 75 U/L (46-116) Total Protein 7.5 g/dL (6.4-8.2) Albumin 3.3 g/dL (3.4-5.0) Albumin/Globulin Ratio 0.8 (1.0-1.7) Ammonia 15 mcmol/L (11-34) Medications Current Medications Iohexol (Omnipaque 350 Mg/ml) 75 ml 1X ONCE IV Last administered on 07/23/20at 08:57; Start 07/23/20 at 09:00; Stop 07/23/20 at 09:01; Status DC Info (CONTRAST GIVEN -- Rx MONITORING) 1 each PRN DAILY PRN MC SEE COMMENTS; Start 07/23/20 at 09:00; Stop 07/24/20 at 17:56; Status DC Acetaminophen (Tylenol) 650 mg PRN Q6HRS PRN PO TEMP > 100.3'F Last administered on 07/24/20at 20:16; Start 07/23/20 at 10:00 Aspirin (Ecotrin) 325 mg DAILYWBKFT PO ; Start 07/24/20 at 08:00 Aspirin (Aspirin Rectal Supp) 300 mg PRN DAILY PRN [place] IF UNABLE TO TAKE PO Last administered on 07/25/20at 12:48; Start 07/23/20 at 10:00 Clonidine HCl (Catapres) 0.3 mg Q8HRS PO ; Start 07/23/20 at 14:00; Stop 07/23/20 at 12:00; Status DC Labetalol HCl (Normodyne Iv Push) 10 mg PRN Q10MIN PRN IVP ELEVATED BP, SEE COMMENTS Last administered on 07/23/20at 12:11; Start 07/23/20 at 12:00 Clonidine HCl (Catapres) 0.3 mg PRN Q8HRS PRN PO HTN Last administered on 07/23/20at 21:00; Start 07/23/20 at 12:00 Clopidogrel Bisulfate (Plavix) 75 mg DAILYWBKFT PO Last administered on 07/23/20at 14:24; Start 07/23/20 at 14:15 Cefazolin Sodium/ Dextrose 50 ml @ 100 mls/hr 1X PREOP PRN IV PRIOR TO PROCEDURE Last administered on 07/24/20at 12:21; Start 07/24/20 at 06:00; Stop 07/24/20 at 18:00; Status DC Fentanyl Citrate (Fentanyl 2ml Vial) 25 mcg PRN Q5MIN PRN IVP MILD PAIN 1-3; Start 07/24/20 at 06:00; Stop 07/25/20 at 05:59; Status DC Fentanyl Citrate (Fentanyl 2ml Vial) 50 mcg PRN Q5MIN PRN IVP MODERATE PAIN 4- 6; Start 07/24/20 at 06:00; Stop 07/25/20 at 05:59; Status DC Morphine Sulfate (Morphine Sulfate) 1 mg PRN Q10MIN PRN IVP SEVERE PAIN 7-10; Start 07/24/20 at 06:00; Stop 07/25/20 at 05:59; Status DC Ringer's Solution 1,000 ml @ 30 mls/hr Q24H IV Last administered on 07/24/20at 11:40; Start 07/24/20 at 06:00; Stop 07/24/20 at 17:59; Status DC Hydromorphone HCl (Dilaudid) 0.5 mg PRN Q10MIN PRN IVP SEVERE PAIN 7-10, 2nd CHOICE; Start 07/24/20 at 06:00; Stop 07/25/20 at 05:59; Status DC Prochlorperazine Edisylate (Compazine) 5 mg PACU PRN PRN IVP NAUSEA, MRX1; Start 07/24/20 at 06:00; Stop 07/25/20 at 05:59; Status DC Losartan Potassium (Cozaar) 50 mg DAILY PO ; Start 07/24/20 at 09:00; Stop 07/23/20 at 16:24; Status DC Propranolol HCl (Inderal) 10 mg DAILY PO ; Start 07/24/20 at 09:00; Stop 07/23/20 at 16:24; Status DC Simvastatin (Zocor) 40 mg QHS PO Last administered on 07/24/20at 20:53; Start 07/23/20 at 21:00 Heparin Sodium (Porcine) 5000 unit/Ringer's Solution 505 ml @ 505 mls/hr 1X O NCE IRR Last administered on 07/24/20at 12:42; Start 07/24/20 at 06:00; Stop 07/24/20 at 06:59; Status DC Cefazolin Sodium 1 gm/Sodium Chloride 500 ml @ 500 mls/hr 1X ONCE IRR Last administered on 07/24/20at 12:42; Start 07/24/20 at 06:00; Stop 07/24/20 at 06:59; Status DC Losartan Potassium (Cozaar) 50 mg DAILY PO Last administered on 07/24/20at 09:38; Start 07/23/20 at 16:30 Propranolol HCl (Inderal) 10 mg DAILY PO Last administered on 07/24/20at 09:37; Start 07/23/20 at 16:30 Cellulose (Surgicel Fibrillar 1x2) 1 each STK-MED ONCE .ROUTE Last administered on 07/24/20at 13:38; Start 07/24/20 at 11:02; Stop 07/24/20 at 11:02; Status DC Lidocaine HCl (Xylocaine 1% Pf 30ml Vial) 30 ml STK-MED ONCE .ROUTE Last administered on 07/24/20at 12:42; Start 07/24/20 at 11:02; Stop 07/24/20 at 11:02; Status DC Midazolam HCl (Versed) 2 mg STK-MED ONCE .ROUTE ; Start 07/24/20 at 12:00; Stop 07/24/20 at 12:00; Status DC Ropivacaine (Naropin 0.5%) 20 ml STK-MED ONCE .ROUTE ; Start 07/24/20 at 12:04; Stop 07/24/20 at 12:04; Status DC Lidocaine HCl (Xylocaine-Mpf 1% 2ml Vial) 2 ml STK-MED ONCE .ROUTE ; Start 07/24/20 at 12:05; Stop 07/24/20 at 12:06; Status DC Glycopyrrolate (Robinul) 1 mg STK-MED ONCE .ROUTE ; Start 07/24/20 at 13:04; Stop 07/24/20 at 13:04; Status DC Protamine Sulfate (Protamine) 50 mg STK-MED ONCE IV ; Start 07/24/20 at 13:39; Stop 07/24/20 at 13:39; Status DC Hydralazine HCl (Apresoline Inj) 20 mg STK-MED ONCE .ROUTE ; Start 07/24/20 at 13:46; Stop 07/24/20 at 13:46; Status DC Cefazolin Sodium/ Dextrose 50 ml @ 100 mls/hr Q8H IV Last administered on 07/25/20at 04:41; Start 07/24/20 at 20:30; Stop 07/25/20 at 04:59; Status DC Hydralazine HCl (Apresoline Inj) 10 mg PRN Q1HR PRN IVP ELEVATED BP, SEE COMMENTS Last administered on 07/25/20at 04:30; Start 07/24/20 at 14:30 Morphine Sulfate (Morphine Sulfate) 2 mg PRN Q2HR PRN IV PAIN Last administered on 07/25/20at 02:27; Start 07/24/20 at 14:30 Acetaminophen/ Hydrocodone Bitart (Lortab 5/325) 1 tab PRN Q4HRS PRN PO PAIN; Start 07/24/20 at 14:30; Status Cancel Iohexol (Omnipaque 350 Mg/ml) 75 ml 1X ONCE IV Last administered on 07/24/20at 15:40; Start 07/24/20 at 15:45; Stop 07/24/20 at 15:46; Status DC Info (CONTRAST GIVEN -- Rx MONITORING) 1 each PRN DAILY PRN MC SEE COMMENTS; Start 07/24/20 at 15:45; Stop 07/26/20 at 15:44 Lorazepam (Ativan Inj) 0.5 mg PRN Q3HRS PRN IVP ANXIETY / AGITATION Last administered on 07/26/20at 08:18; Start 07/25/20 at 23:30 Haloperidol Lactate (Haldol Inj) 1 mg PRN Q8HRS PRN IVP AGITATION Last administered on 07/26/20at 00:13; Start 07/26/20 at 00:15 Sodium Chloride 1,000 ml @ 80 mls/hr [id number] IV Last administered on 07/26/20at 11:10; Start 07/26/20 at 00:30 Ziprasidone (Geodon Im) 10 mg 1X ONCE IM Last administered on 07/26/20at 02:29; Start 07/26/20 at 02:30; Stop 07/26/20 at 02:31; Status DC Adenosine (Adenocard) 6 mg STK-MED ONCE IV ; Start 07/26/20 at 04:05; Stop 07/26/20 at 04:05; Status DC Enoxaparin Sodium (Lovenox 40mg Syringe) 40 mg Q24H SQ Last administered on 07/26/20at 14:06; Start 07/26/20 at 14:00 Dextrose/Sodium Chloride 1,000 ml @ 75 mls/hr [id number] IV Last administered on 07/26/20at 14:07; Start 07/26/20 at 14:30 Active Scripts Active Reported Calcium 500 + D Tablet (Calcium Carbonate/Vitamin D3) 1 Each Tablet 1 Tab PO DAILY 30 Days Aspirin Ec (Aspirin) 81 Mg Tablet.dr 1 Tab PO DAILY Losartan Potassium 50 Mg Tablet 1 Tab PO DAILY Furosemide 40 Mg Tablet 1 Tab PO DAILY Allopurinol 300 Mg Tablet 1 Tab PO DAILY Klor-Con M20 (Potassium Chloride) 20 Meq Tab.er.prt 1 Tab PO DAILY Simvastatin 40 Mg Tablet 1 Tab PO QHS Propranolol Hcl 10 Mg Tablet 10 Mg PO DAILY Vitals/I & O Vital Sign - Last 24 Hours 07/25/20 07/25/20 07/25/20 07/25/20 15:00 19:20 20:12 23:34 Temp 98.6 98.6 Pulse 94 85 Resp 16 21 B/P (MAP) 149/74 (99) 139/60 (86) Pulse Ox 94 95 O2 Delivery Nasal Cannula Room Air Room Air Room Air O2 Flow Rate 2.0 07/26/20 07/26/20 07/26/20 07/26/20 02:15 03:13 04:15 04:40 Temp 98 98.2 98 98.2 Pulse 104 106 114 121 Resp 18 18 20 B/P (MAP) 151/84 (106) 166/85 (112) Pulse Ox 90 O2 Delivery Room Air 07/26/20 07/26/20 07/26/20 07/26/20 07:00 08:00 09:00 09:00 Temp 98.8 98.8 Pulse 113 92 92 Resp 18 B/P (MAP) 121/65 (83) 124/56 124/56 O2 Delivery Room Air Room Air O2 Flow Rate 2.0 07/26/20 11:00 Temp 98.3 98.3 Pulse 92 Resp 16 B/P (MAP) 124/56 (78) Pulse Ox 90 O2 Delivery Room Air Intake and Output 07/25/20 07/25/20 07/26/20 14:56 22:56 06:56 Intake Total 0 ml Output Total 25 ml 765 ml Balance -25 ml -765 ml Justicifation of Admission Dx: Justifications for Admission: Justification of Admission Dx: Yes VANITA SIGALA MD Jul 26, 2020 14:21
[2020-07-26] MEDS: SIMVASTATIN 40 MG TABLET. PO SCH (19:38)
[2020-07-26] MEDS: hydrALAZINE 20 MG/ML VIAL. IVP PRN (19:48)
[2020-07-27] VITALS (7 sets, daily range): BP systolic 90–177; BP diastolic 53–97
[2020-07-27] MEDS: IV DEXTROSE 5 %-0.45 % NACL 1,000 ML IV SCH ×2 (03:45→17:42)
[2020-07-27] MEDS: hydrALAZINE 20 MG/ML VIAL. IVP PRN (08:40)
--- NOTE | 2020-07-27 08:54 | PDOC ---
PROGRESS NOTES Date of Service DATE: 07/27/20 TIME: 08:53 Subjective Subjective He is easily agitated. Moving all extremities appropriately. Oriented to person and place after discussion with nursing this about place. Objective Objective Vital Signs Date Time Temp Pulse Resp B/P (MAP) Pulse Ox O2 Delivery O2 Flow Rate FiO2 07/27/20 08:40 89 162/97 07/27/20 07:00 97.7 20 96 Room Air 97.7 07/26/20 20:18 2.0 Intake and Output 07/27/20 06:56 Intake Total 800 ml Output Total 900 ml Balance -100 ml Intake Oral 0 ml IV Total 800 ml Output Urine Total 900 ml Physical Exam Abdomen: Soft, No tenderness Heart: Regular rate Neck: Other (Left neck incision intact, no edema) Neuro: Other (Awake answering questions, easy aggitation, face symmetrical, tongue midline, equal upper/lower extremity strength) Assessment Assessment Problems Medical Problems: (1) Carotid stenosis Status: Acute (2) Carotid stenosis, right Status: Acute (3) TIA (transient ischemic attack) Status: Acute 4) Encephalopathy Plan Plan of Care He has some improvement in since yesterday, but still with easy agitation. Will repeat attempt at Speech evaluation of swallowing. I spoke with his niece at the bedside. He will likely need inpt rehab upon discharge. He was living independently prior to admission. Family unable to have someone stay with him. Comment Review of Relevant I have reviewed the following items radha (where applicable) has been applied. Labs Laboratory Tests Test 07/26/20 07:15 07/26/20 08:36 White Blood Count 7.9 x10^3/uL (4.0-11.0) Red Blood Count 4.74 x10^6/uL (4.30-5.70) Hemoglobin 16.2 g/dL (13.0-17.5) Hematocrit 48.2 % (39.0-53.0) Mean Corpuscular Volume 102 fL (79-100) Mean Corpuscular Hemoglobin 34 pg (25-35) Mean Corpuscular Hemoglobin Concent 34 g/dL (31-37) Red Cell Distribution Width 15.3 % (11.5-14.5) Platelet Count 186 x10^3/uL (140-400) Neutrophils (%) (Auto) 71 % (31-73) Lymphocytes (%) (Auto) 17 % (24-48) Monocytes (%) (Auto) 12 % (0-9) Eosinophils (%) (Auto) 0 % (0-3) Basophils (%) (Auto) 0 % (0-3) Neutrophils # (Auto) 5.7 x10^3/uL (1.8-7.7) Lymphocytes # (Auto) 1.3 x10^3/uL (1.0-4.8) Monocytes # (Auto) 0.9 x10^3/uL (0.0-1.1) Eosinophils # (Auto) 0.0 x10^3/uL (0.0-0.7) Basophils # (Auto) 0.0 x10^3/uL (0.0-0.2) Sodium Level 143 mmol/L (136-145) Potassium Level 4.3 mmol/L (3.5-5.1) Chloride Level 107 mmol/L (98-107) Carbon Dioxide Level 25 mmol/L (21-32) Anion Gap 11 (6-14) Blood Urea Nitrogen 22 mg/dL (8-26) Creatinine 1.2 mg/dL (0.7-1.3) Estimated GFR (Cockcroft-Gault) 58.0 BUN/Creatinine Ratio 18 (6-20) Glucose Level 102 mg/dL (70-99) Calcium Level 8.8 mg/dL (8.5-10.1) Magnesium Level 2.0 mg/dL (1.8-2.4) Total Bilirubin 1.5 mg/dL (0.2-1.0) Aspartate Amino Transf (AST/SGOT) 30 U/L (15-37) Alanine Aminotransferase (ALT/SGPT) 14 U/L (16-63) Alkaline Phosphatase 75 U/L (46-116) Total Protein 7.5 g/dL (6.4-8.2) Albumin 3.3 g/dL (3.4-5.0) Albumin/Globulin Ratio 0.8 (1.0-1.7) Ammonia 15 mcmol/L (11-34) Medications Current Medications Iohexol (Omnipaque 350 Mg/ml) 75 ml 1X ONCE IV Last administered on 07/23/20at 08:57; Start 07/23/20 at 09:00; Stop 07/23/20 at 09:01; Status DC Info (CONTRAST GIVEN -- Rx MONITORING) 1 each PRN DAILY PRN MC SEE COMMENTS; Start 07/23/20 at 09:00; Stop 07/24/20 at 17:56; Status DC Acetaminophen (Tylenol) 650 mg PRN Q6HRS PRN PO TEMP > 100.3'F Last administered on 07/24/20at 20:16; Start 07/23/20 at 10:00 Aspirin (Ecotrin) 325 mg DAILYWBKFT PO ; Start 07/24/20 at 08:00 Aspirin (Aspirin Rectal Supp) 300 mg PRN DAILY PRN [place] IF UNABLE TO TAKE PO Last administered on 07/25/20at 12:48; Start 07/23/20 at 10:00 Clonidine HCl (Catapres) 0.3 mg Q8HRS PO ; Start 07/23/20 at 14:00; Stop at 12:00; Status DC Labetalol HCl (Normodyne Iv Push) 10 mg PRN Q10MIN PRN IVP ELEVATED BP, SEE COMMENTS Last administered on 07/23/20at 12:11; Start 07/23/20 at 12:00 Clonidine HCl (Catapres) 0.3 mg PRN Q8HRS PRN PO HTN Last administered on 07/23/20at 21:00; Start 07/23/20 at 12:00 Clopidogrel Bisulfate (Plavix) 75 mg DAILYWBKFT PO Last administered on 07/23/20at 14:24; Start 07/23/20 at 14:15 Cefazolin Sodium/ Dextrose 50 ml @ 100 mls/hr 1X PREOP PRN IV PRIOR TO PROCEDURE Last administered on 07/24/20at 12:21; Start 07/24/20 at 06:00; Stop 07/24/20 at 18:00; Status DC Fentanyl Citrate (Fentanyl 2ml Vial) 25 mcg PRN Q5MIN PRN IVP MILD PAIN 1-3; Start 07/24/20 at 06:00; Stop 07/25/20 at 05:59; Status DC Fentanyl Citrate (Fentanyl 2ml Vial) 50 mcg PRN Q5MIN PRN IVP MODERATE PAIN 4- 6; Start 07/24/20 at 06:00; Stop 07/25/20 at 05:59; Status DC Morphine Sulfate (Morphine Sulfate) 1 mg PRN Q10MIN PRN IVP SEVERE PAIN 7-10; Start 07/24/20 at 06:00; Stop 07/25/20 at 05:59; Status DC Ringer's Solution 1,000 ml @ 30 mls/hr Q24H IV Last administered on 07/24/20at 11:40; Start 07/24/20 at 06:00; Stop 07/24/20 at 17:59; Status DC Hydromorphone HCl (Dilaudid) 0.5 mg PRN Q10MIN PRN IVP SEVERE PAIN 7-10, 2nd CHOICE; Start 07/24/20 at 06:00; Stop 07/25/20 at 05:59; Status DC Prochlorperazine Edisylate (Compazine) 5 mg PACU PRN PRN IVP NAUSEA, MRX1; Start 07/24/20 at 06:00; Stop 07/25/20 at 05:59; Status DC Losartan Potassium (Cozaar) 50 mg DAILY PO ; Start 07/24/20 at 09:00; Stop 07/23/20 at 16:24; Status DC Propranolol HCl (Inderal) 10 mg DAILY PO ; Start 07/24/20 at 09:00; Stop 07/23/20 at 16:24; Status DC Simvastatin (Zocor) 40 mg QHS PO Last administered on 07/24/20at 20:53; Start 07/23/20 at 21:00 Heparin Sodium (Porcine) 5000 unit/Ringer's Solution 505 ml @ 505 mls/hr 1X ONCE IRR Last administered on 07/24/20at 12:42; Start 07/24/20 at 06:00; Stop 07/24/20 at 06:59; Status DC Cefazolin Sodium 1 gm/Sodium Chloride 500 ml @ 500 mls/hr 1X ONCE IRR Last administered on 07/24/20at 12:42; Start 07/24/20 at 06:00; Stop 07/24/20 at 06:59; Status DC Losartan Potassium (Cozaar) 50 mg DAILY PO Last administered on 07/24/20at 09:38; Start 07/23/20 at 16:30 Propranolol HCl (Inderal) 10 mg DAILY PO Last administered on 07/24/20at 09:37; Start 07/23/20 at 16:30 Cellulose (Surgicel Fibrillar 1x2) 1 each STK-MED ONCE .ROUTE Last administered on 07/24/20at 13:38; Start 07/24/20 at 11:02; Stop 07/24/20 at 11:02; Status DC Lidocaine HCl (Xylocaine 1% Pf 30ml Vial) 30 ml STK-MED ONCE .ROUTE Last administered on 07/24/20at 12:42; Start 07/24/20 at 11:02; Stop 07/24/20 at 11:02; Status DC Midazolam HCl (Versed) 2 mg STK-MED ONCE .ROUTE ; Start 07/24/20 at 12:00; Stop 07/24/20 at 12:00; Status DC Ropivacaine (Naropin 0.5%) 20 ml STK-MED ONCE .ROUTE ; Start 07/24/20 at 12:04; Stop 07/24/20 at 12:04; Status DC Lidocaine HCl (Xylocaine-Mpf 1% 2ml Vial) 2 ml STK-MED ONCE .ROUTE ; Start 07/24/20 at 12:05; Stop 07/24/20 at 12:06; Status DC Glycopyrrolate (Robinul) 1 mg STK-MED ONCE .ROUTE ; Start 07/24/20 at 13:04; Stop 07/24/20 at 13:04; Status DC Protamine Sulfate (Protamine) 50 mg STK-MED ONCE IV ; Start 07/24/20 at 13:39; Stop 07/24/20 at 13:39; Status DC Hydralazine HCl (Apresoline Inj) 20 mg STK-MED ONCE .ROUTE ; Start 07/24/20 at 13:46; Stop 07/24/20 at 13:46; Status DC Cefazolin Sodium/ Dextrose 50 ml @ 100 mls/hr Q8H IV Last administered on 07/25/20at 04:41; Start 07/24/20 at 20:30; Stop 07/25/20 at 04:59; Status DC Hydralazine HCl (Apresoline Inj) 10 mg PRN Q1HR PRN IVP ELEVATED BP, SEE COMMENTS Last administered on 07/27/20at 08:40; Start 07/24/20 at 14:30 Morphine Sulfate (Morphine Sulfate) 2 mg PRN Q2HR PRN IV PAIN Last administered on 07/25/20at 02:27; Start 07/24/20 at 14:30 Acetaminophen/ Hydrocodone Bitart (Lortab 5/325) 1 tab PRN Q4HRS PRN PO PAIN; Start 07/24/20 at 14:30; Status Cancel Iohexol (Omnipaque 350 Mg/ml) 75 ml 1X ONCE IV Last administered on 07/24/20at 15:40; Start 07/24/20 at 15:45; Stop 07/24/20 at 15:46; Status DC Info (CONTRAST GIVEN -- Rx MONITORING) 1 each PRN DAILY PRN [place] SEE COMMENTS; Start 07/24/20 at 15:45; Stop 07/26/20 at 15:44; Status DC Lorazepam (Ativan Inj) 0.5 mg PRN Q3HRS PRN IVP ANXIETY / AGITATION Last administered on 07/26/20at 08:18; Start 07/25/20 at 23:30 Haloperidol Lactate (Haldol Inj) 1 mg PRN Q8HRS PRN IVP AGITATION Last administered on 07/26/20at 19:48; Start 07/26/20 at 00:15 Sodium Chloride 1,000 ml @ 80 mls/hr [id number] IV Last administered on 07/26/20at 11:10; Start 07/26/20 at 00:30; Stop 07/26/20 at 16:19; Status DC Ziprasidone (Geodon Im) 10 mg 1X ONCE IM Last administered on 07/26/20at 02:29; Start 07/26/20 at 02:30; Stop 07/26/20 at 02:31; Status DC Adenosine (Adenocard) 6 mg STK-MED ONCE IV ; Start 07/26/20 at 04:05; Stop 07/26/20 at 04:05; Status DC Enoxaparin Sodium (Lovenox 40mg Syringe) 40 mg Q24H SQ Last administered on 07/26/20at 14:06; Start 07/26/20 at 14:00 Dextrose/Sodium Chloride 1,000 ml @ 75 mls/hr [id number] IV Last administered on 07/27/20at 03:45; Start 07/26/20 at 14:30 Active Scripts Active Reported Calcium 500 + D Tablet (Calcium Carbonate/Vitamin D3) 1 Each Tablet 1 Tab PO DAILY 30 Days Aspirin Ec (Aspirin) 81 Mg Tablet.dr 1 Tab PO DAILY Losartan Potassium 50 Mg Tablet 1 Tab PO DAILY Furosemide 40 Mg Tablet 1 Tab PO DAILY Allopurinol 300 Mg Tablet 1 Tab PO DAILY Klor-Con M20 (Potassium Chloride) 20 Meq Tab.er.prt 1 Tab PO DAILY Simvastatin 40 Mg Tablet 1 Tab PO QHS Propranolol Hcl 10 Mg Tablet 10 Mg PO DAILY Vitals/I & O Vital Sign - Last 24 Hours 07/26/20 07/26/20 07/26/20 07/26/20 09:00 09:00 11:00 15:00 Temp 98.3 97.8 98.3 97.8 Pulse 92 92 92 83 Resp 16 16 B/P (MAP) 124/56 124/56 124/56 (78) 144/81 (102) Pulse Ox 90 91 O2 Delivery Room Air Room Air 07/26/20 07/26/20 07/26/20 07/26/20 19:40 19:48 20:18 20:56 Temp 99.6 99.6 Pulse 109 109 103 Resp 18 B/P (MAP) 176/100 (125) 176/100 158/87 (110) Pulse Ox 90 O2 Delivery Room Air Nasal Cannula O2 Flow Rate 2.0 07/26/20 07/27/20 07/27/20 07/27/20 22:33 03:02 07:00 08:40 Temp 98.1 98.3 97.7 98.1 98.3 97.7 Pulse 105 99 89 89 Resp 18 16 20 B/P (MAP) 152/83 (106) 177/94 (121) 162/97 (118) 162/97 Pulse Ox 90 91 96 O2 Delivery Room Air Room Air Room Air Intake and Output 07/26/20 07/26/20 07/27/20 14:56 22:56 06:56 Intake Total 800 ml 0 ml Output Total 500 ml 400 ml Balance 300 ml -400 ml Justifications for Admission Other Justification MARCOS HOLDEN MD Jul 27, 2020 08:54
--- NOTE | 2020-07-27 11:01 | PDOC ---
PROGRESS NOTES Date of Service: DATE: 07/27/20 TIME: 11:01 Chief Complaint Chief Complaint ASSESSMENT AND PLAN: Resolving transient ischemic attack, hypertensive encephalopathy. metabolic encephalopathy Severe dementia admitted. We are giving him IV labetalol, p.r.n. clonidine. Severe left proximal internal carotid artery narrowing status post left CEA on 07/24/2020 Continue one-to-one observation as needed IV Haldol or IV Ativan as needed for combative behavior Pending speech evaluation Okay for Seroquel if patient passes speech eval home meds DVT prophylaxis. Full code. Appreciate Dr. Chan's consult. Pre-Op Diagnosis 07-24 Symptomatic Left carotid stenosis Post-Op Diagnosis Same Procedure Performed Left carotid endarterectomy, eversion Surgeon Irving Pretty, [employer] Lines Sales Rep BENITO Nunez Anesthesiologist TREVIN Easley Anesthesia Type: Local, Regional Blood Loss 30mL 07-27 was less responsive earlier, D/W DR CHAN easily agitated on 1:1 will need inpatient rehab on d/c The patient is post left carotid endarterectomy since the previous examination. The stenosis involving the proximal left internal carotid artery has resolved. No area of stenosis or occlusion is seen. CTA NECK History of Present Illness History of Present Illness 07/27/2020 Patient had agitative episodes. Likely due to dementia and sundowning. IV Haldol and Ativan given. Patient's chart, labs, images were reviewed and discussed with RN bp better control zyprexa 2.5 mg po x 1 now D/W RN 07-25 was less responsive earlier, D/W DR CHAN? MRI The patient is post left carotid endarterectomy since the previous examination. The stenosis involving the proximal left internal carotid artery has resolved. No area of stenosis or occlusion is seen. CTA NECK CHIEF COMPLAINT: Neuro symptoms. HISTORY OF PRESENT ILLNESS: The patient is a pleasant 80-year-old male who has not taken his meds for a couple of months. He states he has not been able to follow up with his doctor. Today, when he presented with slurred speech and some mental status change, we noticed that his pressure is 217 systolically. He also had stroke symptoms, were concerned he could be having a stroke. I discussed the case with ER physician. We have admitted the patient. We consulted Neurology. I just spoke with Dr. Chan. He feels like this might be hypertensive encephalopathy. We are going to get his pressures down and see if he does better. PAST MEDICAL HISTORY: CHF, CAD, arthritis, left carotid endarterectomy, coronary stents. ALLERGIES: None. FAMILY HISTORY: Diabetes. SOCIAL HISTORY: He does not drink, smoke or take drugs. 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 MEDICATIONS: Reviewed, please refer to the MRAD. REVIEW OF SYSTEMS: GENERAL: No history of weight change, weakness or fevers. SKIN: No bruising, hair changes or rashes. EYES: No blurred, double or loss of vision. NOSE AND THROAT: No history of nosebleeds, hoarseness or sore throat. HEART: No history of palpitations, chest pain or shortness of breath on exertion. LUNGS: Denies cough, hemoptysis, wheezing or shortness of breath. GASTROINTESTINAL: Denies changes in appetite, nausea, vomiting, diarrhea or constipation. GENITOURINARY: No history of frequency, urgency, hesitancy or nocturia. NEUROLOGIC: Denies history of numbness, tingling, tremor or weakness. PSYCHIATRIC: No history of panic, anxiety or depression. ENDOCRINE: No history of heat or cold intolerance, polyuria or polydipsia. EXTREMITIES: Denies muscle weakness, joint pain, pain on walking or stiffness. Vitals Vitals Vital Signs Date Time Temp Pulse Resp B/P (MAP) Pulse Ox O2 Delivery O2 Flow Rate FiO2 07/27/20 08:40 89 162/97 07/27/20 08:00 Room Air 2.0 07/27/20 07:00 97.7 20 96 97.7 Physical Exam Physical Exam GENERAL: No apparent distress. Alert and oriented. HEENT: Normal cephalic atraumatic, external auditory canals are patent EYES: Extraocular muscles are intact, pupils are equally round and reactive to light and accommodation MUSCULOSKELETAL: Well developed, well nourished, good range of motion ENDOCRINE: No thyromegaly was palpated LYMPHATICS: No cervical chain or axillary nodes were noted HEMATOPOIETIC: No bruising NECK: Supple, no JVD, no thyromegaly was noted. LUNGS: Clear to auscultation in all lung freed without rhonchi or wheezing. HEART: RRR, S1, S2 present. Peripheral pulses intact, no obvious murmurs were noted. ABDOMEN: Soft, nontender. Positive bowel sounds no organomegaly, normal bowel sounds. EXTREMITIES: Without any cyanosis, clubbing, or edema. Pedal pulses intact, Homans sign is negative. NEUROLOGIC: Normal speech, normal tone. A & O x3, moves all extremities, no obvious focal deficits. PSYCHIATRIC: easily agitated SKIN: No ulcerations or rashes, good skin turgor, no jaundice. VASCULAR: Good capillary refill, neurovascular bundle appears to be intact. General: Cooperative, No acute distress Heart: Regular rate Lungs: Clear Abdomen: Soft, No tenderness Extremities: No cyanosis Labs LABS PATIENT: BLUE HODGES ACCOUNT: [id number] : 1940 LOCATION: [facility] AGE: 80 SEX: M EXAM STATUS: ADM IN ORD. PHYSICIAN: MUNIR CHAN MD REASON: recurrent aphasia since last MRI PROCEDURE: BRAIN W/O CONTRAST MRI of the brain without contrast 07/25/2020 Clinical History: Recurrent aphasia. Technique: Unenhanced T1-weighted sagittal and axial, T2-weighted axial and coronal and FLAIR, gradient echo and diffusion-weighted axial images of the brain were obtained. Findings: Comparison study is dated 07/23/2020. There is generalized parenchymal atrophy. Patchy and several small focal areas of increased signal intensity are seen within the periventricular and subcortical white matter of both cerebral hemispheres on the FLAIR and T2- weighted images consistent with areas of mild small vessel ischemic disease. No acute parenchymal abnormality is seen. No extra-axial fluid collection is seen. There is no MRI evidence of acute ischemia/infarction. Mild mucosal thickening in seen scattered throughout the paranasal sinuses. Normal flow voids are seen within the major vascular structures surrounding the brain parenchyma. Impression: No acute parenchymal abnormality is seen. Electronically signed by: Dante Cunningham MD (07/25/2020 6:09 PM) [id number] DICTATED and SIGNED BY: DANTE CUNNINGHAM MD DATE: 07/25/20 [id number] Assessment and Plan Assessmemt and Plan Problems Medical Problems: (1) Carotid stenosis Status: Acute (2) Carotid stenosis, right Status: Acute (3) TIA (transient ischemic attack) Status: Acute Comment Review of Relevant I have reviewed the following items radha (where applicable) has been applied. Labs Laboratory Tests Test 2/27/21 07:15 07/26/20 08:36 White Blood Count 7.9 x10^3/uL (4.0-11.0) Red Blood Count 4.74 x10^6/uL (4.30-5.70) Hemoglobin 16.2 g/dL (13.0-17.5) Hematocrit 48.2 % (39.0-53.0) Mean Corpuscular Volume 102 fL (79-100) Mean Corpuscular Hemoglobin 34 pg (25-35) Mean Corpuscular Hemoglobin Concent 34 g/dL (31-37) Red Cell Distribution Width 15.3 % (11.5-14.5) Platelet Count 186 x10^3/uL (140-400) Neutrophils (%) (Auto) 71 % (31-73) Lymphocytes (%) (Auto) 17 % (24-48) Monocytes (%) (Auto) 12 % (0-9) Eosinophils (%) (Auto) 0 % (0-3) Basophils (%) (Auto) 0 % (0-3) Neutrophils # (Auto) 5.7 x10^3/uL (1.8-7.7) Lymphocytes # (Auto) 1.3 x10^3/uL (1.0-4.8) Monocytes # (Auto) 0.9 x10^3/uL (0.0-1.1) Eosinophils # (Auto) 0.0 x10^3/uL (0.0-0.7) Basophils # (Auto) 0.0 x10^3/uL (0.0-0.2) Sodium Level 143 mmol/L (136-145) Potassium Level 4.3 mmol/L (3.5-5.1) Chloride Level 107 mmol/L (98-107) Carbon Dioxide Level 25 mmol/L (21-32) Anion Gap 11 (6-14) Blood Urea Nitrogen 22 mg/dL (8-26) Creatinine 1.2 mg/dL (0.7-1.3) Estimated GFR (Cockcroft-Gault) 58.0 BUN/Creatinine Ratio 18 (6-20) Glucose Level 102 mg/dL (70-99) Calcium Level 8.8 mg/dL (8.5-10.1) Magnesium Level 2.0 mg/dL (1.8-2.4) Total Bilirubin 1.5 mg/dL (0.2-1.0) Aspartate Amino Transf (AST/SGOT) 30 U/L (15-37) Alanine Aminotransferase (ALT/SGPT) 14 U/L (16-63) Alkaline Phosphatase 75 U/L (46-116) Total Protein 7.5 g/dL (6.4-8.2) Albumin 3.3 g/dL (3.4-5.0) Albumin/Globulin Ratio 0.8 (1.0-1.7) Ammonia 15 mcmol/L (11-34) Medications Current Medications Iohexol (Omnipaque 350 Mg/ml) 75 ml 1X ONCE IV Last administered on 07/23/20at 08:57; Start 07/23/20 at 09:00; Stop 07/23/20 at 09:01; Status DC Info (CONTRAST GIVEN -- Rx MONITORING) 1 each PRN DAILY PRN MC SEE COMMENTS; Start 07/23/20 at 09:00; Stop 07/24/20 at 17:56; Status DC Acetaminophen (Tylenol) 650 mg PRN Q6HRS PRN PO TEMP > 100.3'F Last administered on 07/24/20at 20:16; Start 07/23/20 at 10:00 Aspirin (Ecotrin) 325 mg DAILYWBKFT PO ; Start 07/24/20 at 08:00 Aspirin (Aspirin Rectal Supp) 300 mg PRN DAILY PRN OH IF UNABLE TO TAKE PO Last administered on 07/25/20at 12:48; Start 07/23/20 at 10:00 Clonidine HCl (Catapres) 0.3 mg Q8HRS PO ; Start 07/23/20 at 14:00; Stop 07/23/20 at 12:00; Status DC Labetalol HCl (Normodyne Iv Push) 10 mg PRN Q10MIN PRN IVP ELEVATED BP, SEE COMMENTS Last administered on 07/23/20at 12:11; Start 07/23/20 at 12:00 Clonidine HCl (Catapres) 0.3 mg PRN Q8HRS PRN PO HTN Last administered on 07/23/20at 21:00; Start 07/23/20 at 12:00 Clopidogrel Bisulfate (Plavix) 75 mg DAILYWBKFT PO Last administered on 07/23/20at 14:24; Start 07/23/20 at 14:15 Cefazolin Sodium/ Dextrose 50 ml @ 100 mls/hr 1X PREOP PRN IV PRIOR TO PROCEDURE Last administered on 07/24/20at 12:21; Start 07/24/20 at 06:00; Stop 07/24/20 at 18:00; Status DC Fentanyl Citrate (Fentanyl 2ml Vial) 25 mcg PRN Q5MIN PRN IVP MILD PAIN 1-3; Start 07/24/20 at 06:00; Stop 07/25/20 at 05:59; Status DC Fentanyl Citrate (Fentanyl 2ml Vial) 50 mcg PRN Q5MIN PRN IVP MODERATE PAIN 4- 6; Start 07/24/20 at 06:00; Stop 07/25/20 at 05:59; Status DC Morphine Sulfate (Morphine Sulfate) 1 mg PRN Q10MIN PRN IVP SEVERE PAIN 7-10; Start 07/24/20 at 06:00; Stop 07/25/20 at 05:59; Status DC Ringer's Solution 1,000 ml @ 30 mls/hr Q24H IV Last administered on 07/24/20at 11:40; Start 07/24/20 at 06:00; Stop 07/24/20 at 17:59; Status DC Hydromorphone HCl (Dilaudid) 0.5 mg PRN Q10MIN PRN IVP SEVERE PAIN 7-10, 2nd CHOICE; Start 07/24/20 at 06:00; Stop 07/25/20 at 05:59; Status DC Prochlorperazine Edisylate (Compazine) 5 mg PACU PRN PRN IVP NAUSEA, MRX1; Start 07/24/20 at 06:00; Stop 07/25/20 at 05:59; Status DC Losartan Potassium (Cozaar) 50 mg DAILY PO ; Start 07/24/20 at 09:00; Stop 07/23/20 at 16:24; Status DC Propranolol HCl (Inderal) 10 mg DAILY PO ; Start 07/24/20 at 09:00; Stop 07/23/20 at 16:24; Status DC Simvastatin (Zocor) 40 mg QHS PO Last administered on 07/24/20at 20:53; Start 07/23/20 at 21:00 Heparin Sodium (Porcine) 5000 unit/Ringer's Solution 505 ml @ 505 mls/hr 1X ONCE IRR Last administered on 07/24/20at 12:42; Start 07/24/20 at 06:00; Stop 07/24/20 at 06:59; Status DC Cefazolin Sodium 1 gm/Sodium Chloride 500 ml @ 500 mls/hr 1X ONCE IRR Last administered on 07/24/20at 12:42; Start 07/24/20 at 06:00; Stop 07/24/20 at 06:59; Status DC Losartan Potassium (Cozaar) 50 mg DAILY PO Last administered on 07/24/20at 09:38; Start 07/23/20 at 16:30 Propranolol HCl (Inderal) 10 mg DAILY PO Last administered on 07/24/20at 09:37; Start 07/23/20 at 16:30 Cellulose (Surgicel Fibrillar 1x2) 1 each STK-MED ONCE .ROUTE Last administered on 07/24/20at 13:38; Start 07/24/20 at 11:02; Stop 07/24/20 at 11:02; Status DC Lidocaine HCl (Xylocaine 1% Pf 30ml Vial) 30 ml STK-MED ONCE .ROUTE Last administered on 07/24/20at 12:42; Start 07/24/20 at 11:02; Stop 07/24/20 at 11:02; Status DC Midazolam HCl (Versed) 2 mg STK-MED ONCE .ROUTE ; Start 07/24/20 at 12:00; Stop 07/24/20 at 12:00; Status DC Ropivacaine (Naropin 0.5%) 20 ml STK-MED ONCE .ROUTE ; Start 07/24/20 at 12:04; Stop 07/24/20 at 12:04; Status DC Lidocaine HCl (Xylocaine-Mpf 1% 2ml Vial) 2 ml STK-MED ONCE .ROUTE ; Start 07/24/20 at 12:05; Stop 07/24/20 at 12:06; Status DC Glycopyrrolate (Robinul) 1 mg STK-MED ONCE .ROUTE ; Start 07/24/20 at 13:04; Stop 07/24/20 at 13:04; Status DC Protamine Sulfate (Protamine) 50 mg STK-MED ONCE IV ; Start 07/24/20 at 13:39; Stop 07/24/20 at 13:39; Status DC Hydralazine HCl (Apresoline Inj) 20 mg STK-MED ONCE .ROUTE ; Start 07/24/20 at 13:46; Stop 07/24/20 at 13:46; Status DC Cefazolin Sodium/ Dextrose 50 ml @ 100 mls/hr Q8H IV Last administered on 07/25at 04:41; Start 07/24/20 at 20:30; Stop 07/25/20 at 04:59; Status DC Hydralazine HCl (Apresoline Inj) 10 mg PRN Q1HR PRN IVP ELEVATED BP, SEE COMMENTS Last administered on 07/27/20at 08:40; Start 07/24/20 at 14:30 Morphine Sulfate (Morphine Sulfate) 2 mg PRN Q2HR PRN IV PAIN Last administered on 07/25/20at 02:27; Start 07/24/20 at 14:30 Acetaminophen/ Hydrocodone Bitart (Lortab 5/325) 1 tab PRN Q4HRS PRN PO PAIN; Start 07/24/20 at 14:30; Status Cancel Iohexol (Omnipaque 350 Mg/ml) 75 ml 1X ONCE IV Last administered on 07/24/20at 15:40; Start 07/24/20 at 15:45; Stop 07/24/20 at 15:46; Status DC Info (CONTRAST GIVEN -- Rx MONITORING) 1 each PRN DAILY PRN MC SEE COMMENTS; Start 07/24/20 at 15:45; Stop 07/26/20 at 15:44; Status DC Lorazepam (Ativan Inj) 0.5 mg PRN Q3HRS PRN IVP ANXIETY / AGITATION Last administered on 07/26/20at 08:18; Start 07/25/20 at 23:30 Haloperidol Lactate (Haldol Inj) 1 mg PRN Q8HRS PRN IVP AGITATION Last administered on 07/26/20at 19:48; Start 07/26/20 at 00:15 Sodium Chloride 1,000 ml @ 80 mls/hr [id number] IV Last administered on 07/26/20at 11:10; Start 07/26/20 at 00:30; Stop 07/26/20 at 16:19; Status DC Ziprasidone (Geodon Im) 10 mg 1X ONCE IM Last administered on 07/26/20at 02:29; Start 07/26/20 at 02:30; Stop 07/26/20 at 02:31; Status DC Adenosine (Adenocard) 6 mg STK-MED ONCE IV ; Start 07/26/20 at 04:05; Stop 07/26/20 at 04:05; Status DC Enoxaparin Sodium (Lovenox 40mg Syringe) 40 mg Q24H SQ Last administered on 07/26/20at 14:06; Start 07/26/20 at 14:00 Dextrose/Sodium Chloride 1,000 ml @ 75 mls/hr [id number] IV Last administered on 07/27/20at 03:45; Start 07/26/20 at 14:30 Active Scripts Active Reported Calcium 500 + D Tablet (Calcium Carbonate/Vitamin D3) 1 Each Tablet 1 Tab PO DAILY 30 Days Aspirin Ec (Aspirin) 81 Mg Tablet.dr 1 Tab PO DAILY Losartan Potassium 50 Mg Tablet 1 Tab PO DAILY Furosemide 40 Mg Tablet 1 Tab PO DAILY Allopurinol 300 Mg Tablet 1 Tab PO DAILY Klor-Con M20 (Potassium Chloride) 20 Meq Tab.er.prt 1 Tab PO DAILY Simvastatin 40 Mg Tablet 1 Tab PO QHS Propranolol Hcl 10 Mg Tablet 10 Mg PO DAILY Vitals/I & O Vital Sign - Last 24 Hours 07/26/20 07/26/20 07/26/20 07/26/20 15:00 19:40 19:48 20:18 Temp 97.8 99.6 97.8 99.6 Pulse 83 109 109 Resp 16 18 B/P (MAP) 144/81 (102) 176/100 (125) 176/100 Pulse Ox 91 90 O2 Delivery Room Air Room Air Nasal Cannula O2 Flow Rate 2.0 07/26/20 07/26/20 07/27/20 07/27/20 20:56 22:33 03:02 07:00 Temp 98.1 98.3 97.7 98.1 98.3 97.7 Pulse 103 105 99 89 Resp 18 16 20 B/P (MAP) 158/87 (110) 152/83 (106) 177/94 (121) 162/97 (118) Pulse Ox 90 91 96 O2 Delivery Room Air Room Air Room Air 07/27/20 07/27/20 08:00 08:40 Pulse 89 B/P (MAP) 162/97 O2 Delivery Room Air O2 Flow Rate 2.0 Intake and Output 07/26/20 07/26/20 07/27/20 15:00 23:00 07:00 Intake Total 800 ml 0 ml Output Total 500 ml 400 ml Balance 300 ml -400 ml Justicifation of Admission Dx: Justifications for Admission: Justification of Admission Dx: Yes GAIL VANG MD Jul 27, 2020 11:01
[2020-07-27] MEDS: LOSARTAN POTASSIUM 50 MG TABLET. PO SCH (11:56)
[2020-07-27] MEDS: ASPIRIN ENTERIC COATED 325 MG TABLET.DR. PO SCH (11:56)
[2020-07-27] MEDS: CLOPIDOGREL BISULFATE 75 MG TABLET PO SCH (11:57)
[2020-07-27] MEDS: PROPRANOLOL 10 MG TABLET. PO SCH (11:57)
[2020-07-27] MEDS ORDERED: OLANZapine 2.5 MG TABLET PO ONE (13:45)
[2020-07-27] MEDS: ENOXAPARIN 40 MG/0.4 ML SYRINGE. SQ SCH (14:19)
[2020-07-27 16:37] LABS: BILIRUBIN,URINE MODERATE (NEG); CLARITY,URINE CLEAR; COLOR,URINE AMBER; NITRITE,URINE NEGATIVE (NEG); PROTEIN,URINE 30 mg/dL (NEG-TRACE)
[2020-07-27 16:55] LABS: HYALINE CASTS, URINE FEW /HPF
[2020-07-27 16:59] LABS: BACTERIA,URINE FEW /HPF (0-FEW)
--- NOTE | 2020-07-27 18:42 | PDOC ---
PROGRESS NOTES Date of Service DATE: 07/27/20 TIME: 18:42 Assessment Problems Medical Problems: (1) Carotid stenosis Status: Acute (2) Carotid stenosis, right Status: Acute (3) TIA (transient ischemic attack) Status: Acute 1. Transient ischemic attack He underwent MRI brain as well as CT arteriogram after the left carotid endarterectomy which did not reveal thrombus or new stroke. 2. Dementia According to family he may have had some cognitive loss but not severe dementia. He was still driving and working although did require the assistance of his family to complete his tasks. 3. Encephalopathy The encephalopathy has cleared nicely. He sitting in a chair with his legs elevated. He is alert and cooperative. He does not appear confused or agitated. He was completely oriented. Plan Continue to activate him as much as he is able to tolerate. I spoke with the nursing staff to walk him around a few times before he goes to bed this evening. Subjective I feel pretty good. I am not in any pain. I have chronic swelling in my left calf and foot ever since I had a blood clot in my left leg 7 years ago. I am willing to walk around if the nurses will take me. Objective Vital Signs Date Time Temp Pulse Resp B/P (MAP) Pulse Ox O2 Delivery O2 Flow Rate FiO2 07/27/20 15:00 97.5 87 18 124/63 (83) 91 Room Air 97.5 07/27/20 08:00 2.0 Intake and Output 07/27/20 06:56 Intake Total 800 ml Output Total 900 ml Balance -100 ml Intake Oral 0 ml IV Total 800 ml Output Urine Total 900 ml PHYSICAL EXAM He was alert, awake and cooperative. Speech was fluent and clear. He had a good fund of recent and remote knowledge. Attention and concentration was intact. He was oriented to place, month and year. He followed commands well. Cranial nerves II through XII are intact. Muscle bulk and tone was normal. Power was full and symmetric in upper and lower extremities. There was no arm or leg drift. There was no asterixis. Coordination testing with [id number] and fine motor tapping was intact. Sensation was intact to light touch. He did have swelling and discoloration of his left lower calf. Review of Relevant I have reviewed the following items radha (where applicable) has been applied. Labs Laboratory Tests Test 07/26/20 07:15 07/26/20 08:36 07/27/20 16:00 White Blood Count 7.9 x10^3/uL (4.0-11.0) Red Blood Count 4.74 x10^6/uL (4.30-5.70) Hemoglobin 16.2 g/dL (13.0-17.5) Hematocrit 48.2 % (39.0-53.0) Mean Corpuscular Volume 102 fL (79-100) Mean Corpuscular Hemoglobin 34 pg (25-35) Mean Corpuscular Hemoglobin Concent 34 g/dL (31-37) Red Cell Distribution Width 15.3 % (11.5-14.5) Platelet Count 186 x10^3/uL (140-400) Neutrophils (%) (Auto) 71 % (31-73) Lymphocytes (%) (Auto) 17 % (24-48) Monocytes (%) (Auto) 12 % (0-9) Eosinophils (%) (Auto) 0 % (0-3) Basophils (%) (Auto) 0 % (0-3) Neutrophils # (Auto) 5.7 x10^3/uL (1.8-7.7) Lymphocytes # (Auto) 1.3 x10^3/uL (1.0-4.8) Monocytes # (Auto) 0.9 x10^3/uL (0.0-1.1) Eosinophils # (Auto) 0.0 x10^3/uL (0.0-0.7) Basophils # (Auto) 0.0 x10^3/uL (0.0-0.2) Sodium Level 143 mmol/L (136-145) Potassium Level 4.3 mmol/L (3.5-5.1) Chloride Level 107 mmol/L (98-107) Carbon Dioxide Level 25 mmol/L (21-32) Anion Gap 11 (6-14) Blood Urea Nitrogen 22 mg/dL (8-26) Creatinine 1.2 mg/dL (0.7-1.3) Estimated GFR (Cockcroft-Gault) 58.0 BUN/Creatinine Ratio 18 (6-20) Glucose Level 102 mg/dL (70-99) Calcium Level 8.8 mg/dL (8.5-10.1) Magnesium Level 2.0 mg/dL (1.8-2.4) Total Bilirubin 1.5 mg/dL (0.2-1.0) Aspartate Amino Transf (AST/SGOT) 30 U/L (15-37) Alanine Aminotransferase (ALT/SGPT) 14 U/L (16-63) Alkaline Phosphatase 75 U/L (46-116) Total Protein 7.5 g/dL (6.4-8.2) Albumin 3.3 g/dL (3.4-5.0) Albumin/Globulin Ratio 0.8 (1.0-1.7) Ammonia 15 mcmol/L (11-34) Urine Collection Type Unknown Urine Color Twyla Urine Clarity Clear Urine pH 6.0 (<5.0-8.0) Urine Specific [place] >=1.030 (1.000-1.030) Urine Protein 30 mg/dL (NEG-TRACE) Urine Glucose (UA) Negative mg/dL (NEG) Urine Ketones (Stick) >=80 mg/dL (NEG) Urine Blood Large (NEG) Urine Nitrite Negative (NEG) Urine Bilirubin Moderate (NEG) Urine Urobilinogen Dipstick 1.0 mg/dL (0.2 mg/dL) Urine Leukocyte Esterase Small (NEG) Urine RBC 11-20 /HPF (0-2) Urine WBC 5-10 /HPF (0-4) Urine Squamous Epithelial Cells Few /LPF Urine Bacteria Few /HPF (0-FEW) Urine Hyaline Casts Few /HPF Urine Mucus Marked /LPF Laboratory Tests Test 07/27/20 16:00 Urine Collection Type Unknown Urine Color Twyla Urine Clarity Clear Urine pH 6.0 (<5.0-8.0) Urine Specific [place] >=1.030 (1.000-1.030) Urine Protein 30 mg/dL (NEG-TRACE) Urine Glucose (UA) Negative mg/dL (NEG) Urine Ketones (Stick) >=80 mg/dL (NEG) Urine Blood Large (NEG) Urine Nitrite Negative (NEG) Urine Bilirubin Moderate (NEG) Urine Urobilinogen Dipstick 1.0 mg/dL (0.2 mg/dL) Urine Leukocyte Esterase Small (NEG) Urine RBC 11-20 /HPF (0-2) Urine WBC 5-10 /HPF (0-4) Urine Squamous Epithelial Cells Few /LPF Urine Bacteria Few /HPF (0-FEW) Urine Hyaline Casts Few /HPF Urine Mucus Marked /LPF Medications Current Medications Iohexol (Omnipaque 350 Mg/ml) 75 ml 1X ONCE IV Last administered on 07/23/20at 08:57; Start 07/23/20 at 09:00; Stop 07/23/20 at 09:01; Status DC Info (CONTRAST GIVEN -- Rx MONITORING) 1 each PRN DAILY PRN MC SEE COMMENTS; Start 07/23/20 at 09:00; Stop 07/24/20 at 17:56; Status DC Acetaminophen (Tylenol) 650 mg PRN Q6HRS PRN PO TEMP > 100.3'F Last administered on 07/24/20at 20:16; Start 07/23/20 at 10:00 Aspirin (Ecotrin) 325 mg DAILYWBKFT PO Last administered on 07/27/20at 11:56; Start 07/24/20 at 08:00 Aspirin (Aspirin Rectal Supp) 300 mg PRN DAILY PRN NC IF UNABLE TO TAKE PO Last administered on 07/25/20at 12:48; Start 07/23/20 at 10:00 Clonidine HCl (Catapres) 0.3 mg Q8HRS PO ; Start 07/23/20 at 14:00; Stop 07/23 at 12:00; Status DC Labetalol HCl (Normodyne Iv Push) 10 mg PRN Q10MIN PRN IVP ELEVATED BP, SEE COMMENTS Last administered on 07/23/20at 12:11; Start 07/23/20 at 12:00 Clonidine HCl (Catapres) 0.3 mg PRN Q8HRS PRN PO HTN Last administered on 07/23/20at 21:00; Start 07/23/20 at 12:00 Clopidogrel Bisulfate (Plavix) 75 mg DAILYWBKFT PO Last administered on 07/27/20at 11:57; Start 07/23/20 at 14:15 Cefazolin Sodium/ Dextrose 50 ml @ 100 mls/hr 1X PREOP PRN IV PRIOR TO PROCEDURE Last administered on 07/24/20at 12:21; Start 07/24/20 at 06:00; Stop 07/24/20 at 18:00; Status DC Fentanyl Citrate (Fentanyl 2ml Vial) 25 mcg PRN Q5MIN PRN IVP MILD PAIN 1-3; Start 07/24/20 at 06:00; Stop 07/25/20 at 05:59; Status DC Fentanyl Citrate (Fentanyl 2ml Vial) 50 mcg PRN Q5MIN PRN IVP MODERATE PAIN 4- 6; Start 07/24/20 at 06:00; Stop 07/25/20 at 05:59; Status DC Morphine Sulfate (Morphine Sulfate) 1 mg PRN Q10MIN PRN IVP SEVERE PAIN 7-10; Start 07/24/20 at 06:00; Stop 07/25/20 at 05:59; Status DC Ringer's Solution 1,000 ml @ 30 mls/hr Q24H IV Last administered on 07/24/20at 11:40; Start 07/24/20 at 06:00; Stop 07/24/20 at 17:59; Status DC Hydromorphone HCl (Dilaudid) 0.5 mg PRN Q10MIN PRN IVP SEVERE PAIN 7-10, 2nd CHOICE; Start 07/24/20 at 06:00; Stop 07/25/20 at 05:59; Status DC Prochlorperazine Edisylate (Compazine) 5 mg PACU PRN PRN IVP NAUSEA, MRX1; Start 07/24/20 at 06:00; Stop 07/25/20 at 05:59; Status DC Losartan Potassium (Cozaar) 50 mg DAILY PO ; Start 07/24/20 at 09:00; Stop 07/23/20 at 16:24; Status DC Propranolol HCl (Inderal) 10 mg DAILY PO ; Start 07/24/20 at 09:00; Stop 07/23/20 at 16:24; Status DC Simvastatin (Zocor) 40 mg QHS PO Last administered on 07/24/20at 20:53; Start 07/23/20 at 21:00 Heparin Sodium (Porcine) 5000 unit/Ringer's Solution 505 ml @ 505 mls/hr 1X ONCE IRR Last administered on 07/24/20at 12:42; Start 07/24/20 at 06:00; Stop 07/24/20 at 06:59; Status DC Cefazolin Sodium 1 gm/Sodium Chloride 500 ml @ 500 mls/hr 1X ONCE IRR Last administered on 07/24/20at 12:42; Start 07/24/20 at 06:00; Stop 07/24/20 at 06:59; Status DC Losartan Potassium (Cozaar) 50 mg DAILY PO Last administered on 07/27/20at 11:56; Start 07/23/20 at 16:30 Propranolol HCl (Inderal) 10 mg DAILY PO Last administered on 07/27/20at 11:57; Start 07/23/20 at 16:30 Cellulose (Surgicel Fibrillar 1x2) 1 each STK-MED ONCE .ROUTE Last administered on 07/24/20at 13:38; Start 07/24/20 at 11:02; Stop 07/24/20 at 11:02; Status DC Lidocaine HCl (Xylocaine 1% Pf 30ml Vial) 30 ml STK-MED ONCE .ROUTE Last administered on 07/24/20at 12:42; Start 07/24/20 at 11:02; Stop 07/24/20 at 11:02; Status DC Midazolam HCl (Versed) 2 mg STK-MED ONCE .ROUTE ; Start 07/24/20 at 12:00; Stop 07/24/20 at 12:00; Status DC Ropivacaine (Naropin 0.5%) 20 ml STK-MED ONCE .ROUTE ; Start 07/24/20 at 12:04; Stop 07/24/20 at 12:04; Status DC Lidocaine HCl (Xylocaine-Mpf 1% 2ml Vial) 2 ml STK-MED ONCE .ROUTE ; Start 07/24/20 at 12:05; Stop 07/24/20 at 12:06; Status DC Glycopyrrolate (Robinul) 1 mg STK-MED ONCE .ROUTE ; Start 07/24/20 at 13:04; Stop 07/24/20 at 13:04; Status DC Protamine Sulfate (Protamine) 50 mg STK-MED ONCE IV ; Start 07/24/20 at 13:39; Stop 07/24/20 at 13:39; Status DC Hydralazine HCl (Apresoline Inj) 20 mg STK-MED ONCE .ROUTE ; Start 07/24/20 at 13:46; Stop 07/24/20 at 13:46; Status DC Cefazolin Sodium/ Dextrose 50 ml @ 100 mls/hr Q8H IV Last administered on 07/25/20at 04:41; Start 07/24/20 at 20:30; Stop 07/25/20 at 04:59; Status DC Hydralazine HCl (Apresoline Inj) 10 mg PRN Q1HR PRN IVP ELEVATED BP, SEE COMMENTS Last administered on 07/27/20at 08:40; Start 07/24/20 at 14:30 Morphine Sulfate (Morphine Sulfate) 2 mg PRN Q2HR PRN IV PAIN Last administered on 07/25/20at 02:27; Start 07/24/20 at 14:30 Acetaminophen/ Hydrocodone Bitart (Lortab 5/325) 1 tab PRN Q4HRS PRN PO PAIN; Start 07/24/20 at 14:30; Status Cancel Iohexol (Omnipaque 350 Mg/ml) 75 ml 1X ONCE IV Last administered on 07/24/20at 15:40; Start 07/24/20 at 15:45; Stop 07/24/20 at 15:46; Status DC Info (CONTRAST GIVEN -- Rx MONITORING) 1 each PRN DAILY PRN MC SEE COMMENTS; Start 07/24/20 at 15:45; Stop 07/26/20 at 15:44; Status DC Lorazepam (Ativan Inj) 0.5 mg PRN Q3HRS PRN IVP ANXIETY / AGITATION Last administered on 07/26/20at 08:18; Start 07/25/20 at 23:30 Haloperidol Lactate (Haldol Inj) 1 mg PRN Q8HRS PRN IVP AGITATION Last administered on 07/26/20at 19:48; Start 07/26/20 at 00:15 Sodium Chloride 1,000 ml @ 80 mls/hr [id number] IV Last administered on 07/26/20at 11:10; Start 07/26/20 at 00:30; Stop 07/26/20 at 16:19; Status DC Ziprasidone (Geodon Im) 10 mg 1X ONCE IM Last administered on 07/26/20at 02:29; Start 07/26/20 at 02:30; Stop 07/26/20 at 02:31; Status DC Adenosine (Adenocard) 6 mg STK-MED ONCE IV ; Start 07/26/20 at 04:05; Stop 07/26/20 at 04:05; Status DC Enoxaparin Sodium (Lovenox 40mg Syringe) 40 mg Q24H SQ Last administered on 07/27/20at 14:19; Start 07/26/20 at 14:00 Dextrose/Sodium Chloride 1,000 ml @ 75 mls/hr [id number] IV Last administered on 07/27/20at 17:42; Start 07/26/20 at 14:30 Olanzapine (ZyPREXA) 2.5 mg 1X ONCE PO Last administered on 07/27/20at 14:30; Start 07/27/20 at 13:45; Stop 07/27/20 at 13:46; Status DC Active Scripts Active Reported Calcium 500 + D Tablet (Calcium Carbonate/Vitamin D3) 1 Each Tablet 1 Tab PO DAILY 30 Days Aspirin Ec (Aspirin) 81 Mg Tablet.dr 1 Tab PO DAILY Losartan Potassium 50 Mg Tablet 1 Tab PO DAILY Furosemide 40 Mg Tablet 1 Tab PO DAILY Allopurinol 300 Mg Tablet 1 Tab PO DAILY Klor-Con M20 (Potassium Chloride) 20 Meq Tab.er.prt 1 Tab PO DAILY Simvastatin 40 Mg Tablet 1 Tab PO QHS Propranolol Hcl 10 Mg Tablet 10 Mg PO DAILY Vitals/I & O Vital Sign - Last 24 Hours 07/26/20 07/26/20 07/26/20 07/26/20 19:40 19:48 20:18 20:56 Temp 99.6 99.6 Pulse 109 109 103 Resp 18 B/P (MAP) 176/100 (125) 176/100 158/87 (110) Pulse Ox 90 O2 Delivery Room Air Nasal Cannula O2 Flow Rate 2.0 07/26/20 07/27/20 07/27/20 07/27/20 22:33 03:02 07:00 08:00 Temp 98.1 98.3 97.7 98.1 98.3 97.7 Pulse 105 99 89 Resp 18 16 20 B/P (MAP) 152/83 (106) 177/94 (121) 162/97 (118) Pulse Ox 90 91 96 O2 Delivery Room Air Room Air Room Air Room Air O2 Flow Rate 2.0 07/27/20 07/27/20 07/27/20 07/27/20 08:40 11:00 11:56 11:57 Temp 98.1 98.1 Pulse 89 102 102 102 Resp 16 B/P (MAP) 162/97 132/72 (92) 132/72 132/72 Pulse Ox 93 O2 Delivery Room Air 07/27/20 15:00 Temp 97.5 97.5 Pulse 87 Resp 18 B/P (MAP) 124/63 (83) Pulse Ox 91 O2 Delivery Room Air Intake and Output 07/26/20 07/26/20 07/27/20 14:56 22:56 06:56 Intake Total 800 ml 0 ml Output Total 500 ml 400 ml Balance 300 ml -400 ml Justicifation of Admission Dx: Justifications for Admission: Justification of Admission Dx: Yes VANITA SIGALA MD Jul 27, 2020 18:42
[2020-07-27] MEDS: SIMVASTATIN 40 MG TABLET. PO SCH (20:10)
[2020-07-28 03:09] VITALS: BP 146/62
[2020-07-28] MEDS: IV DEXTROSE 5 %-0.45 % NACL 1,000 ML IV SCH ×2 (05:42→19:50)
[2020-07-28 05:59] LABS: ALBUMIN 2.4 g/dL (3.4-5.0); ALBUMIN/GLOBULIN RATIO 0.7 (1.0-1.7); CALCIUM 7.6 mg/dL (8.5-10.1); CREATININE 0.9 mg/dL (0.7-1.3); GFR 80.8; POTASSIUM 3.5 mmol/L (3.5-5.1); TOTAL BILIRUBIN 1.3 mg/dL (0.2-1.0); TOTAL PROTEIN 5.9 g/dL (6.4-8.2)
[2020-07-28 06:12] LABS: BASO % 0 % (0-3); EOS # 0.2 x10^3/uL (0.0-0.7); EOS % 4 % (0-3); HEMATOCRIT 45.7 % (39.0-53.0); LYMPH # 1.4 x10^3/uL (1.0-4.8); LYMPH % 25 % (24-48); MEAN CORPUSCULAR HEMOGLOBIN 34 pg (25-35); MEAN CORPUSCULAR HGB CONC 33 g/dL (31-37); MEAN CORPUSCULAR VOLUME 102 fL (79-100); MONO # 0.8 x10^3/uL (0.0-1.1); MONO % 13 % (0-9); NEUT # 3.3 x10^3/uL (1.8-7.7); NEUT % 58 % (31-73); PLATELET COUNT 173 x10^3/uL (140-400); RED BLOOD COUNT 4.48 x10^6/uL (4.30-5.70); RED CELL DISTRIBUTION WIDTH 15.4 % (11.5-14.5); WHITE BLOOD COUNT 5.7 x10^3/uL (4.0-11.0)
[2020-07-28 07:00] VITALS: BP 145/77
--- NOTE | 2020-07-28 07:19 | PDOC ---
[facility] PROGRESS NOTE Date of Service DOS: DATE: 07/28/20 TIME: 07:13 Chief Complaint Chief Complaint A/P: Resolving transient ischemic attack, Hypertensive encephalopathy. Metabolic encephalopathy Severe dementia Severe left proximal internal carotid artery narrowing status post left CEA on 07/24/2020 home meds DVT prophylaxis. Full code. Appreciate Dr. Chan's consult. History of Present Illness History of Present Illness Mr Palmer is an 80-year-old male w/ PMHx dCHF, CAD s/p stenting and TIA s/p prior right carotid endarterectomy who has not taken his meds for a couple of months. He states he has not been able to follow up with his doctor. He presented with slurred speech and some mental status change, we noticed that his pressure is 217 systolic. He also had stroke symptoms, were concerned he could be having a stroke. MRI negative but CTA neck showed severe stenosis of the proximal left internal carotid artery. The right carotid artery is patent with no severe stenosis. Vascular surgery consulted and after symptoms resolved he underwent left carotid endarterectomy without significant events. 07/25: Was less responsive earlier, D/W DR CHAN? MRI. The patient is post left carotid endarterectomy since the previous examination. The stenosis involving the proximal left internal carotid artery has resolved. No area of stenosis or occlusion is seen. CTA NECK 07/26: He underwent MRI brain as well as CT arteriogram after the left carotid endarterectomy which did not reveal thrombus or new stroke. Patient had a gitative episodes. 07/27: Notes chronic swelling in left calf and foot ever since blood clot in left leg 7 years ago. Much less confused. Off one-to-one sitter. Seen by neurology and vascular surgery okay for home but does need 24-hour supervision. Plan: [place] out Needs safe discharge, no one is home able to care for him, recommends rehab Vitals/I&O Vitals/I&O: Vital Signs Date Time Temp Pulse Resp B/P (MAP) Pulse Ox O2 Delivery O2 Flow Rate FiO2 07/28/20 07:00 98.5 73 18 145/77 (99) 93 Room Air 98.5 07/27/20 08:00 2.0 I & O 07/27/20 07/27/20 07/28/20 15:00 23:00 07:00 Intake Total 1700 ml 0 ml Output Total 150 ml 1000 ml Balance 1550 ml -1000 ml Physical Exam Physical Exam: GENERAL: No apparent distress. Alert and oriented. HEENT: Normal cephalic atraumatic, external auditory canals are patent EYES: Extraocular muscles are intact, pupils are equally round and reactive to light and accommodation MUSCULOSKELETAL: Well developed, well nourished, good range of motion ENDOCRINE: No thyromegaly was palpated LYMPHATICS: No cervical chain or axillary nodes were noted HEMATOPOIETIC: No bruising NECK: Supple, no JVD, no thyromegaly was noted. LUNGS: Clear to auscultation in all lung freed without rhonchi or wheezing. HEART: RRR, S1, S2 present. Peripheral pulses intact, no obvious murmurs were noted. ABDOMEN: Soft, nontender. Positive bowel sounds no organomegaly, normal bowel sounds. EXTREMITIES: Without any cyanosis, clubbing, or edema. Pedal pulses intact, Homans sign is negative. NEUROLOGIC: Normal speech, normal tone. A & O x3, moves all extremities, no obvious focal deficits. PSYCHIATRIC: easily agitated SKIN: No ulcerations or rashes, good skin turgor, no jaundice. VASCULAR: Good capillary refill, neurovascular bundle appears to be intact. General: Cooperative, No acute distress Heart: Regular rate Lungs: Clear Abdomen: Soft, No tenderness Extremities: No cyanosis Labs Labs: Laboratory Tests Test 07/27/20 16:00 07/28/20 05:03 Urine Collection Type Unknown Urine Color Twyla Urine Clarity Clear Urine pH 6.0 (<5.0-8.0) Urine Specific [place] >=1.030 (1.000-1.030) Urine Protein 30 mg/dL (NEG-TRACE) Urine Glucose (UA) Negative mg/dL (NEG) Urine Ketones (Stick) >=80 mg/dL (NEG) Urine Blood Large (NEG) Urine Nitrite Negative (NEG) Urine Bilirubin Moderate (NEG) Urine Urobilinogen Dipstick 1.0 mg/dL (0.2 mg/dL) Urine Leukocyte Esterase Small (NEG) Urine RBC 11-20 /HPF (0-2) Urine WBC 5-10 /HPF (0-4) Urine Squamous Epithelial Cells Few /LPF Urine Bacteria Few /HPF (0-FEW) Urine Hyaline Casts Few /HPF Urine Mucus Marked /LPF White Blood Count 5.7 x10^3/uL (4.0-11.0) Red Blood Count 4.48 x10^6/uL (4.30-5.70) Hemoglobin 15.0 g/dL (13.0-17.5) Hematocrit 45.7 % (39.0-53.0) Mean Corpuscular Volume 102 fL (79-100) Mean Corpuscular Hemoglobin 34 pg (25-35) Mean Corpuscular Hemoglobin Concent 33 g/dL (31-37) Red Cell Distribution Width 15.4 % (11.5-14.5) Platelet Count 173 x10^3/uL (140-400) Neutrophils (%) (Auto) 58 % (31-73) Lymphocytes (%) (Auto) 25 % (24-48) Monocytes (%) (Auto) 13 % (0-9) Eosinophils (%) (Auto) 4 % (0-3) Basophils (%) (Auto) 0 % (0-3) Neutrophils # (Auto) 3.3 x10^3/uL (1.8-7.7) Lymphocytes # (Auto) 1.4 x10^3/uL (1.0-4.8) Monocytes # (Auto) 0.8 x10^3/uL (0.0-1.1) Eosinophils # (Auto) 0.2 x10^3/uL (0.0-0.7) Basophils # (Auto) 0.0 x10^3/uL (0.0-0.2) Sodium Level 141 mmol/L (136-145) Potassium Level 3.5 mmol/L (3.5-5.1) Chloride Level 108 mmol/L (98-107) Carbon Dioxide Level 28 mmol/L (21-32) Anion Gap 5 (6-14) Blood Urea Nitrogen 15 mg/dL (8-26) Creatinine 0.9 mg/dL (0.7-1.3) Estimated GFR (Cockcroft-Gault) 80.8 BUN/Creatinine Ratio 17 (6-20) Glucose Level 102 mg/dL (70-99) Calcium Level 7.6 mg/dL (8.5-10.1) Total Bilirubin 1.3 mg/dL (0.2-1.0) Aspartate Amino Transf (AST/SGOT) 24 U/L (15-37) Alanine Aminotransferase (ALT/SGPT) 17 U/L (16-63) Alkaline Phosphatase 56 U/L (46-116) Total Protein 5.9 g/dL (6.4-8.2) Albumin 2.4 g/dL (3.4-5.0) Albumin/Globulin Ratio 0.7 (1.0-1.7) Assessment and Plan Assessmemt and Plan Problems Medical Problems: (1) Carotid stenosis Status: Acute (2) Carotid stenosis, right Status: Acute (3) TIA (transient ischemic attack) Status: Acute Comment Review of Relevant I have reviewed the following items radha (where applicable) has been applied. Medications: Current Medications Medications (Trade) Dose Ordered Sig/Teo Route PRN Reason Start Time Stop Time Status Last Admin Dose Admin Olanzapine (ZyPREXA) 2.5 mg 1X ONCE PO 07/27/20 13:45 07/27/20 13:46 DC 07/27/20 14:30 Justifications for Admission Other Justification ZOILA MCCABE MD Jul 28, 2020 07:19
--- NOTE | 2020-07-28 08:39 | PDOC ---
PROGRESS NOTES Date of Service DATE: 07/28/20 TIME: 08:34 Subjective Subjective He is sitting in chair. Good mood. No complaints overnight. Objective Objective Vital Signs Date Time Temp Pulse Resp B/P (MAP) Pulse Ox O2 Delivery O2 Flow Rate FiO2 07/28/20 07:00 98.5 73 18 145/77 (99) 93 Room Air 98.5 07/27/20 08:00 2.0 Intake and Output 07/28/20 07:00 Intake Total 1700 ml Output Total 1150 ml Balance 550 ml Intake Oral 800 ml IV Total 900 ml Output Urine Total 1150 ml # Bowel Movements 1 Physical Exam Abdomen: Soft, No tenderness Heart: Regular rate General: Alert, No acute distress Lungs: Normal air movement Neck: Supple, Other (Left neck incision intact, no edema) Neuro: Other (Face symmetrical, tongue midline, equal upper/lower extremity strength) Assessment Assessment Problems Medical Problems: (1) Carotid stenosis Status: Acute (2) Carotid stenosis, right Status: Acute (3) TIA (transient ischemic attack) Status: Acute Encephalopathy - improving HTN Plan Plan of Care His mental status continues to improve. May increase activity as tolerated. He will need office f/u with Dr. Pretty in 2-3 weeks. Comment Review of Relevant I have reviewed the following items radha (where applicable) has been applied. Labs Laboratory Tests Test 07/26/20 08:36 07/27/20 16:00 07/28/20 05:03 Ammonia 15 mcmol/L (11-34) Urine Collection Type Unknown Urine Color Twyla Urine Clarity Clear Urine pH 6.0 (<5.0-8.0) Urine Specific Normal >=1.030 (1.000-1.030) Urine Protein 30 mg/dL (NEG-TRACE) Urine Glucose (UA) Negative mg/dL (NEG) Urine Ketones (Stick) >=80 mg/dL (NEG) Urine Blood Large (NEG) Urine Nitrite Negative (NEG) Urine Bilirubin Moderate (NEG) Urine Urobilinogen Dipstick 1.0 mg/dL (0.2 mg/dL) Urine Leukocyte Esterase Small (NEG) Urine RBC 11-20 /HPF (0-2) Urine WBC 5-10 /HPF (0-4) Urine Squamous Epithelial Cells Few /LPF Urine Bacteria Few /HPF (0-FEW) Urine Hyaline Casts Few /HPF Urine Mucus Marked /LPF White Blood Count 5.7 x10^3/uL (4.0-11.0) Red Blood Count 4.48 x10^6/uL (4.30-5.70) Hemoglobin 15.0 g/dL (13.0-17.5) Hematocrit 45.7 % (39.0-53.0) Mean Corpuscular Volume 102 fL (79-100) Mean Corpuscular Hemoglobin 34 pg (25-35) Mean Corpuscular Hemoglobin Concent 33 g/dL (31-37) Red Cell Distribution Width 15.4 % (11.5-14.5) Platelet Count 173 x10^3/uL (140-400) Neutrophils (%) (Auto) 58 % (31-73) Lymphocytes (%) (Auto) 25 % (24-48) Monocytes (%) (Auto) 13 % (0-9) Eosinophils (%) (Auto) 4 % (0-3) Basophils (%) (Auto) 0 % (0-3) Neutrophils # (Auto) 3.3 x10^3/uL (1.8-7.7) Lymphocytes # (Auto) 1.4 x10^3/uL (1.0-4.8) Monocytes # (Auto) 0.8 x10^3/uL (0.0-1.1) Eosinophils # (Auto) 0.2 x10^3/uL (0.0-0.7) Basophils # (Auto) 0.0 x10^3/uL (0.0-0.2) Sodium Level 141 mmol/L (136-145) Potassium Level 3.5 mmol/L (3.5-5.1) Chloride Level 108 mmol/L (98-107) Carbon Dioxide Level 28 mmol/L (21-32) Anion Gap 5 (6-14) Blood Urea Nitrogen 15 mg/dL (8-26) Creatinine 0.9 mg/dL (0.7-1.3) Estimated GFR (Cockcroft-Gault) 80.8 BUN/Creatinine Ratio 17 (6-20) Glucose Level 102 mg/dL (70-99) Calcium Level 7.6 mg/dL (8.5-10.1) Total Bilirubin 1.3 mg/dL (0.2-1.0) Aspartate Amino Transf (AST/SGOT) 24 U/L (15-37) Alanine Aminotransferase (ALT/SGPT) 17 U/L (16-63) Alkaline Phosphatase 56 U/L (46-116) Total Protein 5.9 g/dL (6.4-8.2) Albumin 2.4 g/dL (3.4-5.0) Albumin/Globulin Ratio 0.7 (1.0-1.7) Laboratory Tests Test 07/27/20 16:00 07/28/20 05:03 Urine Collection Type Unknown Urine Color Twyla Urine Clarity Clear Urine pH 6.0 (<5.0-8.0) Urine Specific Normal >=1.030 (1.000-1.030) Urine Protein 30 mg/dL (NEG-TRACE) Urine Glucose (UA) Negative mg/dL (NEG) Urine Ketones (Stick) >=80 mg/dL (NEG) Urine Blood Large (NEG) Urine Nitrite Negative (NEG) Urine Bilirubin Moderate (NEG) Urine Urobilinogen Dipstick 1.0 mg/dL (0.2 mg/dL) Urine Leukocyte Esterase Small (NEG) Urine RBC 11-20 /HPF (0-2) Urine WBC 5-10 /HPF (0-4) Urine Squamous Epithelial Cells Few /LPF Urine Bacteria Few /HPF (0-FEW) Urine Hyaline Casts Few /HPF Urine Mucus Marked /LPF White Blood Count 5.7 x10^3/uL (4.0-11.0) Red Blood Count 4.48 x10^6/uL (4.30-5.70) Hemoglobin 15.0 g/dL (13.0-17.5) Hematocrit 45.7 % (39.0-53.0) Mean Corpuscular Volume 102 fL (79-100) Mean Corpuscular Hemoglobin 34 pg (25-35) Mean Corpuscular Hemoglobin Concent 33 g/dL (31-37) Red Cell Distribution Width 15.4 % (11.5-14.5) Platelet Count 173 x10^3/uL (140-400) Neutrophils (%) (Auto) 58 % (31-73) Lymphocytes (%) (Auto) 25 % (24-48) Monocytes (%) (Auto) 13 % (0-9) Eosinophils (%) (Auto) 4 % (0-3) Basophils (%) (Auto) 0 % (0-3) Neutrophils # (Auto) 3.3 x10^3/uL (1.8-7.7) Lymphocytes # (Auto) 1.4 x10^3/uL (1.0-4.8) Monocytes # (Auto) 0.8 x10^3/uL (0.0-1.1) Eosinophils # (Auto) 0.2 x10^3/uL (0.0-0.7) Basophils # (Auto) 0.0 x10^3/uL (0.0-0.2) Sodium Level 141 mmol/L (136-145) Potassium Level 3.5 mmol/L (3.5-5.1) Chloride Level 108 mmol/L (98-107) Carbon Dioxide Level 28 mmol/L (21-32) Anion Gap 5 (6-14) Blood Urea Nitrogen 15 mg/dL (8-26) Creatinine 0.9 mg/dL (0.7-1.3) Estimated GFR (Cockcroft-Gault) 80.8 BUN/Creatinine Ratio 17 (6-20) Glucose Level 102 mg/dL (70-99) Calcium Level 7.6 mg/dL (8.5-10.1) Total Bilirubin 1.3 mg/dL (0.2-1.0) Aspartate Amino Transf (AST/SGOT) 24 U/L (15-37) Alanine Aminotransferase (ALT/SGPT) 17 U/L (16-63) Alkaline Phosphatase 56 U/L (46-116) Total Protein 5.9 g/dL (6.4-8.2) Albumin 2.4 g/dL (3.4-5.0) Albumin/Globulin Ratio 0.7 (1.0-1.7) Medications Current Medications Iohexol (Omnipaque 350 Mg/ml) 75 ml 1X ONCE IV Last administered on 07/23/20at 08:57; Start 07/23/20 at 09:00; Stop 07/23/20 at 09:01; Status DC Info (CONTRAST GIVEN -- Rx MONITORING) 1 each PRN DAILY PRN MC SEE COMMENTS; Start 07/23/20 at 09:00; Stop 07/24/20 at 17:56; Status DC Acetaminophen (Tylenol) 650 mg PRN Q6HRS PRN PO TEMP > 100.3'F Last administered on 07/24/20at 20:16; Start 07/23/20 at 10:00 Aspirin (Ecotrin) 325 mg DAILYWBKFT PO Last administered on 07/27/20at 11:56; Start 07/24/20 at 08:00 Aspirin (Aspirin Rectal Supp) 300 mg PRN DAILY PRN MT IF UNABLE TO TAKE PO Last administered on 07/25/20at 12:48; Start 07/23/20 at 10:00 Clonidine HCl (Catapres) 0.3 mg Q8HRS PO ; Start 07/23/20 at 14:00; Stop 07/23/20 at 12:00; Status DC Labetalol HCl (Normodyne Iv Push) 10 mg PRN Q10MIN PRN IVP ELEVATED BP, SEE COMMENTS Last administered on 07/23/20at 12:11; Start 07/23/20 at 12:00 Clonidine HCl (Catapres) 0.3 mg PRN Q8HRS PRN PO HTN Last administered on 07/23/20at 21:00; Start 07/23/20 at 12:00 Clopidogrel Bisulfate (Plavix) 75 mg DAILYWBKFT PO Last administered on 07/27/20at 11:57; Start 07/23/20 at 14:15 Cefazolin Sodium/ Dextrose 50 ml @ 100 mls/hr 1X PREOP PRN IV PRIOR TO PROCEDURE Last administered on 07/24/20at 12:21; Start 07/24/20 at 06:00; Stop 07/24/20 at 18:00; Status DC Fentanyl Citrate (Fentanyl 2ml Vial) 25 mcg PRN Q5MIN PRN IVP MILD PAIN 1-3; Start 07/24/20 at 06:00; Stop 07/25/20 at 05:59; Status DC Fentanyl Citrate (Fentanyl 2ml Vial) 50 mcg PRN Q5MIN PRN IVP MODERATE PAIN 4- 6; Start 07/24/20 at 06:00; Stop 07/25/20 at 05:59; Status DC Morphine Sulfate (Morphine Sulfate) 1 mg PRN Q10MIN PRN IVP SEVERE PAIN 7-10; Start 07/24/20 at 06:00; Stop 07/25/20 at 05:59; Status DC Ringer's Solution 1,000 ml @ 30 mls/hr Q24H IV Last administered on 07/24/20at 11:40; Start 07/24/20 at 06:00; Stop 07/24/20 at 17:59; Status DC Hydromorphone HCl (Dilaudid) 0.5 mg PRN Q10MIN PRN IVP SEVERE PAIN 7-10, 2nd CHOICE; Start 07/24/20 at 06:00; Stop 07/25/20 at 05:59; Status DC Prochlorperazine Edisylate (Compazine) 5 mg PACU PRN PRN IVP NAUSEA, MRX1; Start 07/24/20 at 06:00; Stop 07/25/20 at 05:59; Status DC Losartan Potassium (Cozaar) 50 mg DAILY PO ; Start 07/24/20 at 09:00; Stop 07/23/20 at 16:24; Status DC Propranolol HCl (Inderal) 10 mg DAILY PO ; Start 07/24/20 at 09:00; Stop 07/23/20 at 16:24; Status DC Simvastatin (Zocor) 40 mg QHS PO Last administered on 07/27/20at 20:10; Start 07/23/20 at 21:00 Heparin Sodium (Porcine) 5000 unit/Ringer's Solution 505 ml @ 505 mls/hr 1X ONCE IRR Last administered on 07/24/20at 12:42; Start 07/24/20 at 06:00; Stop 07/24/20 at 06:59; Status DC Cefazolin Sodium 1 gm/Sodium Chloride 500 ml @ 500 mls/hr 1X ONCE IRR Last administered on 07/24/20at 12:42; Start 07/24/20 at 06:00; Stop 07/24/20 at 06:59; Status DC Losartan Potassium (Cozaar) 50 mg DAILY PO Last administered on 07/27/20at 11:56; Start 07/23/20 at 16:30 Propranolol HCl (Inderal) 10 mg DAILY PO Last administered on 07/27/20at 11:57; Start 07/23/20 at 16:30 Cellulose (Surgicel Fibrillar 1x2) 1 each STK-MED ONCE .ROUTE Last administered on 07/24/20at 13:38; Start 07/24/20 at 11:02; Stop 07/24/20 at 11:02; Status DC Lidocaine HCl (Xylocaine 1% Pf 30ml Vial) 30 ml STK-MED ONCE .ROUTE Last administered on 07/24/20at 12:42; Start 07/24/20 at 11:02; Stop 07/24/20 at 11:02; Status DC Midazolam HCl (Versed) 2 mg STK-MED ONCE .ROUTE ; Start 07/24/20 at 12:00; Stop 07/24/20 at 12:00; Status DC Ropivacaine (Naropin 0.5%) 20 ml STK-MED ONCE .ROUTE ; Start 07/24/20 at 12:04; Stop 07/24/20 at 12:04; Status DC Lidocaine HCl (Xylocaine-Mpf 1% 2ml Vial) 2 ml STK-MED ONCE .ROUTE ; Start 07/24/20 at 12:05; Stop 07/24/20 at 12:06; Status DC Glycopyrrolate (Robinul) 1 mg STK-MED ONCE .ROUTE ; Start 07/24/20 at 13:04; Stop 07/24/20 at 13:04; Status DC Protamine Sulfate (Protamine) 50 mg STK-MED ONCE IV ; Start 07/24/20 at 13:39; Stop 07/24/20 at 13:39; Status DC Hydralazine HCl (Apresoline Inj) 20 mg STK-MED ONCE .ROUTE ; Start 07/24/20 at 13:46; Stop 07/24/20 at 13:46; Status DC Cefazolin Sodium/ Dextrose 50 ml @ 100 mls/hr Q8H IV Last administered on 07/25/20at 04:41; Start 07/24/20 at 20:30; Stop 07/25/20 at 04:59; Status DC Hydralazine HCl (Apresoline Inj) 10 mg PRN Q1HR PRN IVP ELEVATED BP, SEE COMMENTS Last administered on 07/27/20at 08:40; Start 07/24/20 at 14:30 Morphine Sulfate (Morphine Sulfate) 2 mg PRN Q2HR PRN IV PAIN Last administered on 07/25/20at 02:27; Start 07/24/20 at 14:30 Acetaminophen/ Hydrocodone Bitart (Lortab 5/325) 1 tab PRN Q4HRS PRN PO PAIN; Start 07/24/20 at 14:30; Status Cancel Iohexol (Omnipaque 350 Mg/ml) 75 ml 1X ONCE IV Last administered on 07/24/20at 15:40; Start 07/24/20 at 15:45; Stop 07/24/20 at 15:46; Status DC Info (CONTRAST GIVEN -- Rx MONITORING) 1 each PRN DAILY PRN MC SEE COMMENTS; Start 07/24/20 at 15:45; Stop 07/26/20 at 15:44; Status DC Lorazepam (Ativan Inj) 0.5 mg PRN Q3HRS PRN IVP ANXIETY / AGITATION Last administered on 07/26/20at 08:18; Start 07/25/20 at 23:30 Haloperidol Lactate (Haldol Inj) 1 mg PRN Q8HRS PRN IVP AGITATION Last administered on 07/26/20at 19:48; Start 07/26/20 at 00:15 Sodium Chloride 1,000 ml @ 80 mls/hr [id number] IV Last administered on 07/26/20at 11:10; Start 07/26/20 at 00:30; Stop 07/26/20 at 16:19; Status DC Ziprasidone (Geodon Im) 10 mg 1X ONCE IM Last administered on 07/26/20at 02:29; Start 07/26/20 at 02:30; Stop 07/26/20 at 02:31; Status DC Adenosine (Adenocard) 6 mg STK-MED ONCE IV ; Start 07/26/20 at 04:05; Stop 07/26/20 at 04:05; Status DC Enoxaparin Sodium (Lovenox 40mg Syringe) 40 mg Q24H SQ Last administered on 07/27/20at 14:19; Start 07/26/20 at 14:00 Dextrose/Sodium Chloride 1,000 ml @ 75 mls/hr [id number] IV Last administered on 07/28/20at 05:42; Start 07/26/20 at 14:30 Olanzapine (ZyPREXA) 2.5 mg 1X ONCE PO Last administered on 07/27/20at 14:30; Start 07/27/20 at 13:45; Stop 07/27/20 at 13:46; Status DC Adenosine (Adenocard) 6 mg STK-MED ONCE IV ; Start 07/26/20 at 04:05; Stop at 08:20; Status DC Active Scripts Active Reported Calcium 500 + D Tablet (Calcium Carbonate/Vitamin D3) 1 Each Tablet 1 Tab PO DAILY 30 Days Aspirin Ec (Aspirin) 81 Mg Tablet.dr 1 Tab PO DAILY Losartan Potassium 50 Mg Tablet 1 Tab PO DAILY Furosemide 40 Mg Tablet 1 Tab PO DAILY Allopurinol 300 Mg Tablet 1 Tab PO DAILY Klor-Con M20 (Potassium Chloride) 20 Meq Tab.er.prt 1 Tab PO DAILY Simvastatin 40 Mg Tablet 1 Tab PO QHS Propranolol Hcl 10 Mg Tablet 10 Mg PO DAILY Vitals/I & O Vital Sign - Last 24 Hours 07/27/20 07/27/20 07/27/20 07/27/20 08:40 11:00 11:56 11:57 Temp 98.1 98.1 Pulse 89 102 102 102 Resp 16 B/P (MAP) 162/97 132/72 (92) 132/72 132/72 Pulse Ox 93 O2 Delivery Room Air 07/27/20 07/27/20 07/27/20 07/27/20 15:00 18:55 18:55 19:06 Temp 97.5 98.0 97.5 98.0 Pulse 87 84 Resp 18 18 B/P (MAP) 124/63 (83) 90/53 (65) Pulse Ox 91 95 O2 Delivery Room Air Room Air Room Air Room Air 07/27/20 07/28/20 07/28/20 22:18 03:09 07:00 Temp 98.2 97.8 98.5 98.2 97.8 98.5 Pulse 75 70 73 Resp 20 16 18 B/P (MAP) 107/57 (74) 146/62 (90) 145/77 (99) Pulse Ox 97 99 93 O2 Delivery Room Air Room Air Room Air Intake and Output 07/27/20 07/27/20 07/28/20 15:00 23:00 07:00 Intake Total 1700 ml 0 ml Output Total 150 ml 1000 ml Balance 1550 ml -1000 ml Justifications for Admission Other Justification MARCOS HOLDEN MD Jul 28, 2020 08:39
[2020-07-28] MEDS: CLOPIDOGREL BISULFATE 75 MG TABLET PO SCH (08:41)
[2020-07-28] MEDS: PROPRANOLOL 10 MG TABLET. PO SCH (08:41)
[2020-07-28] MEDS: LOSARTAN POTASSIUM 50 MG TABLET. PO SCH (08:41)
[2020-07-28] MEDS: ASPIRIN ENTERIC COATED 325 MG TABLET.DR. PO SCH (08:41)
--- NOTE | 2020-07-28 10:20 | PDOC ---
PROGRESS NOTES Date of Service DATE: 07/28/20 TIME: 10:15 Assessment Problems Medical Problems: (1) Carotid stenosis Status: Acute (2) Carotid stenosis, right Status: Acute (3) TIA (transient ischemic attack) Status: Acute Episodes of aphasia, has had 2 of each: CT angiogram, head CT, MRI. Differential diagnosis includes TIA due to carotid disease, but that has been corrected, complicated migraines, hypertensive encephalopathy, partial seziures, stress reaction, onset of frontal dementia with aphasia Was encephalopathic, may be too much sedation, fine now Status-post left endarterectomy. History of right carotid endarterectomy Very favorable lipid profile Plan EEG Aspirin and clopidogrel Statin, does not need high-dose Okay for discharge later today He will need a family member to stay with him the first few days Follow-up with me or my nurse practitioner in 4-6 weeks Subjective No complaints, wants to go home, feels back to himself Objective Vital Signs Date Time Temp Pulse Resp B/P (MAP) Pulse Ox O2 Delivery O2 Flow Rate FiO2 07/28/20 08:41 73 145/77 07/28/20 08:00 Room Air 07/28/20 07:00 98.5 18 93 98.5 07/27/20 08:00 2.0 Intake and Output 07/28/20 07:00 Intake Total 1700 ml Output Total 1150 ml Balance 550 ml Intake Oral 800 ml IV Total 900 ml Output Urine Total 1150 ml # Bowel Movements 1 PHYSICAL EXAM Alert. Oriented to time, place and person. Speech is fluent PERRL. EOMI. CN: no focal findings. Muscle tone: normal. Muscle strength: 5/5 DTR: 2+ Plantar reflex: Flexor Gait: not examined in bed. Sensory exam: no abnormal findings. No cerebellar signs elicited. Review of Relevant I have reviewed the following items radha (where applicable) has been applied. Labs Laboratory Tests Test 07/27/20 16:00 07/28/20 05:03 Urine Collection Type Unknown Urine Color Twyla Urine Clarity Clear Urine pH 6.0 (<5.0-8.0) Urine Specific Navarro >=1.030 (1.000-1.030) Urine Protein 30 mg/dL (NEG-TRACE) Urine Glucose (UA) Negative mg/dL (NEG) Urine Ketones (Stick) >=80 mg/dL (NEG) Urine Blood Large (NEG) Urine Nitrite Negative (NEG) Urine Bilirubin Moderate (NEG) Urine Urobilinogen Dipstick 1.0 mg/dL (0.2 mg/dL) Urine Leukocyte Esterase Small (NEG) Urine RBC 11-20 /HPF (0-2) Urine WBC 5-10 /HPF (0-4) Urine Squamous Epithelial Cells Few /LPF Urine Bacteria Few /HPF (0-FEW) Urine Hyaline Casts Few /HPF Urine Mucus Marked /LPF White Blood Count 5.7 x10^3/uL (4.0-11.0) Red Blood Count 4.48 x10^6/uL (4.30-5.70) Hemoglobin 15.0 g/dL (13.0-17.5) Hematocrit 45.7 % (39.0-53.0) Mean Corpuscular Volume 102 fL (79-100) Mean Corpuscular Hemoglobin 34 pg (25-35) Mean Corpuscular Hemoglobin Concent 33 g/dL (31-37) Red Cell Distribution Width 15.4 % (11.5-14.5) Platelet Count 173 x10^3/uL (140-400) Neutrophils (%) (Auto) 58 % (31-73) Lymphocytes (%) (Auto) 25 % (24-48) Monocytes (%) (Auto) 13 % (0-9) Eosinophils (%) (Auto) 4 % (0-3) Basophils (%) (Auto) 0 % (0-3) Neutrophils # (Auto) 3.3 x10^3/uL (1.8-7.7) Lymphocytes # (Auto) 1.4 x10^3/uL (1.0-4.8) Monocytes # (Auto) 0.8 x10^3/uL (0.0-1.1) Eosinophils # (Auto) 0.2 x10^3/uL (0.0-0.7) Basophils # (Auto) 0.0 x10^3/uL (0.0-0.2) Sodium Level 141 mmol/L (136-145) Potassium Level 3.5 mmol/L (3.5-5.1) Chloride Level 108 mmol/L (98-107) Carbon Dioxide Level 28 mmol/L (21-32) Anion Gap 5 (6-14) Blood Urea Nitrogen 15 mg/dL (8-26) Creatinine 0.9 mg/dL (0.7-1.3) Estimated GFR (Cockcroft-Gault) 80.8 BUN/Creatinine Ratio 17 (6-20) Glucose Level 102 mg/dL (70-99) Calcium Level 7.6 mg/dL (8.5-10.1) Total Bilirubin 1.3 mg/dL (0.2-1.0) Aspartate Amino Transf (AST/SGOT) 24 U/L (15-37) Alanine Aminotransferase (ALT/SGPT) 17 U/L (16-63) Alkaline Phosphatase 56 U/L (46-116) Total Protein 5.9 g/dL (6.4-8.2) Albumin 2.4 g/dL (3.4-5.0) Albumin/Globulin Ratio 0.7 (1.0-1.7) Vitamin B12 Level 124 pg/mL (247-911) Laboratory Tests Test 07/27/20 16:00 07/28/20 05:03 Urine Collection Type Unknown Urine Color Twyla Urine Clarity Clear Urine pH 6.0 (<5.0-8.0) Urine Specific Navarro >=1.030 (1.000-1.030) Urine Protein 30 mg/dL (NEG-TRACE) Urine Glucose (UA) Negative mg/dL (NEG) Urine Ketones (Stick) >=80 mg/dL (NEG) Urine Blood Large (NEG) Urine Nitrite Negative (NEG) Urine Bilirubin Moderate (NEG) Urine Urobilinogen Dipstick 1.0 mg/dL (0.2 mg/dL) Urine Leukocyte Esterase Small (NEG) Urine RBC 11-20 /HPF (0-2) Urine WBC 5-10 /HPF (0-4) Urine Squamous Epithelial Cells Few /LPF Urine Bacteria Few /HPF (0-FEW) Urine Hyaline Casts Few /HPF Urine Mucus Marked /LPF White Blood Count 5.7 x10^3/uL (4.0-11.0) Red Blood Count 4.48 x10^6/uL (4.30-5.70) Hemoglobin 15.0 g/dL (13.0-17.5) Hematocrit 45.7 % (39.0-53.0) Mean Corpuscular Volume 102 fL (79-100) Mean Corpuscular Hemoglobin 34 pg (25-35) Mean Corpuscular Hemoglobin Concent 33 g/dL (31-37) Red Cell Distribution Width 15.4 % (11.5-14.5) Platelet Count 173 x10^3/uL (140-400) Neutrophils (%) (Auto) 58 % (31-73) Lymphocytes (%) (Auto) 25 % (24-48) Monocytes (%) (Auto) 13 % (0-9) Eosinophils (%) (Auto) 4 % (0-3) Basophils (%) (Auto) 0 % (0-3) Neutrophils # (Auto) 3.3 x10^3/uL (1.8-7.7) Lymphocytes # (Auto) 1.4 x10^3/uL (1.0-4.8) Monocytes # (Auto) 0.8 x10^3/uL (0.0-1.1) Eosinophils # (Auto) 0.2 x10^3/uL (0.0-0.7) Basophils # (Auto) 0.0 x10^3/uL (0.0-0.2) Sodium Level 141 mmol/L (136-145) Potassium Level 3.5 mmol/L (3.5-5.1) Chloride Level 108 mmol/L (98-107) Carbon Dioxide Level 28 mmol/L (21-32) Anion Gap 5 (6-14) Blood Urea Nitrogen 15 mg/dL (8-26) Creatinine 0.9 mg/dL (0.7-1.3) Estimated GFR (Cockcroft-Gault) 80.8 BUN/Creatinine Ratio 17 (6-20) Glucose Level 102 mg/dL (70-99) Calcium Level 7.6 mg/dL (8.5-10.1) Total Bilirubin 1.3 mg/dL (0.2-1.0) Aspartate Amino Transf (AST/SGOT) 24 U/L (15-37) Alanine Aminotransferase (ALT/SGPT) 17 U/L (16-63) Alkaline Phosphatase 56 U/L (46-116) Total Protein 5.9 g/dL (6.4-8.2) Albumin 2.4 g/dL (3.4-5.0) Albumin/Globulin Ratio 0.7 (1.0-1.7) Vitamin B12 Level 124 pg/mL (247-911) Medications Current Medications Iohexol (Omnipaque 350 Mg/ml) 75 ml 1X ONCE IV Last administered on 07/23/20at 08:57; Start 07/23/20 at 09:00; Stop 07/23/20 at 09:01; Status DC Info (CONTRAST GIVEN -- Rx MONITORING) 1 each PRN DAILY PRN MC SEE COMMENTS; Start 07/23/20 at 09:00; Stop 07/24/20 at 17:56; Status DC Acetaminophen (Tylenol) 650 mg PRN Q6HRS PRN PO TEMP > 100.3'F Last administered on 07/24/20at 20:16; Start 07/23/20 at 10:00 Aspirin (Ecotrin) 325 mg DAILYWBKFT PO Last administered on 07/28/20at 08:41; Start 07/24/20 at 08:00 Aspirin (Aspirin Rectal Supp) 300 mg PRN DAILY PRN NM IF UNABLE TO TAKE PO Last administered on 07/25/20at 12:48; Start 07/23/20 at 10:00 Clonidine HCl (Catapres) 0.3 mg Q8HRS PO ; Start 07/23/20 at 14:00; Stop 07/23/20 at 12:00; Status DC Labetalol HCl (Normodyne Iv Push) 10 mg PRN Q10MIN PRN IVP ELEVATED BP, SEE COMMENTS Last administered on 07/23/20at 12:11; Start 07/23/20 at 12:00 Clonidine HCl (Catapres) 0.3 mg PRN Q8HRS PRN PO HTN Last administered on 07/23/20at 21:00; Start 07/23/20 at 12:00 Clopidogrel Bisulfate (Plavix) 75 mg DAILYWBKFT PO Last administered on 07/28/20at 08:41; Start 07/23/20 at 14:15 Cefazolin Sodium/ Dextrose 50 ml @ 100 mls/hr 1X PREOP PRN IV PRIOR TO PROCEDURE Last administered on 07/24/20at 12:21; Start 07/24/20 at 06:00; Stop 07/24/20 at 18:00; Status DC Fentanyl Citrate (Fentanyl 2ml Vial) 25 mcg PRN Q5MIN PRN IVP MILD PAIN 1-3; Start 07/24/20 at 06:00; Stop 07/25/20 at 05:59; Status DC Fentanyl Citrate (Fentanyl 2ml Vial) 50 mcg PRN Q5MIN PRN IVP MODERATE PAIN 4- 6; Start 07/24/20 at 06:00; Stop 07/25/20 at 05:59; Status DC Morphine Sulfate (Morphine Sulfate) 1 mg PRN Q10MIN PRN IVP SEVERE PAIN 7-10; Start 07/24/20 at 06:00; Stop 07/25/20 at 05:59; Status DC Ringer's Solution 1,000 ml @ 30 mls/hr Q24H IV Last administered on 07/24/20at 11:40; Start 07/24/20 at 06:00; Stop 07/24/20 at 17:59; Status DC Hydromorphone HCl (Dilaudid) 0.5 mg PRN Q10MIN PRN IVP SEVERE PAIN 7-10, 2nd CHOICE; Start 07/24/20 at 06:00; Stop 07/25/20 at 05:59; Status DC Prochlorperazine Edisylate (Compazine) 5 mg PACU PRN PRN IVP NAUSEA, MRX1; Start 07/24/20 at 06:00; Stop 07/25/20 at 05:59; Status DC Losartan Potassium (Cozaar) 50 mg DAILY PO ; Start 07/24/20 at 09:00; Stop 07/23/20 at 16:24; Status DC Propranolol HCl (Inderal) 10 mg DAILY PO ; Start 07/24/20 at 09:00; Stop 07/23/20 at 16:24; Status DC Simvastatin (Zocor) 40 mg QHS PO Last administered on 07/27/20at 20:10; Start 07/23/20 at 21:00 Heparin Sodium (Porcine) 5000 unit/Ringer's Solution 505 ml @ 505 mls/hr 1X ONCE IRR Last administered on 07/24/20at 12:42; Start 07/24/20 at 06:00; Stop 07/24/20 at 06:59; Status DC Cefazolin Sodium 1 gm/Sodium Chloride 500 ml @ 500 mls/hr 1X ONCE IRR Last administered on 07/24/20at 12:42; Start 07/24/20 at 06:00; Stop 07/24/20 at 06:59; Status DC Losartan Potassium (Cozaar) 50 mg DAILY PO Last administered on 07/28/20at 08:41; Start 07/23/20 at 16:30 Propranolol HCl (Inderal) 10 mg DAILY PO Last administered on 07/28/20at 08:41; Start 07/23/20 at 16:30 Cellulose (Surgicel Fibrillar 1x2) 1 each STK-MED ONCE .ROUTE Last administered on 07/24/20at 13:38; Start 07/24/20 at 11:02; Stop 07/24/20 at 11:02; Status DC Lidocaine HCl (Xylocaine 1% Pf 30ml Vial) 30 ml STK-MED ONCE .ROUTE Last administered on 07/24/20at 12:42; Start 07/24/20 at 11:02; Stop 07/24/20 at 11 :02; Status DC Midazolam HCl (Versed) 2 mg STK-MED ONCE .ROUTE ; Start 07/24/20 at 12:00; Stop 07/24/20 at 12:00; Status DC Ropivacaine (Naropin 0.5%) 20 ml STK-MED ONCE .ROUTE ; Start 07/24/20 at 12:04; Stop 07/24/20 at 12:04; Status DC Lidocaine HCl (Xylocaine-Mpf 1% 2ml Vial) 2 ml STK-MED ONCE .ROUTE ; Start 07/24/20 at 12:05; Stop 07/24/20 at 12:06; Status DC Glycopyrrolate (Robinul) 1 mg STK-MED ONCE .ROUTE ; Start 07/24/20 at 13:04; Stop 07/24/20 at 13:04; Status DC Protamine Sulfate (Protamine) 50 mg STK-MED ONCE IV ; Start 07/24/20 at 13:39; Stop 07/24/20 at 13:39; Status DC Hydralazine HCl (Apresoline Inj) 20 mg STK-MED ONCE .ROUTE ; Start 07/24/20 at 13:46; Stop 07/24/20 at 13:46; Status DC Cefazolin Sodium/ Dextrose 50 ml @ 100 mls/hr Q8H IV Last administered on 07/25/20at 04:41; Start 07/24/20 at 20:30; Stop 07/25/20 at 04:59; Status DC Hydralazine HCl (Apresoline Inj) 10 mg PRN Q1HR PRN IVP ELEVATED BP, SEE COMMENTS Last administered on 07/27/20at 08:40; Start 07/24/20 at 14:30 Morphine Sulfate (Morphine Sulfate) 2 mg PRN Q2HR PRN IV PAIN Last administered on 07/25/20at 02:27; Start 07/24/20 at 14:30 Acetaminophen/ Hydrocodone Bitart (Lortab 5/325) 1 tab PRN Q4HRS PRN PO PAIN; Start 07/24/20 at 14:30; Status Cancel Iohexol (Omnipaque 350 Mg/ml) 75 ml 1X ONCE IV Last administered on 07/24/20at 15:40; Start 07/24/20 at 15:45; Stop 07/24/20 at 15:46; Status DC Info (CONTRAST GIVEN -- Rx MONITORING) 1 each PRN DAILY PRN MC SEE COMMENTS; Start 07/24/20 at 15:45; Stop 07/26/20 at 15:44; Status DC Lorazepam (Ativan Inj) 0.5 mg PRN Q3HRS PRN IVP ANXIETY / AGITATION Last administered on 07/26/20at 08:18; Start 07/25/20 at 23:30 Haloperidol Lactate (Haldol Inj) 1 mg PRN Q8HRS PRN IVP AGITATION Last administered on 07/26/20at 19:48; Start 07/26/20 at 00:15 Sodium Chloride 1,000 ml @ 80 mls/hr [id number] IV Last administered on 07/26/20at 11:10; Start 07/26/20 at 00:30; Stop 07/26/20 at 16:19; Status DC Ziprasidone (Geodon Im) 10 mg 1X ONCE IM Last administered on 07/26/20at 02:29; Start 07/26/20 at 02:30; Stop 07/26/20 at 02:31; Status DC Adenosine (Adenocard) 6 mg STK-MED ONCE IV ; Start 07/26/20 at 04:05; Stop 07/26/20 at 04:05; Status DC Enoxaparin Sodium (Lovenox 40mg Syringe) 40 mg Q24H SQ Last administered on 07/27/20at 14:19; Start 07/26/20 at 14:00 Dextrose/Sodium Chloride 1,000 ml @ 75 mls/hr [id number] IV Last administered on 07/28/20at 05:42; Start 07/26/20 at 14:30 Olanzapine (ZyPREXA) 2.5 mg 1X ONCE PO Last administered on 07/27/20at 14:30; Start 07/27/20 at 13:45; Stop 07/27/20 at 13:46; Status DC Adenosine (Adenocard) 6 mg STK-MED ONCE IV ; Start 07/26/20 at 04:05; Stop 07/28/20 at 08:20; Status DC Active Scripts Active Reported Calcium 500 + D Tablet (Calcium Carbonate/Vitamin D3) 1 Each Tablet 1 Tab PO DAILY 30 Days Aspirin Ec (Aspirin) 81 Mg Tablet.dr 1 Tab PO DAILY Losartan Potassium 50 Mg Tablet 1 Tab PO DAILY Furosemide 40 Mg Tablet 1 Tab PO DAILY Allopurinol 300 Mg Tablet 1 Tab PO DAILY Klor-Con M20 (Potassium Chloride) 20 Meq Tab.er.prt 1 Tab PO DAILY Simvastatin 40 Mg Tablet 1 Tab PO QHS Propranolol Hcl 10 Mg Tablet 10 Mg PO DAILY Vitals/I & O Vital Sign - Last 24 Hours 07/27/20 07/27/20 07/27/20 07/27/20 11:00 11:56 11:57 15:00 Temp 98.1 97.5 98.1 97.5 Pulse 102 102 102 87 Resp 16 18 B/P (MAP) 132/72 (92) 132/72 132/72 124/63 (83) Pulse Ox 93 91 O2 Delivery Room Air Room Air 07/27/20 07/27/20 07/27/20 07/27/20 18:55 18:55 19:06 22:18 Temp 98.0 98.2 98.0 98.2 Pulse 84 75 Resp 18 20 B/P (MAP) 90/53 (65) 107/57 (74) Pulse Ox 95 97 O2 Delivery Room Air Room Air Room Air Room Air 07/28/20 07/28/20 07/28/20 07/28/20 03:09 07:00 08:00 08:41 Temp 97.8 98.5 97.8 98.5 Pulse 70 73 73 Resp 16 18 B/P (MAP) 146/62 (90) 145/77 (99) 145/77 Pulse Ox 99 93 O2 Delivery Room Air Room Air Room Air 07/28/20 08:41 Pulse 73 B/P (MAP) 145/77 Intake and Output 07/27/20 07/27/20 07/28/20 15:00 23:00 07:00 Intake Total 1700 ml 0 ml Output Total 150 ml 1000 ml Balance 1550 ml -1000 ml Justicifation of Admission Dx: Justifications for Admission: Justification of Admission Dx: Yes MUNIR CHAN MD Jul 28, 2020 10:20
[2020-07-28 11:00] VITALS: BP 118/61
--- NOTE | 2020-07-28 14:15 | EEG ---
DATE OF SERVICE: 07/28/2020 EEG #: OBJECTIVE: The patient is an 80-year-old male with episodes of aphasia, rule out epileptic activity. DESCRIPTION: This is a digital study. Electrodes are placed according to the international 10-20 system. Bipolar and referential montages are available. Activation procedures typically include hyperventilation and intermittent photic stimulation. INTERPRETATION: The waking background consists of 9-10 Hz, 50-100 microvolt activity, symmetrically distributed over parietooccipital regions and reactive to eye opening. Hyperventilation and intermittent photic stimulation are noncontributory. Stage 1 sleep is achieved with normal electroencephalogram patterns. IMPRESSION: This electroencephalogram with the patient awake and asleep is within normal limits. There is no focal, paroxysmal, or epileptiform activity. Thank you for letting us help with the patient's care. MUNIR CHAN MD DR: ROB/robel JOB#: [id number] / [id number]
--- NOTE | 2020-07-28 14:16 | NUR ---
SS following up with discharge planning. SS reviewed pt chart and discussed with pt RN. Pt is currently on room air. Pt off 1:1. COVID19 negative. PT/OT recommended acute rehabilitation. SS met with pt in room to discuss discharge planning and acute rehabilitation. Pt reported that he was going to be fine at home. SS left voice message for pt's daughter, Malgorzata, to discuss discharge planning. Physician spoke with pt's daughter earlier today. SS will continue to follow for discharge planning.
[2020-07-28] MEDS: ENOXAPARIN 40 MG/0.4 ML SYRINGE. SQ SCH (14:32)
[2020-07-28 15:00] VITALS: BP 142/88
[2020-07-28 19:30] VITALS: BP 110/52
[2020-07-28] MEDS: SIMVASTATIN 40 MG TABLET. PO SCH (20:55)
[2020-07-28 23:00] VITALS: BP 152/88
[2020-07-29 03:10] VITALS: BP 168/80
[2020-07-29 07:00] VITALS: BP 156/80
[2020-07-29] MEDS: ASPIRIN ENTERIC COATED 325 MG TABLET.DR. PO SCH (08:28)
[2020-07-29] MEDS: PROPRANOLOL 10 MG TABLET. PO SCH (08:28)
[2020-07-29] MEDS: CLOPIDOGREL BISULFATE 75 MG TABLET PO SCH (08:29)
[2020-07-29] MEDS: LOSARTAN POTASSIUM 50 MG TABLET. PO SCH (08:29)
[2020-07-29] MEDS: IV DEXTROSE 5 %-0.45 % NACL 1,000 ML IV SCH (08:35)
--- NOTE | 2020-07-29 09:51 | PDOC ---
PROGRESS NOTES Date of Service DATE: 07/29/20 TIME: 09:49 Subjective Subjective Patient not brushing his teeth in the bathroom this morning minimal assistance. He reports doing well, no complaints overnight. Objective Objective Vital Signs Date Time Temp Pulse Resp B/P (MAP) Pulse Ox O2 Delivery O2 Flow Rate FiO2 07/29/20 08:29 93 156/80 07/29/20 08:00 Room Air 07/29/20 07:00 97.7 20 95 97.7 07/27/20 08:00 2.0 Intake and Output 07/29/20 07:00 Intake Total 2230 ml Output Total 1025 ml Balance 1205 ml Intake Oral 2230 ml Output Urine Total 1025 ml # Voids 2 # Bowel Movements 1 Physical Exam Physical Exam Awake, alert, up ambulating in room. Brushing teeth with right arm. Left neck incision is clean, dry, intact without significant swelling or erythema. Facial movements are symmetrical, speech is clear and fluent. Assessment Assessment Problems Medical Problems: (1) Carotid stenosis Status: Acute (2) Carotid stenosis, right Status: Acute (3) TIA (transient ischemic attack) Status: Acute Plan Plan of Care Stable following left carotid endarterectomy, okay to discharge from our standpoint once medically stable. He will continue aspirin and plavix per neurology. He will follow up with Dr. Pretty as scheduled and in discharge instructions. Comment Review of Relevant I have reviewed the following items radha (where applicable) has been applied. Labs Laboratory Tests Test 07/27/20 16:00 07/28/20 05:03 Urine Collection Type Unknown Urine Color Twyla Urine Clarity Clear Urine pH 6.0 (<5.0-8.0) Urine Specific [place] >=1.030 (1.000-1.030) Urine Protein 30 mg/dL (NEG-TRACE) Urine Glucose (UA) Negative mg/dL (NEG) Urine Ketones (Stick) >=80 mg/dL (NEG) Urine Blood Large (NEG) Urine Nitrite Negative (NEG) Urine Bilirubin Moderate (NEG) Urine Urobilinogen Dipstick 1.0 mg/dL (0.2 mg/dL) Urine Leukocyte Esterase Small (NEG) Urine RBC 11-20 /HPF (0-2) Urine WBC 5-10 /HPF (0-4) Urine Squamous Epithelial Cells Few /LPF Urine Bacteria Few /HPF (0-FEW) Urine Hyaline Casts Few /HPF Urine Mucus Marked /LPF White Blood Count 5.7 x10^3/uL (4.0-11.0) Red Blood Count 4.48 x10^6/uL (4.30-5.70) Hemoglobin 15.0 g/dL (13.0-17.5) Hematocrit 45.7 % (39.0-53.0) Mean Corpuscular Volume 102 fL (79-100) Mean Corpuscular Hemoglobin 34 pg (25-35) Mean Corpuscular Hemoglobin Concent 33 g/dL (31-37) Red Cell Distribution Width 15.4 % (11.5-14.5) Platelet Count 173 x10^3/uL (140-400) Neutrophils (%) (Auto) 58 % (31-73) Lymphocytes (%) (Auto) 25 % (24-48) Monocytes (%) (Auto) 13 % (0-9) Eosinophils (%) (Auto) 4 % (0-3) Basophils (%) (Auto) 0 % (0-3) Neutrophils # (Auto) 3.3 x10^3/uL (1.8-7.7) Lymphocytes # (Auto) 1.4 x10^3/uL (1.0-4.8) Monocytes # (Auto) 0.8 x10^3/uL (0.0-1.1) Eosinophils # (Auto) 0.2 x10^3/uL (0.0-0.7) Basophils # (Auto) 0.0 x10^3/uL (0.0-0.2) Sodium Level 141 mmol/L (136-145) Potassium Level 3.5 mmol/L (3.5-5.1) Chloride Level 108 mmol/L (98-107) Carbon Dioxide Level 28 mmol/L (21-32) Anion Gap 5 (6-14) Blood Urea Nitrogen 15 mg/dL (8-26) Creatinine 0.9 mg/dL (0.7-1.3) Estimated GFR (Cockcroft-Gault) 80.8 BUN/Creatinine Ratio 17 (6-20) Glucose Level 102 mg/dL (70-99) Calcium Level 7.6 mg/dL (8.5-10.1) Total Bilirubin 1.3 mg/dL (0.2-1.0) Aspartate Amino Transf (AST/SGOT) 24 U/L (15-37) Alanine Aminotransferase (ALT/SGPT) 17 U/L (16-63) Alkaline Phosphatase 56 U/L (46-116) Total Protein 5.9 g/dL (6.4-8.2) Albumin 2.4 g/dL (3.4-5.0) Albumin/Globulin Ratio 0.7 (1.0-1.7) Vitamin B12 Level 124 pg/mL (247-911) Microbiology 07/27/20 Urine Culture - Final, Complete Medications Current Medications Iohexol (Omnipaque 350 Mg/ml) 75 ml 1X ONCE IV Last administered on 07/23/20at 08:57; Start 07/23/20 at 09:00; Stop 07/23/20 at 09:01; Status DC Info (CONTRAST GIVEN -- Rx MONITORING) 1 each PRN DAILY PRN MC SEE COMMENTS; Start 07/23/20 at 09:00; Stop 07/24/20 at 17:56; Status DC Acetaminophen (Tylenol) 650 mg PRN Q6HRS PRN PO TEMP > 100.3'F Last administered on 07/24/20at 20:16; Start 07/23/20 at 10:00 Aspirin (Ecotrin) 325 mg DAILYWBKFT PO Last administered on 07/29/20at 08:28; Start 07/24/20 at 08:00 Aspirin (Aspirin Rectal Supp) 300 mg PRN DAILY PRN IN IF UNABLE TO TAKE PO Last administered on 07/25/20at 12:48; Start 07/23/20 at 10:00 Clonidine HCl (Catapres) 0.3 mg Q8HRS PO ; Start 07/23/20 at 14:00; Stop 07/23/20 at 12:00; Status DC Labetalol HCl (Normodyne Iv Push) 10 mg PRN Q10MIN PRN IVP ELEVATED BP, SEE COMMENTS Last administered on 07/23/20at 12:11; Start 07/23/20 at 12:00 Clonidine HCl (Catapres) 0.3 mg PRN Q8HRS PRN PO HTN Last administered on 07/23/20at 21:00; Start 07/23/20 at 12:00 Clopidogrel Bisulfate (Plavix) 75 mg DAILYWBKFT PO Last administered on 07/29/20at 08:29; Start 07/23/20 at 14:15 Cefazolin Sodium/ Dextrose 50 ml @ 100 mls/hr 1X PREOP PRN IV PRIOR TO PROCEDURE Last administered on 07/24/20at 12:21; Start 07/24/20 at 06:00; Stop 07/24/20 at 18:00; Status DC Fentanyl Citrate (Fentanyl 2ml Vial) 25 mcg PRN Q5MIN PRN IVP MILD PAIN 1-3; Start 07/24/20 at 06:00; Stop 07/25/20 at 05:59; Status DC Fentanyl Citrate (Fentanyl 2ml Vial) 50 mcg PRN Q5MIN PRN IVP MODERATE PAIN 4- 6; Start 07/24/20 at 06:00; Stop 07/25/20 at 05:59; Status DC Morphine Sulfate (Morphine Sulfate) 1 mg PRN Q10MIN PRN IVP SEVERE PAIN 7-10; Start 07/24/20 at 06:00; Stop 07/25/20 at 05:59; Status DC Ringer's Solution 1,000 ml @ 30 mls/hr Q24H IV Last administered on 07/24/20at 11:40; Start 07/24/20 at 06:00; Stop 07/24/20 at 17:59; Status DC Hydromorphone HCl (Dilaudid) 0.5 mg PRN Q10MIN PRN IVP SEVERE PAIN 7-10, 2nd CHOICE; Start 07/24/20 at 06:00; Stop 07/25/20 at 05:59; Status DC Prochlorperazine Edisylate (Compazine) 5 mg PACU PRN PRN IVP NAUSEA, MRX1; Start 07/24/20 at 06:00; Stop 07/25/20 at 05:59; Status DC Losartan Potassium (Cozaar) 50 mg DAILY PO ; Start 07/24/20 at 09:00; Stop 07/23/20 at 16:24; Status DC Propranolol HCl (Inderal) 10 mg DAILY PO ; Start 07/24/20 at 09:00; Stop 07/23/20 at 16:24; Status DC Simvastatin (Zocor) 40 mg QHS PO Last administered on 07/28/20at 20:55; Start 07/23/20 at 21:00 Heparin Sodium (Porcine) 5000 unit/Ringer's Solution 505 ml @ 505 mls/hr 1X ON CE IRR Last administered on 07/24/20at 12:42; Start 07/24/20 at 06:00; Stop 07/24/20 at 06:59; Status DC Cefazolin Sodium 1 gm/Sodium Chloride 500 ml @ 500 mls/hr 1X ONCE IRR Last administered on 07/24/20at 12:42; Start 07/24/20 at 06:00; Stop 07/24/20 at 06:59; Status DC Losartan Potassium (Cozaar) 50 mg DAILY PO Last administered on 07/29/20at 08:29; Start 07/23/20 at 16:30 Propranolol HCl (Inderal) 10 mg DAILY PO Last administered on 07/29/20at 08:28; Start 07/23/20 at 16:30 Cellulose (Surgicel Fibrillar 1x2) 1 each STK-MED ONCE .ROUTE Last administered on 07/24/20at 13:38; Start 07/24/20 at 11:02; Stop 07/24/20 at 11:02; Status DC Lidocaine HCl (Xylocaine 1% Pf 30ml Vial) 30 ml STK-MED ONCE .ROUTE Last administered on 07/24/20at 12:42; Start 07/24/20 at 11:02; Stop 07/24/20 at 11:02; Status DC Midazolam HCl (Versed) 2 mg STK-MED ONCE .ROUTE ; Start 07/24/20 at 12:00; Stop 07/24/20 at 12:00; Status DC Ropivacaine (Naropin 0.5%) 20 ml STK-MED ONCE .ROUTE ; Start 07/24/20 at 12:04; Stop 07/24/20 at 12:04; Status DC Lidocaine HCl (Xylocaine-Mpf 1% 2ml Vial) 2 ml STK-MED ONCE .ROUTE ; Start 07/24/20 at 12:05; Stop 07/24/20 at 12:06; Status DC Glycopyrrolate (Robinul) 1 mg STK-MED ONCE .ROUTE ; Start 07/24/20 at 13:04; Stop 07/24/20 at 13:04; Status DC Protamine Sulfate (Protamine) 50 mg STK-MED ONCE IV ; Start 07/24/20 at 13:39; Stop 07/24/20 at 13:39; Status DC Hydralazine HCl (Apresoline Inj) 20 mg STK-MED ONCE .ROUTE ; Start 07/24/20 at 13:46; Stop 07/24/20 at 13:46; Status DC Cefazolin Sodium/ Dextrose 50 ml @ 100 mls/hr Q8H IV Last administered on 07/25/20at 04:41; Start 07/24/20 at 20:30; Stop 07/25/20 at 04:59; Status DC Hydralazine HCl (Apresoline Inj) 10 mg PRN Q1HR PRN IVP ELEVATED BP, SEE COMMENTS Last administered on 07/27/20at 08:40; Start 07/24/20 at 14:30 Morphine Sulfate (Morphine Sulfate) 2 mg PRN Q2HR PRN IV PAIN Last administered on 07/25/20at 02:27; Start 07/24/20 at 14:30 Acetaminophen/ Hydrocodone Bitart (Lortab 5/325) 1 tab PRN Q4HRS PRN PO PAIN; Start 07/24/20 at 14:30; Status Cancel Iohexol (Omnipaque 350 Mg/ml) 75 ml 1X ONCE IV Last administered on 07/24/20at 15:40; Start 07/24/20 at 15:45; Stop 07/24/20 at 15:46; Status DC Info (CONTRAST GIVEN -- Rx MONITORING) 1 each PRN DAILY PRN MC SEE COMMENTS; Start 07/24/20 at 15:45; Stop 07/26/20 at 15:44; Status DC Lorazepam (Ativan Inj) 0.5 mg PRN Q3HRS PRN IVP ANXIETY / AGITATION Last administered on 07/26/20at 08:18; Start 07/25/20 at 23:30 Haloperidol Lactate (Haldol Inj) 1 mg PRN Q8HRS PRN IVP AGITATION Last administered on 07/26/20at 19:48; Start 07/26/20 at 00:15 Sodium Chloride 1,000 ml @ 80 mls/hr [id number] IV Last administered on 07/26/20at 11:10; Start 07/26/20 at 00:30; Stop 07/26/20 at 16:19; Status DC Ziprasidone (Geodon Im) 10 mg 1X ONCE IM Last administered on 07/26/20at 02:29; Start 07/26/20 at 02:30; Stop 07/26/20 at 02:31; Status DC Adenosine (Adenocard) 6 mg STK-MED ONCE IV ; Start 07/26/20 at 04:05; Stop 07/26/20 at 04:05; Status DC Enoxaparin Sodium (Lovenox 40mg Syringe) 40 mg Q24H SQ Last administered on 07/28/20at 14:32; Start 07/26/20 at 14:00 Dextrose/Sodium Chloride 1,000 ml @ 75 mls/hr [id number] IV Last administered on 07/28/20at 05:42; Start 07/26/20 at 14:30 Olanzapine (ZyPREXA) 2.5 mg 1X ONCE PO Last administered on 07/27/20at 14:30; Start 07/27/20 at 13:45; Stop 07/27/20 at 13:46; Status DC Adenosine (Adenocard) 6 mg STK-MED ONCE IV ; Start 07/26/20 at 04:05; Stop 07/28/20 at 08:20; Status DC Active Scripts Active Reported Calcium 500 + D Tablet (Calcium Carbonate/Vitamin D3) 1 Each Tablet 1 Tab PO DAILY 30 Days Aspirin Ec (Aspirin) 81 Mg Tablet.dr 1 Tab PO DAILY Losartan Potassium 50 Mg Tablet 1 Tab PO DAILY Furosemide 40 Mg Tablet 1 Tab PO DAILY Allopurinol 300 Mg Tablet 1 Tab PO DAILY Klor-Con M20 (Potassium Chloride) 20 Meq Tab.er.prt 1 Tab PO DAILY Simvastatin 40 Mg Tablet 1 Tab PO QHS Propranolol Hcl 10 Mg Tablet 10 Mg PO DAILY Vitals/I & O Vital Sign - Last 24 Hours 07/28/20 07/28/20 07/28/20 07/28/20 11:00 15:00 19:30 19:54 Temp 97.9 98.2 97.9 97.9 98.2 97.9 Pulse 65 75 86 Resp 20 18 18 B/P (MAP) 118/61 (80) 142/88 (106) 110/52 (71) Pulse Ox 95 95 95 O2 Delivery Room Air Room Air Room Air Room Air 07/28/20 07/29/20 07/29/20 07/29/20 23:00 03:10 07:00 08:00 Temp 97.7 97.7 97.7 97.7 97.7 97.7 Pulse 84 91 83 Resp 20 20 20 B/P (MAP) 152/88 (109) 168/80 (109) 156/80 (105) Pulse Ox 97 92 95 O2 Delivery Room Air Room Air Room Air Room Air 07/29/20 07/29/20 08:28 08:29 Pulse 93 93 B/P (MAP) 156/80 156/80 Intake and Output 07/28/20 07/28/20 07/29/20 15:00 23:00 07:00 Intake Total 1280 ml 650 ml 300 ml Output Total 500 ml 525 ml Balance 780 ml 125 ml 300 ml Justifications for Admission Other Justification PHILLY JACKMAN Jul 29, 2020 09:51
[2020-07-29] MEDS ORDERED: CLOP75TA PO ×2 (10:24→10:29)
--- NOTE | 2020-07-29 10:26 | PDOC ---
[facility] PROGRESS NOTE Date of Service DOS: DATE: 07/29/20 TIME: 10:21 Chief Complaint Chief Complaint A/P: Resolving transient ischemic attack, Hypertensive encephalopathy. Metabolic encephalopathy Severe dementia Severe left proximal internal carotid artery narrowing status post left CEA on 07/24/2020 home meds DVT prophylaxis. Full code. Appreciate Dr. Chan's consult. History of Present Illness History of Present Illness Mr Palmer is an 80-year-old male w/ PMHx dCHF, CAD s/p stenting and TIA s/p prior right carotid endarterectomy who has not taken his meds for a couple of months. He states he has not been able to follow up with his doctor. He presented with slurred speech and some mental status change, we noticed that his pressure is 217 systolic. He also had stroke symptoms, were concerned he could be having a stroke. MRI negative but CTA neck showed severe stenosis of the proximal left internal carotid artery. The right carotid artery is patent with no severe stenosis. Vascular surgery consulted and after symptoms resolved he underwent left carotid endarterectomy without significant events. 07/25: Was less responsive earlier, D/W DR CHAN? MRI. The patient is post left carotid endarterectomy since the previous examination. The stenosis involving the proximal left internal carotid artery has resolved. No area of stenosis or occlusion is seen. CTA NECK 07/26: He underwent MRI brain as well as CT arteriogram after the left carotid endarterectomy which did not reveal thrombus or new stroke. Patient had a gitative episodes. 07/27: Notes chronic swelling in left calf and foot ever since blood clot in left leg 7 years ago. 07/28: Much less confused. Off one-to-one sitter. Seen by neurology and vascular surgery okay for home but does need 24-hour supervision. No overnight events, no confusion. Plan: [facility] out Needs safe discharge, family will be home to care for him Plavix and ASA Vascular surgery follow up: Dr. Pretty on 08/11/2020 at 1230. [facility] [address] [address] [facility] [id number] in [address] parking garage. [phone] Vitals/I&O Vitals/I&O: Vital Signs Date Time Temp Pulse Resp B/P (MAP) Pulse Ox O2 Delivery O2 Flow Rate FiO2 07/29/20 08:29 93 156/80 07/29/20 08:00 Room Air 07/29/20 07:00 97.7 20 95 97.7 I & O 07/28/20 07/28/20 07/29/20 14:56 22:56 06:56 Intake Total 1280 ml 650 ml 300 ml Output Total 500 ml 525 ml Balance 780 ml 125 ml 300 ml Physical Exam Physical Exam: GENERAL: No apparent distress. Alert and oriented. HEENT: Normal cephalic atraumatic, external auditory canals are patent EYES: Extraocular muscles are intact, pupils are equally round and reactive to light and accommodation MUSCULOSKELETAL: Well developed, well nourished, good range of motion ENDOCRINE: No thyromegaly was palpated LYMPHATICS: No cervical chain or axillary nodes were noted HEMATOPOIETIC: No bruising NECK: Supple, no JVD, no thyromegaly was noted. LUNGS: Clear to auscultation in all lung freed without rhonchi or wheezing. HEART: RRR, S1, S2 present. Peripheral pulses intact, no obvious murmurs were noted. ABDOMEN: Soft, nontender. Positive bowel sounds no organomegaly, normal bowel sounds. EXTREMITIES: Without any cyanosis, clubbing, or edema. Pedal pulses intact, Homans sign is negative. NEUROLOGIC: Normal speech, normal tone. A & O x3, moves all extremities, no obvious focal deficits. PSYCHIATRIC: easily agitated SKIN: No ulcerations or rashes, good skin turgor, no jaundice. VASCULAR: Good capillary refill, neurovascular bundle appears to be intact. General: Alert, No acute distress Heart: Regular rate Lungs: Clear Abdomen: Soft, No tenderness Extremities: No cyanosis Assessment and Plan Assessmemt and Plan Problems Medical Problems: (1) Carotid stenosis Status: Acute (2) Carotid stenosis, right Status: Acute (3) TIA (transient ischemic attack) Status: Acute Comment Review of Relevant I have reviewed the following items radha (where applicable) has been applied. Justifications for Admission Other Justification ZOILA MCCABE MD Jul 29, 2020 10:26
--- NOTE | 2020-07-29 10:29 | PDOC3 ---
Discharge Summary Visit Information Date of Admission: Jul 23, 2020 Date of Discharge: Jul 29, 2020 Admitting Diagnosis: Right sided weakness Final Diagnosis Problems Medical Problems: (1) Carotid stenosis Status: Acute (2) Carotid stenosis, right Status: Acute (3) TIA (transient ischemic attack) Status: Acute Brief Hospital Course Allergies Allergies Coded Allergies Type Severity Reaction Last Updated Verified codeine Allergy Severe Anaphylaxis 07/23/20 Yes Vital Signs Vital Signs Date Time Temp Pulse Resp B/P (MAP) Pulse Ox O2 Delivery O2 Flow Rate FiO2 07/29/20 08:29 93 156/80 07/29/20 08:00 Room Air 07/29/20 07:00 97.7 20 95 97.7 Lab Results Laboratory Tests Test 07/27/20 16:00 07/28/20 05:03 Urine Collection Type Unknown Urine Color Twyla Urine Clarity Clear Urine pH 6.0 (<5.0-8.0) Urine Specific [place] >=1.030 (1.000-1.030) Urine Protein 30 mg/dL (NEG-TRACE) Urine Glucose (UA) Negative mg/dL (NEG) Urine Ketones (Stick) >=80 mg/dL (NEG) Urine Blood Large (NEG) Urine Nitrite Negative (NEG) Urine Bilirubin Moderate (NEG) Urine Urobilinogen Dipstick 1.0 mg/dL (0.2 mg/dL) Urine Leukocyte Esterase Small (NEG) Urine RBC 11-20 /HPF (0-2) Urine WBC 5-10 /HPF (0-4) Urine Squamous Epithelial Cells Few /LPF Urine Bacteria Few /HPF (0-FEW) Urine Hyaline Casts Few /HPF Urine Mucus Marked /LPF White Blood Count 5.7 x10^3/uL (4.0-11.0) Red Blood Count 4.48 x10^6/uL (4.30-5.70) Hemoglobin 15.0 g/dL (13.0-17.5) Hematocrit 45.7 % (39.0-53.0) Mean Corpuscular Volume 102 fL (79-100) Mean Corpuscular Hemoglobin 34 pg (25-35) Mean Corpuscular Hemoglobin Concent 33 g/dL (31-37) Red Cell Distribution Width 15.4 % (11.5-14.5) Platelet Count 173 x10^3/uL (140-400) Neutrophils (%) (Auto) 58 % (31-73) Lymphocytes (%) (Auto) 25 % (24-48) Monocytes (%) (Auto) 13 % (0-9) Eosinophils (%) (Auto) 4 % (0-3) Basophils (%) (Auto) 0 % (0-3) Neutrophils # (Auto) 3.3 x10^3/uL (1.8-7.7) Lymphocytes # (Auto) 1.4 x10^3/uL (1.0-4.8) Monocytes # (Auto) 0.8 x10^3/uL (0.0-1.1) Eosinophils # (Auto) 0.2 x10^3/uL (0.0-0.7) Basophils # (Auto) 0.0 x10^3/uL (0.0-0.2) Sodium Level 141 mmol/L (136-145) Potassium Level 3.5 mmol/L (3.5-5.1) Chloride Level 108 mmol/L (98-107) Carbon Dioxide Level 28 mmol/L (21-32) Anion Gap 5 (6-14) Blood Urea Nitrogen 15 mg/dL (8-26) Creatinine 0.9 mg/dL (0.7-1.3) Estimated GFR (Cockcroft-Gault) 80.8 BUN/Creatinine Ratio 17 (6-20) Glucose Level 102 mg/dL (70-99) Calcium Level 7.6 mg/dL (8.5-10.1) Total Bilirubin 1.3 mg/dL (0.2-1.0) Aspartate Amino Transf (AST/SGOT) 24 U/L (15-37) Alanine Aminotransferase (ALT/SGPT) 17 U/L (16-63) Alkaline Phosphatase 56 U/L (46-116) Total Protein 5.9 g/dL (6.4-8.2) Albumin 2.4 g/dL (3.4-5.0) Albumin/Globulin Ratio 0.7 (1.0-1.7) Vitamin B12 Level 124 pg/mL (247-911) Brief Hospital Course Mr Palmer is an 80-year-old male w/ PMHx dCHF, CAD s/p stenting and TIA s/p prior right carotid endarterectomy who has not taken his meds for a couple of months. He states he has not been able to follow up with his doctor. He presented with slurred speech and some mental status change, we noticed that his pressure is 217 systolic. He also had stroke symptoms, were concerned he could be having a stroke. MRI negative but CTA neck showed severe stenosis of the proximal left internal carotid artery. The right carotid artery is patent with no severe stenosis. Vascular surgery consulted and after symptoms resolved he underwent left carotid endarterectomy without significant events. 07/25: Was less responsive earlier, D/W DR CHAN? MRI. The patient is post left carotid endarterectomy since the previous examination. The stenosis involving the proximal left internal carotid artery has resolved. No area of stenosis or occlusion is seen. CTA NECK 07/26: He underwent MRI brain as well as CT arteriogram after the left carotid endarterectomy which did not reveal thrombus or new stroke. Patient had agitative episodes. 07/27: Notes chronic swelling in left calf and foot ever since blood clot in left leg 7 years ago. 07/28: Much less confused. Off one-to-one sitter. Seen by neurology and vascular surgery okay for home but does need 24-hour supervision. No overnight events, no confusion. Plan: [facility] out Needs safe discharge, family will be home to care for him Plavix and ASA Vascular surgery follow up: Dr. Pretty on 08/11/2020 at 1230. At medical office [address], [address] [facility], [address]. Can [address] in [address] parking garage. [phone] Problem list: Resolving transient ischemic attack, Hypertensive encephalopathy. Metabolic encephalopathy Severe dementia Severe left proximal internal carotid artery narrowing status post left CEA on 07/24/2020 Greater than 30 minutes spent on d/c home with home health Discharge Information Condition at Discharge: Improved Follow Up: Weeks (1) Disposition/Orders: D/C to Home w/ HH Scheduled Allopurinol (Allopurinol) 300 Mg Tablet, 1 TAB PO DAILY for gout, (Reported) Entered as Reported by: DRE STERLING on 07/23/201329 Last Action: New Order on 07/23/201329 by DRE STERLING Aspirin (Aspirin Ec) 81 Mg Tablet., 1 TAB PO DAILY for heart, #30 Ref 3 (Reported) Entered as Reported by: DRE STERLING on 07/23/20 135 Last Action: New Order on 07/23/201353 by DRE STERLING Calcium Carbonate/Vitamin D3 (Calcium 500 + D Tablet) 1 Each Tablet, 1 TAB PO DAILY for supplement for 30 Days, #30 Ref 0 (Reported) Entered as Reported by: DRE STERLING on 07/23/201353 Last Action: New Order on 07/23/201353 by DRE STERLING Clopidogrel Bisulfate (Clopidogrel) 75 Mg Tablet, 75 MG PO DAILYWBKFT for Carotid artery disease for 90 Days, #90 Ref 3 Prescribed by: ZOILA MCCABE MD on 07/29/20 1024 Furosemide (Furosemide) 40 Mg Tablet, 1 TAB PO DAILY for CHF, (Reported) Entered as Reported by: DRE STERLING on 07/23/201329 Last Action: New Order on 07/23/201329 by DRE STERLING Losartan Potassium (Losartan Potassium) 50 Mg Tablet, 1 TAB PO DAILY for blood pressure, (Reported) Entered as Reported by: DRE STERLING on 07/23/201329 Last Action: Continued on 07/23/201436 by DRE SETRLING Potassium Chloride (Klor-Con M20) 20 Meq Tab.er.prt, 1 TAB PO DAILY for supplement, (Reported) Entered as Reported by: DRE STERLING on 07/23/201329 Last Action: New Order on 07/23/201329 by DRE STERLING Propranolol Hcl (Propranolol Hcl) 10 Mg Tablet, 10 MG PO DAILY for blood pressure, (Reported) Entered as Reported by: DRE STERLING on 07/23/201329 Last Action: Continued on 07/23/201436 by DRE STERLING Simvastatin (Simvastatin) 40 Mg Tablet, 1 TAB PO QHS for cholesterol, (Reported) Entered as Reported by: DRE STERLING on 07/23/201329 Last Action: Continued on 07/23/201436 by DRE STERLING Justicifation of Admission Dx: Justifications for Admission: Justification of Admission Dx: Yes ZOILA MCCABE MD Jul 29, 2020 10:29
--- NOTE | 2020-07-29 10:30 | SNU/HH DC ---
DISCHARGE WITH HOME HEALTH DISCHARGE INFORMATION: Discharge Date: Jul 29, 2020 Final Diagnosis: Problems Medical Problems: (1) Carotid stenosis Status: Acute (2) Carotid stenosis, right Status: Acute (3) TIA (transient ischemic attack) Status: Acute Condition on Discharge: Stable CODE STATUS: Code Status: Full HOME HEALTH: Face to Face: I certify this patient is under my care and that I, or a nurse practitioner or physician's prosthetics assistant working with me, had a face to face encounter that meets the physician face to face encounter requirements with this patient on 07/29/2020. Medical Complications: Other (CVA) Alf For: Medication Management RN For Eval/Treatment: Yes Physical Therapy For: Evalulation/Treatment Occupational Therapy For: Evaluation/Treatment Pt Meets Homebound Status: Extreme weakness w/ amb., Limited distance walking POST DISCHARGE ORDERS: Activity Instructions for Disc: Resume previous activity Weight Bearing Status after Di: Full weight bearing DIET AFTER DISCHARGE: Cardiac CHECKS AFTER DISCHARGE: Checks after discharge: Check blood press - daily, Check blood sugar, ac/hs, Check your Temp as needed FOLLOW-UP: Additional Instructions: Vascular surgery follow up: Dr. Pretty on 08/11/2020 at 1230. At medical office [address], [address] [facility], [id number] in [address] parking garage. [phone] CERTIFICATION STATEMENT: Certification Statement: Certification Statement: Based on the above finding, I certify that this patient is confined to the home and needs intermittent [facility] care, physical therapy and/or speech therapy, or continues to need occupational therapy.~ This patient is under my care, and I have initiated the establishment of the plan of care.~ This patient will be followed by myself or a community physician who will periodically review the plan of care. Home Meds Active Scripts Clopidogrel Bisulfate (CLOPIDOGREL) 75 Mg Tablet, 1 TAB PO DAILY for CVA for 7 Days, #7 TAB 0 Refills Emergency fill while awaiting mail order Prov:ZOILA MCCABE MD 07/29/20 Clopidogrel Bisulfate (CLOPIDOGREL) 75 Mg Tablet, 75 MG PO DAILYWBKFT for Ca rotid artery disease for 90 Days, #90 TAB 3 Refills Prov:ZOILA MCCABE MD 07/29/20 Reported Medications Calcium Carbonate/Vitamin D3 (CALCIUM 500 + D TABLET) 1 Each Tablet, 1 TAB PO DAILY for supplement for 30 Days, #30 TAB 0 Refills 07/23/20 Aspirin (ASPIRIN EC) 81 Mg Tablet.dr, 1 TAB PO DAILY for heart, #30 TAB 3 Refills 07/23/20 Losartan Potassium (Losartan Potassium) 50 Mg Tablet, 1 TAB PO DAILY for blood pressure 07/23/20 Furosemide (FUROSEMIDE) 40 Mg Tablet, 1 TAB PO DAILY for CHF 07/23/20 Allopurinol (ALLOPURINOL) 300 Mg Tablet, 1 TAB PO DAILY for gout 07/23/20 Potassium Chloride (KLOR-CON M20) 20 Meq Tab.er.prt, 1 TAB PO DAILY for supplement 07/23/20 Simvastatin (SIMVASTATIN) 40 Mg Tablet, 1 TAB PO QHS for cholesterol 07/23/20 Propranolol Hcl (PROPRANOLOL HCL) 10 Mg Tablet, 10 MG PO DAILY for blood pressure 07/23/20 ZOILA MCCABE MD Jul 29, 2020 10:30
--- NOTE | 2020-07-29 10:43 | NUR ---
SS following up with discharge planning. SS reviewed pt chart and discussed with pt RN. Pt is currently on room air. COVID19 negative. PT/OT recommended acute rehabilitation. Pt currently refusing acute rehabilitation. SS spoke with pt's daughter, Malgorzata, , who also spoke with pt and pt continuing to refuse acute rehabilitation. Pt and pt's daughter agreeable to home healthcare at this time with [facility], ; fax [phone]. Pt's daughter was given options for private duty services if help is needed at home. Discharge orders received for home healthcare. Orders and referral was sent to [facility]. Physician discussed with pt's daughter. Pt's RN notified.
[2020-07-29 11:00] VITALS: BP 88/58
--- NOTE | 2020-07-29 11:34 | PDOC ---
PROGRESS NOTES Date of Service DATE: 07/29/20 TIME: 11:31 Assessment Problems Medical Problems: (1) Carotid stenosis Status: Acute (2) Carotid stenosis, right Status: Acute (3) TIA (transient ischemic attack) Status: Acute Episodes of aphasia, has had 2 of each: CT angiogram, head CT, MRI. Differential diagnosis includes TIA due to carotid disease, but that has been corrected, complicated migraines, hypertensive encephalopathy, partial seizures (EEG negative), stress reaction, onset of frontal dementia with aphasia Was encephalopathic, may be too much sedation, fine now Status-post left endarterectomy. History of right carotid endarterectomy Very favorable lipid profile Plan Aspirin and clopidogrel Statin, does not need high-dose Okay for discharge He will need a family member to stay with him the first few days Follow-up with me or my nurse practitioner in 4-6 weeks Discussed with niece Subjective no complaints Objective Vital Signs Date Time Temp Pulse Resp B/P (MAP) Pulse Ox O2 Delivery O2 Flow Rate FiO2 07/29/20 11:00 97.9 70 20 88/58 (68) 97 Room Air 97.9 Intake and Output 07/29/20 07:00 Intake Total 2230 ml Output Total 1025 ml Balance 1205 ml Intake Oral 2230 ml Output Urine Total 1025 ml # Voids 2 # Bowel Movements 1 PHYSICAL EXAM Alert. Oriented to time, place and person. Speech is fluent PERRL. EOMI. CN: no focal findings. Muscle tone: normal. Muscle strength: 5/5 DTR: 2+ Plantar reflex: Flexor Gait: not examined in bed. Sensory exam: no abnormal findings. No cerebellar signs elicited. Review of Relevant I have reviewed the following items radha (where applicable) has been applied. Labs Laboratory Tests Test 07/27/20 16:00 07/28/20 05:03 Urine Collection Type Unknown Urine Color Twyla Urine Clarity Clear Urine pH 6.0 (<5.0-8.0) Urine Specific Holden >=1.030 (1.000-1.030) Urine Protein 30 mg/dL (NEG-TRACE) Urine Glucose (UA) Negative mg/dL (NEG) Urine Ketones (Stick) >=80 mg/dL (NEG) Urine Blood Large (NEG) Urine Nitrite Negative (NEG) Urine Bilirubin Moderate (NEG) Urine Urobilinogen Dipstick 1.0 mg/dL (0.2 mg/dL) Urine Leukocyte Esterase Small (NEG) Urine RBC 11-20 /HPF (0-2) Urine WBC 5-10 /HPF (0-4) Urine Squamous Epithelial Cells Few /LPF Urine Bacteria Few /HPF (0-FEW) Urine Hyaline Casts Few /HPF Urine Mucus Marked /LPF White Blood Count 5.7 x10^3/uL (4.0-11.0) Red Blood Count 4.48 x10^6/uL (4.30-5.70) Hemoglobin 15.0 g/dL (13.0-17.5) Hematocrit 45.7 % (39.0-53.0) Mean Corpuscular Volume 102 fL (79-100) Mean Corpuscular Hemoglobin 34 pg (25-35) Mean Corpuscular Hemoglobin Concent 33 g/dL (31-37) Red Cell Distribution Width 15.4 % (11.5-14.5) Platelet Count 173 x10^3/uL (140-400) Neutrophils (%) (Auto) 58 % (31-73) Lymphocytes (%) (Auto) 25 % (24-48) Monocytes (%) (Auto) 13 % (0-9) Eosinophils (%) (Auto) 4 % (0-3) Basophils (%) (Auto) 0 % (0-3) Neutrophils # (Auto) 3.3 x10^3/uL (1.8-7.7) Lymphocytes # (Auto) 1.4 x10^3/uL (1.0-4.8) Monocytes # (Auto) 0.8 x10^3/uL (0.0-1.1) Eosinophils # (Auto) 0.2 x10^3/uL (0.0-0.7) Basophils # (Auto) 0.0 x10^3/uL (0.0-0.2) Sodium Level 141 mmol/L (136-145) Potassium Level 3.5 mmol/L (3.5-5.1) Chloride Level 108 mmol/L (98-107) Carbon Dioxide Level 28 mmol/L (21-32) Anion Gap 5 (6-14) Blood Urea Nitrogen 15 mg/dL (8-26) Creatinine 0.9 mg/dL (0.7-1.3) Estimated GFR (Cockcroft-Gault) 80.8 BUN/Creatinine Ratio 17 (6-20) Glucose Level 102 mg/dL (70-99) Calcium Level 7.6 mg/dL (8.5-10.1) Total Bilirubin 1.3 mg/dL (0.2-1.0) Aspartate Amino Transf (AST/SGOT) 24 U/L (15-37) Alanine Aminotransferase (ALT/SGPT) 17 U/L (16-63) Alkaline Phosphatase 56 U/L (46-116) Total Protein 5.9 g/dL (6.4-8.2) Albumin 2.4 g/dL (3.4-5.0) Albumin/Globulin Ratio 0.7 (1.0-1.7) Vitamin B12 Level 124 pg/mL (247-911) Microbiology 07/27/20 Urine Culture - Final, Complete Medications Current Medications Iohexol (Omnipaque 350 Mg/ml) 75 ml 1X ONCE IV Last administered on 07/23/20at 08:57; Start 07/23/20 at 09:00; Stop 07/23/20 at 09:01; Status DC Info (CONTRAST GIVEN -- Rx MONITORING) 1 each PRN DAILY PRN MC SEE COMMENTS; Start 07/23/20 at 09:00; Stop 07/24/20 at 17:56; Status DC Acetaminophen (Tylenol) 650 mg PRN Q6HRS PRN PO TEMP > 100.3'F Last administered on 07/24/20at 20:16; Start 07/23/20 at 10:00 Aspirin (Ecotrin) 325 mg DAILYWBKFT PO Last administered on 07/29/20at 08:28; Start 07/24/20 at 08:00 Aspirin (Aspirin Rectal Supp) 300 mg PRN DAILY PRN MT IF UNABLE TO TAKE PO Last administered on 07/25/20at 12:48; Start 07/23/20 at 10:00 Clonidine HCl (Catapres) 0.3 mg Q8HRS PO ; Start 07/23/20 at 14:00; Stop 07/23/20 at 12:00; Status DC Labetalol HCl (Normodyne Iv Push) 10 mg PRN Q10MIN PRN IVP ELEVATED BP, SEE COMMENTS Last administered on 07/23/20at 12:11; Start 07/23/20 at 12:00 Clonidine HCl (Catapres) 0.3 mg PRN Q8HRS PRN PO HTN Last administered on 07/23/20at 21:00; Start 07/23/20 at 12:00 Clopidogrel Bisulfate (Plavix) 75 mg DAILYWBKFT PO Last administered on 07/29/20at 08:29; Start 07/23/20 at 14:15 Cefazolin Sodium/ Dextrose 50 ml @ 100 mls/hr 1X PREOP PRN IV PRIOR TO PROCEDURE Last administered on 07/24/20at 12:21; Start 07/24/20 at 06:00; Stop 07/24/20 at 18:00; Status DC Fentanyl Citrate (Fentanyl 2ml Vial) 25 mcg PRN Q5MIN PRN IVP MILD PAIN 1-3; Start 07/24/20 at 06:00; Stop 07/25/20 at 05:59; Status DC Fentanyl Citrate (Fentanyl 2ml Vial) 50 mcg PRN Q5MIN PRN IVP MODERATE PAIN 4- 6; Start 07/24/20 at 06:00; Stop 07/25/20 at 05:59; Status DC Morphine Sulfate (Morphine Sulfate) 1 mg PRN Q10MIN PRN IVP SEVERE PAIN 7-10; Start 07/24/20 at 06:00; Stop 07/25/20 at 05:59; Status DC Ringer's Solution 1,000 ml @ 30 mls/hr Q24H IV Last administered on 07/24/20at 11:40; Start 07/24/20 at 06:00; Stop 07/24/20 at 17:59; Status DC Hydromorphone HCl (Dilaudid) 0.5 mg PRN Q10MIN PRN IVP SEVERE PAIN 7-10, 2nd CHOICE; Start 07/24/20 at 06:00; Stop 07/25/20 at 05:59; Status DC Prochlorperazine Edisylate (Compazine) 5 mg PACU PRN PRN IVP NAUSEA, MRX1; Start 07/24/20 at 06:00; Stop 07/25/20 at 05:59; Status DC Losartan Potassium (Cozaar) 50 mg DAILY PO ; Start 07/24/20 at 09:00; Stop 07/23/20 at 16:24; Status DC Propranolol HCl (Inderal) 10 mg DAILY PO ; Start 07/24/20 at 09:00; Stop 07/23/20 at 16:24; Status DC Simvastatin (Zocor) 40 mg QHS PO Last administered on 07/28/20at 20:55; Start 07/23/20 at 21:00 Heparin Sodium (Porcine) 5000 unit/Ringer's Solution 505 ml @ 505 mls/hr 1X ONCE IRR Last administered on 07/24/20at 12:42; Start 07/24/20 at 06:00; Stop 07/24/20 at 06:59; Status DC Cefazolin Sodium 1 gm/Sodium Chloride 500 ml @ 500 mls/hr 1X ONCE IRR Last administered on 07/24/20at 12:42; Start 07/24/20 at 06:00; Stop 07/24/20 at 06:59; Status DC Losartan Potassium (Cozaar) 50 mg DAILY PO Last administered on 07/29/20at 08:29; Start 07/23/20 at 16:30 Propranolol HCl (Inderal) 10 mg DAILY PO Last administered on 07/29/20at 08:28; Start 07/23/20 at 16:30 Cellulose (Surgicel Fibrillar 1x2) 1 each STK-MED ONCE .ROUTE Last administered on 07/24/20at 13:38; Start 07/24/20 at 11:02; Stop 07/24/20 at 11:02; Status DC Lidocaine HCl (Xylocaine 1% Pf 30ml Vial) 30 ml STK-MED ONCE .ROUTE Last administered on 07/24/20at 12:42; Start 07/24/20 at 11:02; Stop 07/24/20 at 11:02; Status DC Midazolam HCl (Versed) 2 mg STK-MED ONCE .ROUTE ; Start 07/24/20 at 12:00; Stop 07/24/20 at 12:00; Status DC Ropivacaine (Naropin 0.5%) 20 ml STK-MED ONCE .ROUTE ; Start 07/24/20 at 12:04; Stop 07/24/20 at 12:04; Status DC Lidocaine HCl (Xylocaine-Mpf 1% 2ml Vial) 2 ml STK-MED ONCE .ROUTE ; Start 07/24/20 at 12:05; Stop 07/24/20 at 12:06; Status DC Glycopyrrolate (Robinul) 1 mg STK-MED ONCE .ROUTE ; Start 07/24/20 at 13:04; Stop 07/24/20 at 13:04; Status DC Protamine Sulfate (Protamine) 50 mg STK-MED ONCE IV ; Start 07/24/20 at 13:39; Stop 07/24/20 at 13:39; Status DC Hydralazine HCl (Apresoline Inj) 20 mg STK-MED ONCE .ROUTE ; Start 07/24/20 at 13:46; Stop 07/24/20 at 13:46; Status DC Cefazolin Sodium/ Dextrose 50 ml @ 100 mls/hr Q8H IV Last administered on 07/25/20at 04:41; Start 07/24/20 at 20:30; Stop 07/25/20 at 04:59; Status DC Hydralazine HCl (Apresoline Inj) 10 mg PRN Q1HR PRN IVP ELEVATED BP, SEE COMMENTS Last administered on 07/27/20at 08:40; Start 07/24/20 at 14:30 Morphine Sulfate (Morphine Sulfate) 2 mg PRN Q2HR PRN IV PAIN Last administered on 07/25/20at 02:27; Start 07/24/20 at 14:30 Acetaminophen/ Hydrocodone Bitart (Lortab 5/325) 1 tab PRN Q4HRS PRN PO PAIN; Start 07/24/20 at 14:30; Status Cancel Iohexol (Omnipaque 350 Mg/ml) 75 ml 1X ONCE IV Last administered on 07/24/20at 15:40; Start 07/24/20 at 15:45; Stop 07/24/20 at 15:46; Status DC Info (CONTRAST GIVEN -- Rx MONITORING) 1 each PRN DAILY PRN MC SEE COMMENTS; Start 07/24/20 at 15:45; Stop 07/26/20 at 15:44; Status DC Lorazepam (Ativan Inj) 0.5 mg PRN Q3HRS PRN IVP ANXIETY / AGITATION Last admi nistered on 07/26/20at 08:18; Start 07/25/20 at 23:30 Haloperidol Lactate (Haldol Inj) 1 mg PRN Q8HRS PRN IVP AGITATION Last adm inistered on 07/26/20at 19:48; Start 07/26/20 at 00:15 Sodium Chloride 1,000 ml @ 80 mls/hr [id number] IV Last administered on 07/26/20at 11:10; Start 07/26/20 at 00:30; Stop 07/26/20 at 16:19; Status DC Ziprasidone (Geodon Im) 10 mg 1X ONCE IM Last administered on 07/26/20at 02:29; Start 07/26/20 at 02:30; Stop 07/26/20 at 02:31; Status DC Adenosine (Adenocard) 6 mg STK-MED ONCE IV ; Start 07/26/20 at 04:05; Stop 07/26/20 at 04:05; Status DC Enoxaparin Sodium (Lovenox 40mg Syringe) 40 mg Q24H SQ Last administered on 07/28/20at 14:32; Start 07/26/20 at 14:00 Dextrose/Sodium Chloride 1,000 ml @ 75 mls/hr [id number] IV Last administered on 07/28/20at 05:42; Start 07/26/20 at 14:30 Olanzapine (ZyPREXA) 2.5 mg 1X ONCE PO Last administered on 07/27/20at 14:30; Start 07/27/20 at 13:45; Stop 07/27/20 at 13:46; Status DC Adenosine (Adenocard) 6 mg STK-MED ONCE IV ; Start 07/26/20 at 04:05; Stop 07/28/20 at 08:20; Status DC Active Scripts Active Clopidogrel (Clopidogrel Bisulfate) 75 Mg Tablet 1 Tab PO DAILY 7 Days Emergency fill while awaiting mail order Clopidogrel (Clopidogrel Bisulfate) 75 Mg Tablet 75 Mg PO DAILYWBKFT 90 Days Reported Calcium 500 + D Tablet (Calcium Carbonate/Vitamin D3) 1 Each Tablet 1 Tab PO DAILY 30 Days Aspirin Ec (Aspirin) 81 Mg Tablet.dr 1 Tab PO DAILY Losartan Potassium 50 Mg Tablet 1 Tab PO DAILY Furosemide 40 Mg Tablet 1 Tab PO DAILY Allopurinol 300 Mg Tablet 1 Tab PO DAILY Klor-Con M20 (Potassium Chloride) 20 Meq Tab.er.prt 1 Tab PO DAILY Simvastatin 40 Mg Tablet 1 Tab PO QHS Propranolol Hcl 10 Mg Tablet 10 Mg PO DAILY Vitals/I & O Vital Sign - Last 24 Hours 07/28/20 07/28/20 07/28/20 07/28/20 15:00 19:30 19:54 23:00 Temp 98.2 97.9 97.7 98.2 97.9 97.7 Pulse 75 86 84 Resp 18 18 20 B/P (MAP) 142/88 (106) 110/52 (71) 152/88 (109) Pulse Ox 95 95 97 O2 Delivery Room Air Room Air Room Air Room Air 07/29/20 07/29/20 07/29/20 07/29/20 03:10 07:00 08:00 08:28 Temp 97.7 97.7 97.7 97.7 Pulse 91 83 93 Resp 20 20 B/P (MAP) 168/80 (109) 156/80 (105) 156/80 Pulse Ox 92 95 O2 Delivery Room Air Room Air Room Air 07/29/20 07/29/20 08:29 11:00 Temp 97.9 97.9 Pulse 93 70 Resp 20 B/P (MAP) 156/80 88/58 (68) Pulse Ox 97 O2 Delivery Room Air Intake and Output 07/28/20 07/28/20 07/29/20 15:00 23:00 07:00 Intake Total 1280 ml 650 ml 300 ml Output Total 500 ml 525 ml Balance 780 ml 125 ml 300 ml Justicifation of Admission Dx: Justifications for Admission: Justification of Admission Dx: Yes MUNIR CHAN MD Jul 29, 2020 11:34
--- NOTE | 2020-07-29 13:45 | NUR ---
Discharge Note: BLUE HODGES [address] Discharge instructions and discharge home medications reviewed with Patient and a copy given. All questions have been answered and understanding verbalized. Patient given information on follow up appointment with Vascular and Primary Care Physician. All belongings taken with patient upon discharge. Incision and sutures to left lateral neck clean, dry, and intact. No drainage or swelling noted. The following instructions and handouts were given: Carotid Endarterectomy After Care, Plavix, and TIA Discontinued lines and drains: Peripheral IV intact. Patient discharged to Home w/services with Family Member via Wheelchair
== END 2020-07-29 14:17 | disposition home health service (06) | DRG 37 ==
LOC: ER 08:37 → 5 NORTH 09:23 → 2 NORTH 10:43 → 1 WEST ICU 07-24 15:13 → 2 NORTH 07-25 17:54 → 2 SOUTH 07-25 17:58
PROVIDERS: ADMIT Internal Medicine; ATTEND Internal Medicine
PROC: 03CN0ZZ Extirpation of Matter from Left External Carotid Artery, Open Approach (ICD-10-PCS; 2020-07-24)
PROC: 03CL0ZZ Extirpation of Matter from Left Internal Carotid Artery, Open Approach (ICD-10-PCS; 2020-07-24)
PROC: 03CJ0ZZ Extirpation of Matter from Left Common Carotid Artery, Open Approach (ICD-10-PCS; principal; 2020-07-24 12:30)
DX: I65.23 Occlusion and stenosis of bilateral carotid arteries (principal); G93.41 Metabolic encephalopathy; R47.01 Aphasia; I11.0 Hypertensive heart disease with heart failure; I73.9 Peripheral vascular disease, unspecified; E78.5 Hyperlipidemia, unspecified; F03.90 Unspecified dementia, unspecified severity, without behavioral disturbance, psychotic disturbance, mood disturbance, and anxiety; G43.909 Migraine, unspecified, not intractable, without status migrainosus; I25.10 Atherosclerotic heart disease of native coronary artery without angina pectoris; F41.9 Anxiety disorder, unspecified; G43.109 Migraine with aura, not intractable, without status migrainosus; M10.9 Gout, unspecified; M19.90 Unspecified osteoarthritis, unspecified site; I50.9 Heart failure, unspecified; Z79.82 Long term (current) use of aspirin; Z82.49 Family history of ischemic heart disease and other diseases of the circulatory system; Z83.3 Family history of diabetes mellitus; Z86.718 Personal history of other venous thrombosis and embolism; Z86.73 Personal history of transient ischemic attack (TIA), and cerebral infarction without residual deficits; Z87.891 Personal history of nicotine dependence; Z95.5 Presence of coronary angioplasty implant and graft; Z60.2 Problems related to living alone; Z88.5 Allergy status to narcotic agent; Z20.822 Contact with and (suspected) exposure to COVID-19
CPT/HCPCS: 36415; 70450; 70496; 70498; 70551; 71045; 80048; 80053; 80061; 81001; 82140; 82607; 82962; 83735; 84484; 85025; 85610; 85730; 87086; 87426; 93005; 93306; 95816; 99285; C1751; J0153; J0360; J0690; J1630; J1644; J1650; J2060; J2250; J2270; J2720; J2795; J3486; J3490; J7030; J7040; J7042; J7120; Q9967; U0003; 92523-GN; 92526-GN; 92610-GN; 97110-GP; 97112-GP; 97116-GP; 97530-GO; 97530-GP; 97535-GO; G0378

== ENCOUNTER 2020-08-20 21:55 | Observation (INO) | payer MEDICARE ==
[~2020-08-20] VITALS: Ht 182.9 cm; Wt 100.0 kg
[~2020-08-20 21:55] MED LIST: ALLO300T PO; ASPI-886 PO; CALC-31 PO; CLOP75TA PO; FURO40TA4 PO; LOSA50TA15 PO; POTA20TA4 PO; PROP10TA PO; SIMV40TA18 PO
--- NOTE | 2020-08-20 23:05 | RAD ---
Left humerus x-rays 2 views HISTORY: Left arm pain and swelling. FINDINGS: No fracture. No dislocation. There is soft tissue edema and swelling of the left upper arm shoulder. 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 IMPRESSION: No acute osseous injury. Upper arm soft tissue edema and swelling, and underlying hematom a or mass lesion is not excluded. Electronically signed by: Jaleel Junior MD (08/20/2020 11:03 PM) [facility]
[2020-08-20 23:34] LABS: BASO # 0.1 x10^3/uL (0.0-0.2); BASO % 1 % (0-3); EOS # 0.3 x10^3/uL (0.0-0.7); EOS % 4 % (0-3); HEMATOCRIT 45.4 % (39.0-53.0); HEMOGLOBIN 15.3 g/dL (13.0-17.5); LYMPH # 1.5 x10^3/uL (1.0-4.8); LYMPH % 19 % (24-48); MEAN CORPUSCULAR HEMOGLOBIN 34 pg (25-35); MEAN CORPUSCULAR HGB CONC 34 g/dL (31-37); MEAN CORPUSCULAR VOLUME 101 fL (79-100); MONO % 12 % (0-9); NEUT # 5.2 x10^3/uL (1.8-7.7); NEUT % 64 % (31-73); PLATELET COUNT 185 x10^3/uL (140-400); RED BLOOD COUNT 4.49 x10^6/uL (4.30-5.70); RED CELL DISTRIBUTION WIDTH 14.8 % (11.5-14.5)
[2020-08-20 23:44] LABS: CALCIUM 8.7 mg/dL (8.5-10.1); CREATININE 1.1 mg/dL (0.7-1.3); GFR 64.1; POTASSIUM 3.6 mmol/L (3.5-5.1)
[2020-08-20 23:45] LABS: PROTHROMBIN TIME PATIENT 15.3 SEC (11.7-14.0)
[2020-08-20 23:49] LABS: ALBUMIN 3.2 g/dL (3.4-5.0); ALBUMIN/GLOBULIN RATIO 0.8 (1.0-1.7); TOTAL BILIRUBIN 0.8 mg/dL (0.2-1.0); TOTAL PROTEIN 7.4 g/dL (6.4-8.2)
--- NOTE | 2020-08-21 00:06 | ED.ADGEN ---
Past Medical History Past Medical History: Arthritis, CAD, CHF, High Cholesterol, Heart Disease, Hypertension, Migraines, TIA, Other Additional Past Medical Histor: NEUROPATHY Past Surgical History: Other Additional Past Surgical Histo: CARDIAC STENTS, L CAROTID STENT Smoking Status: Former Smoker Alcohol Use: None Drug Use: None General Adult EDM: Chief Complaint: MECHANICAL FALL HPI: HPI: Patient is an 80-year-old male with a past medical history of TIAs who presents to the emergency room concerned that he had a TIA earlier today. Patient states that earlier today he had an episode where he blacked out and woke up on the floor. He did develop some arm pain after this. EMS was called at that time he did not want to come to the hospital. He states that later in the day he realized he was having a difficult time speaking. He states that he was able to think without difficulty but was not able to communicate well. This is been a symptom of his TIAs in the past. He states that this lasted several minutes before resolving. He had a thrombectomy in his carotid artery 2 weeks ago. He did miss a few doses of his blood thinner due to issues with his prescription. He denies any kind of chest pain or shortness of breath. He denies any residual speech difficulty, dizziness, weakness, numbness, facial changes. The pain in his arm is achy in nature. He has noticed some swelling around his arm. He has been able to use it and move his arm since his fall. Review of Systems: Review of Systems: Complete ROS is negative unless otherwise documented in HPI Current Medications: Current Medications Medications (Trade) Dose Ordered Sig/Teo Start Time Stop Time Status Last Admin Dose Admin Labetalol HCl (Normodyne Iv Push) 10 mg 1X ONCE 08/21/20 00:30 08/21/20 00:31 DC 08/21/20 01:33 10 MG Allergies: Allergies: Allergies Coded Allergies Type Severity Reaction Last Updated Verified codeine Allergy Severe Anaphylaxis 07/23/20 Yes Physical Exam: PE: General: Awake, alert, NAD. Well Nourished, well hydrated. Cooperative HEENT: Atraumatic, EOMI, PERRL, airway patent, moist oral mucosa Neck: Supple, trachea midline Respiratory: CTA bilaterally, normal effort, no wheezing/crackles CV: RRR, no murmur, cap refill <2 GI: Soft, nondistended, nontender, no masses MSK: Left arm: Left upper arm with significant hematoma and bruising, normal range of motion, 2+ radial pulse, intact distal sensation Skin: Warm, dry, intact Neuro: A&O x3, speech NL, 5/5 strength in BUE/BLE distally and proximally, CN 2- 12 intact, cerebellar testing normal Psych: Normal affect, normal mood, not suicidal or homicidal Current Patient Data: Labs: Laboratory Tests Test 08/20/20 23:20 White Blood Count 8.0 x10^3/uL (4.0-11.0) Red Blood Count 4.49 x10^6/uL (4.30-5.70) Hemoglobin 15.3 g/dL (13.0-17.5) Hematocrit 45.4 % (39.0-53.0) Mean Corpuscular Volume 101 fL (79-100) H Mean Corpuscular Hemoglobin 34 pg (25-35) Mean Corpuscular Hemoglobin Concent 34 g/dL (31-37) Red Cell Distribution Width 14.8 % (11.5-14.5) H Platelet Count 185 x10^3/uL (140-400) Neutrophils (%) (Auto) 64 % (31-73) Lymphocytes (%) (Auto) 19 % (24-48) L Monocytes (%) (Auto) 12 % (0-9) H Eosinophils (%) (Auto) 4 % (0-3) H Basophils (%) (Auto) 1 % (0-3) Neutrophils # (Auto) 5.2 x10^3/uL (1.8-7.7) Lymphocytes # (Auto) 1.5 x10^3/uL (1.0-4.8) Monocytes # (Auto) 1.0 x10^3/uL (0.0-1.1) Eosinophils # (Auto) 0.3 x10^3/uL (0.0-0.7) Basophils # (Auto) 0.1 x10^3/uL (0.0-0.2) Prothrombin Time 15.3 SEC (11.7-14.0) H Prothrombin Time INR 1.3 (0.8-1.1) H Activated Partial Thromboplast Time 31 SEC (24-38) Sodium Level 139 mmol/L (136-145) Potassium Level 3.6 mmol/L (3.5-5.1) Chloride Level 103 mmol/L (98-107) Carbon Dioxide Level 30 mmol/L (21-32) Anion Gap 6 (6-14) Blood Urea Nitrogen 16 mg/dL (8-26) Creatinine 1.1 mg/dL (0.7-1.3) Estimated GFR (Cockcroft-Gault) 64.1 BUN/Creatinine Ratio 15 (6-20) Glucose Level 103 mg/dL (70-99) H Calcium Level 8.7 mg/dL (8.5-10.1) Magnesium Level 2.0 mg/dL (1.8-2.4) Total Bilirubin 0.8 mg/dL (0.2-1.0) Aspartate Amino Transferase (AST) 18 U/L (15-37) Alanine Aminotransferase (ALT) 16 U/L (16-63) Alkaline Phosphatase 75 U/L (46-116) Troponin I Quantitative < 0.017 ng/mL (0.000-0.055) Total Protein 7.4 g/dL (6.4-8.2) Albumin 3.2 g/dL (3.4-5.0) L Albumin/Globulin Ratio 0.8 (1.0-1.7) L Laboratory Tests 08/20/20 23:20 Laboratory Tests 08/20/20 23:20 Vital Signs: Vital Signs Date Time Temp Pulse Resp B/P (MAP) Pulse Ox O2 Delivery O2 Flow Rate FiO2 08/21/20 00:49 92 207/81 (123) 90 Room Air 08/20/20 22:15 98.1 12 98.1 EKG: EKG: [] Heart Score: C/O Chest Pain: N/A Risk Factors: Risk Factors: DM, Current or recent (<one month) smoker, HTN, HLP, family history of CAD, obesity. Risk Scores: Score 0 - 3: 2.5% MACE over next 6 weeks - Discharge Home Score 4 - 6: 20.3% MACE over next 6 weeks - Admit for Clinical Observation Score 7 - 10: 72.7% MACE over next 6 weeks - Early Invasive Strategies Radiology/Procedures: Radiology/Procedures: [] Course & Med Decision Making: Course & Med Decision Making Pertinent Labs and Imaging studies reviewed. (See chart for details) Patient is an 80-year-old male who presents to the emergency room complaining of difficulty with speech that lasted a few minutes prior to arrival. Patient also had an episode where he blacked out. He denies any current chest pain or shortness of breath. Neuro exam is normal. Patient has significant hematoma to left upper arm. X-ray of the arm does not show any acute fractures. TIA work- up was ordered and was normal. Patient will be admitted for TIA evaluation. Neurology consult was placed. Dragon Disclaimer: Dragjuliana Disclaimer: This electronic medical record was generated, in whole or in part, using a voice recognition dictation system. Departure Departure Impression: Primary Impression: TIA (transient ischemic attack) Additional Impression: Fall Disposition: ADMITTED INPT THIS HOSP Condition: STABLE Referrals: Sean SANDERS MD (PCP) Problem Qualifiers MARIAA TEIXEIRA MD Aug 21, 2020 00:06
[2020-08-21] MEDS ORDERED: LABETALOL 20 MG/4 ML DISP.SYRIN. IVP ONE (00:30)
--- NOTE | 2020-08-21 00:38 | RAD ---
CT head without contrast PQRS statement: CT scans at this facility use dose reduction including either automated exposure cont rol, iterative reconstructions, and /or weight based radiation dosing via mA and kV modification when appropriate to reduce radiation dose to as low as reasonably achievable. HISTORY: Fell and hit head. FINDINGS: Mild generalized brain atrophy. No intracranial hemorrhage, mass, hydrocephalus, extra-axia l fluid collections or infarction. No acute ischemic changes. Orbits, mastoids and bones are unremark able. IMPRESSION: No acute abnormality. Electronically signed by: Jaleel Junior MD (08/21/2020 12:36 AM) [facility]
[2020-08-21 02:53] LABS: BILIRUBIN,URINE NEGATIVE (NEG); CLARITY,URINE CLEAR; COLOR,URINE YELLOW; NITRITE,URINE NEGATIVE (NEG); PROTEIN,URINE NEGATIVE (NEG-TRACE)
[2020-08-21 03:00] VITALS: BP 154/76
[2020-08-21 03:27] LABS: BACTERIA,URINE 0 /HPF (0-FEW); HYALINE CASTS, URINE FEW /HPF; RBC,URINE OCC /HPF (0-2); WBC,URINE OCC /HPF (0-4)
[2020-08-21 07:00] VITALS: BP 151/70
--- NOTE | 2020-08-21 08:02 | EKG ---
[facility] [address] [place] [address] Test Date: 2020-08-20 Test Time: 23:00:01 Pat Name: BLUE HODGES Department: Room: Gender: M Senior Financial Reporting Analyst: : 1940 Requested By: MARIAA TEIXEIRA Order Number: [id number] Reading MD: Measurements Intervals [place] Rate: 88 P: -90 GA: 144 QRS: 60 QRSD: 92 T: 50 QT: 364 QTc: 444 Interpretive Statements SINUS RHYTHM NORMAL ECG RI6.02 No previous ECG available for comparison
[2020-08-21] MEDS ORDERED: FLU VACC QS 2020-21(6MOS+)/PF 0.5 ML SYRINGE. VAX IM ONE (09:00)
[2020-08-21 11:00] VITALS: BP 188/74
--- NOTE | 2020-08-21 12:13 | SSS ---
ADMIT DATE: 08/21/2020 CHIEF COMPLAINT: Fall. HISTORY OF PRESENT ILLNESS: The patient is a pleasant 80-year-old male who we had in the hospital a couple of weeks ago with TIA symptoms and he actually underwent a left carotid endarterectomy at that time. He went to rehab. He has been doing relatively well, but last night, he had an episode where he blacked out and fell on the floor. EMS was called. He was brought to the hospital. We have admitted him overnight for observation. This morning, he is doing well and wants to go home. I saw and examined him. I talked to the rn case management. We plan to discharge. PAST MEDICAL HISTORY: Arthritis, TIA, recent left carotid endarterectomy, CAD, CHF, hyperlipidemia, coronary artery disease, migraines, neuropathy, cardiac stents, left carotid stent. ALLERGIES: CODEINE. FAMILY HISTORY: Diabetes. SOCIAL HISTORY: Does not drink, smoke or take drugs. He is retired. MEDICATIONS: Reviewed, please refer to the MRAD. REVIEW OF SYSTEMS: GENERAL: No history of weight change, weakness or fevers. SKIN: No bruising, hair changes or rashes. EYES: No blurred, double or loss of vision. NOSE AND THROAT: No history of nosebleeds, hoarseness or sore throat. HEART: No history of palpitations, chest pain or shortness of breath on exertion. LUNGS: Denies cough, hemoptysis, wheezing or shortness of breath. GASTROINTESTINAL: Denies changes in appetite, nausea, vomiting, diarrhea or constipation. GENITOURINARY: No history of frequency, urgency, hesitancy or nocturia. NEUROLOGIC: Denies history of numbness, tingling, tremor or weakness. PSYCHIATRIC: No history of panic, anxiety or depression. ENDOCRINE: No history of heat or cold intolerance, polyuria or polydipsia. EXTREMITIES: Denies muscle weakness, joint pain, pain on walking or stiffness. PHYSICAL EXAMINATION: VITALS: Within normal limits and are stable. GENERAL: No apparent distress. Alert and oriented. HEENT: Normal cephalic atraumatic, external auditory canals are patent. Eyes: Extraocular muscles are intact, pupils are equally round and reactive to light and accommodation. MUSCULOSKELETAL: Well developed, well nourished, good range of motion. ENDOCRINE: No thyromegaly was palpated. LYMPHATICS: No cervical chain or axillary nodes were noted. HEMATOPOIETIC: No bruising. NECK: Supple, no JVD, no thyromegaly was noted. LUNGS: Clear to auscultation in all lung freed without rhonchi or wheezing. HEART: RRR, S1, S2 present. Peripheral pulses intact, no obvious murmurs were noted. ABDOMEN: Soft, nontender. Positive bowel sounds no organomegaly, normal bowel sounds. EXTREMITIES: Without any cyanosis, clubbing, or edema. Pedal pulses intact, Homans sign is negative. NEUROLOGIC: Normal speech, normal tone. A and O x 3, moves all extremities, no obvious focal deficits. PSYCHIATRIC: Normal affect, normal mood. Stable. SKIN: No ulcerations or rashes, good skin turgor, no jaundice. VASCULAR: Good capillary refill, neurovascular bundle appears to be intact. ASSESSMENT AND PLAN: Resolving syncope. The patient was admitted. We have observed him overnight. He is doing well this morning. We will go ahead and discharge with close outpatient followup. DISPOSITION: Home. ACTIVITY: As tolerated. DIET: Low sodium. MEDICATIONS: Please see the MRAD. He is on Plavix 75 a day, simvastatin 40 a day, propranolol 10 daily, losartan 50 a day, aspirin 81 a day, calcium carbonate 1 a day, potassium 20 mEq p.o. every day, Lasix 40 a day, and allopurinol 300 every day. TOTAL TIME: 32 minutes. RUTH HAILE DO DR: KEITH/robel JOB#: [id number] / [id number]
--- NOTE | 2020-08-21 13:56 | PDOC2 ---
NEUROLOGY CONSULT Date of Service DOS: DATE: 08/21/20 TIME: 13:46 Reason for Consult Reason for Consult: Possible transient ischemic attack Referring Physician Referring Physician: Dr. Ramos PCP: Dr. Claros Source Source: Caregiver (Sister), Chart review, Patient History of Present Illness History of Present Illness The patient is an 80-year-old right-handed male who was just here little over 3 weeks ago. He had trouble thinking of the words he wanted to say and could not get his words out. In his youth he had migraines associated with scotomata, blindness, and may have had some scotomata the morning of admission. He did not have a headache. The patient ended up having a left carotid endarterectomy. After the endarterectomy had another episode of aphasia. He had 2 of each: CT angiogram, head CT, and brain MRI, all of negative. He also had a negative EEG. I felt that this was possibly a stress reaction, also considering partial complex seizures with negative EEG, migraine phenomenon, and the onset of frontotemporal dementia. It turns out the patient for the past several years barrett s had episodes of confusion, not being able to get his words out. One time he lost track of up to 4 hours of time, her sister tells me. However, he has never had any convulsive activity. Yesterday about 6 PM he arose suddenly from his chair and that is the last thing he remembers. The next thing he was on the floor. His sister says that he hit his arm and probably his head on a marble coffee table. No one knows how long he was out. He had a slight headache last night but feels fine today and wants to go home. Past Medical History Cardiovascular: HTN, Hyperlipidemia, Other (Peripheral vascular disease) CENTRAL NERVOUS SYSTEM: Migraine Psych: Anxiety Musculoskeletal: Osteoarthritis Rheumatologic: Gout Past Surgical History Past Surgical History: Other (IVC filter, carotid endarterectomy (right and left), coronary stent, left leg artery surgery?) Family History Family History: No pertinent hx Social History Social History Retired, lives alone, no alcohol or tobacco Current Medications Current Medications Current Medications Labetalol HCl (Normodyne Iv Push) 10 mg 1X ONCE IVP Last administered on 08/21/20at 01:33; Start 08/21/20 at 00:30; Stop 08/21/20 at 00:31; Status DC Influenza Virus Vaccine Quadrival (Fluzone Quad [id number] Syringe) 0.5 ml ONCE ONCE VAX IM ; Start 08/21/20 at 09:00; Stop 08/21/20 at 09:01; Status DC Active Scripts Active Clopidogrel (Clopidogrel Bisulfate) 75 Mg Tablet 1 Tab PO DAILY 7 Days Emergency fill while awaiting mail order Clopidogrel (Clopidogrel Bisulfate) 75 Mg Tablet 75 Mg PO [id number] 90 Days Reported Calcium 500 + D Tablet (Calcium Carbonate/Vitamin D3) 1 Each Tablet 1 Tab PO DAILY 30 Days Aspirin Ec (Aspirin) 81 Mg Tablet.dr 1 Tab PO DAILY Losartan Potassium 50 Mg Tablet 1 Tab PO DAILY Furosemide 40 Mg Tablet 1 Tab PO DAILY Allopurinol 300 Mg Tablet 1 Tab PO DAILY Klor-Con M20 (Potassium Chloride) 20 Meq Tab.er.prt 1 Tab PO DAILY Simvastatin 40 Mg Tablet 1 Tab PO QHS Propranolol Hcl 10 Mg Tablet 10 Mg PO DAILY Allergies Allergies: Coded Allergies: codeine (Verified Allergy, Severe, Anaphylaxis, 07/23/20) ROS Review of System Negative for fever, chills, weight loss, shortness of breath, chest pain, indigestion, hematochezia, melena, and dysuria. Full 14-point review of systems is negative. Physical Exam Physical Examination General: Well-developed, well-nourished white male in no acute distress HEENT: Normocephalic andatraumatic. Temporal arteriespulsatile and nontender. Neck: Supple without bruit, no meningismus Musculoskeletal: Stability:see neurologic. Gait exam:see neurologic. Tone:see neurologic.Strength:see neurologic. Contusion left upper arm Neurological: Mental Status:intact, orientation, memory, attention span/concentration, language, fund of knowledge normal. Cranial Nerves:Pupils equal and reactive to light, extraocular movements areintact, visual freed are full to confrontation. Facial sensation is normal. There is no facial asymmetry. Vestibulo-ocular reflex is intact. Palate elevates and tongue protrudes in midline. All other cranial related problems are negative except as mentioned before.Reflexes:2+ and symmetric with flexor plantar responses. Motor:5/5 strength with normal tone and bulk. Coordination:Finger-nose finger and sheri l-to-felix testing are normal. Rapid alternating movements and fine finger movements are intact. Gait:Normal, including tandem. Sensory:Normal pinprick, vibration, light touch, proprioception. Vitals VITALS Vital Signs Date Time Temp Pulse Resp B/P (MAP) Pulse Ox O2 Delivery O2 Flow Rate FiO2 08/21/20 11:00 96.9 85 18 188/74 (112) 93 Room Air 96.9 Labs Labs Laboratory Tests Test 08/20/20 23:20 08/21/20 02:45 White Blood Count 8.0 x10^3/uL (4.0-11.0) Red Blood Count 4.49 x10^6/uL (4.30-5.70) Hemoglobin 15.3 g/dL (13.0-17.5) Hematocrit 45.4 % (39.0-53.0) Mean Corpuscular Volume 101 fL (79-100) Mean Corpuscular Hemoglobin 34 pg (25-35) Mean Corpuscular Hemoglobin Concent 34 g/dL (31-37) Red Cell Distribution Width 14.8 % (11.5-14.5) Platelet Count 185 x10^3/uL (140-400) Neutrophils (%) (Auto) 64 % (31-73) Lymphocytes (%) (Auto) 19 % (24-48) Monocytes (%) (Auto) 12 % (0-9) Eosinophils (%) (Auto) 4 % (0-3) Basophils (%) (Auto) 1 % (0-3) Neutrophils # (Auto) 5.2 x10^3/uL (1.8-7.7) Lymphocytes # (Auto) 1.5 x10^3/uL (1.0-4.8) Monocytes # (Auto) 1.0 x10^3/uL (0.0-1.1) Eosinophils # (Auto) 0.3 x10^3/uL (0.0-0.7) Basophils # (Auto) 0.1 x10^3/uL (0.0-0.2) Prothrombin Time 15.3 SEC (11.7-14.0) Prothromb Time International Ratio 1.3 (0.8-1.1) Activated Partial Thromboplast Time 31 SEC (24-38) Sodium Level 139 mmol/L (136-145) Potassium Level 3.6 mmol/L (3.5-5.1) Chloride Level 103 mmol/L (98-107) Carbon Dioxide Level 30 mmol/L (21-32) Anion Gap 6 (6-14) Blood Urea Nitrogen 16 mg/dL (8-26) Creatinine 1.1 mg/dL (0.7-1.3) Estimated GFR (Cockcroft-Gault) 64.1 BUN/Creatinine Ratio 15 (6-20) Glucose Level 103 mg/dL (70-99) Calcium Level 8.7 mg/dL (8.5-10.1) Magnesium Level 2.0 mg/dL (1.8-2.4) Total Bilirubin 0.8 mg/dL (0.2-1.0) Aspartate Amino Transf (AST/SGOT) 18 U/L (15-37) Alanine Aminotransferase (ALT/SGPT) 16 U/L (16-63) Alkaline Phosphatase 75 U/L (46-116) Troponin I Quantitative < 0.017 ng/mL (0.000-0.055) Total Protein 7.4 g/dL (6.4-8.2) Albumin 3.2 g/dL (3.4-5.0) Albumin/Globulin Ratio 0.8 (1.0-1.7) Urine Collection Type Unknown Urine Color Yellow Urine Clarity Clear Urine pH 7.0 (<5.0-8.0) Urine Specific Tuttle 1.020 (1.000-1.030) Urine Protein Negative mg/dL (NEG-TRACE) Urine Glucose (UA) Negative mg/dL (NEG) Urine Ketones (Stick) 15 mg/dL (NEG) Urine Blood Negative (NEG) Urine Nitrite Negative (NEG) Urine Bilirubin Negative (NEG) Urine Urobilinogen Dipstick 2.0 mg/dL (0.2 mg/dL) Urine Leukocyte Esterase Negative (NEG) Urine RBC Occ /HPF (0-2) Urine WBC Occ /HPF (0-4) Urine Squamous Epithelial Cells Occ /LPF Urine Bacteria 0 /HPF (0-FEW) Urine Hyaline Casts Few /HPF Urine Mucus Mod /LPF Laboratory Tests Test 08/20/20 23:20 08/21/20 02:45 White Blood Count 8.0 x10^3/uL (4.0-11.0) Red Blood Count 4.49 x10^6/uL (4.30-5.70) Hemoglobin 15.3 g/dL (13.0-17.5) Hematocrit 45.4 % (39.0-53.0) Mean Corpuscular Volume 101 fL (79-100) Mean Corpuscular Hemoglobin 34 pg (25-35) Mean Corpuscular Hemoglobin Concent 34 g/dL (31-37) Red Cell Distribution Width 14.8 % (11.5-14.5) Platelet Count 185 x10^3/uL (140-400) Neutrophils (%) (Auto) 64 % (31-73) Lymphocytes (%) (Auto) 19 % (24-48) Monocytes (%) (Auto) 12 % (0-9) Eosinophils (%) (Auto) 4 % (0-3) Basophils (%) (Auto) 1 % (0-3) Neutrophils # (Auto) 5.2 x10^3/uL (1.8-7.7) Lymphocytes # (Auto) 1.5 x10^3/uL (1.0-4.8) Monocytes # (Auto) 1.0 x10^3/uL (0.0-1.1) Eosinophils # (Auto) 0.3 x10^3/uL (0.0-0.7) Basophils # (Auto) 0.1 x10^3/uL (0.0-0.2) Prothrombin Time 15.3 SEC (11.7-14.0) Prothromb Time International Ratio 1.3 (0.8-1.1) Activated Partial Thromboplast Time 31 SEC (24-38) Sodium Level 139 mmol/L (136-145) Potassium Level 3.6 mmol/L (3.5-5.1) Chloride Level 103 mmol/L (98-107) Carbon Dioxide Level 30 mmol/L (21-32) Anion Gap 6 (6-14) Blood Urea Nitrogen 16 mg/dL (8-26) Creatinine 1.1 mg/dL (0.7-1.3) Estimated GFR (Cockcroft-Gault) 64.1 BUN/Creatinine Ratio 15 (6-20) Glucose Level 103 mg/dL (70-99) Calcium Level 8.7 mg/dL (8.5-10.1) Magnesium Level 2.0 mg/dL (1.8-2.4) Total Bilirubin 0.8 mg/dL (0.2-1.0) Aspartate Amino Transf (AST/SGOT) 18 U/L (15-37) Alanine Aminotransferase (ALT/SGPT) 16 U/L (16-63) Alkaline Phosphatase 75 U/L (46-116) Troponin I Quantitative < 0.017 ng/mL (0.000-0.055) Total Protein 7.4 g/dL (6.4-8.2) Albumin 3.2 g/dL (3.4-5.0) Albumin/Globulin Ratio 0.8 (1.0-1.7) Urine Collection Type Unknown Urine Color Yellow Urine Clarity Clear Urine pH 7.0 (<5.0-8.0) Urine Specific Tuttle 1.020 (1.000-1.030) Urine Protein Negative mg/dL (NEG-TRACE) Urine Glucose (UA) Negative mg/dL (NEG) Urine Ketones (Stick) 15 mg/dL (NEG) Urine Blood Negative (NEG) Urine Nitrite Negative (NEG) Urine Bilirubin Negative (NEG) Urine Urobilinogen Dipstick 2.0 mg/dL (0.2 mg/dL) Urine Leukocyte Esterase Negative (NEG) Urine RBC Occ /HPF (0-2) Urine WBC Occ /HPF (0-4) Urine Squamous Epithelial Cells Occ /LPF Urine Bacteria 0 /HPF (0-FEW) Urine Hyaline Casts Few /HPF Urine Mucus Mod /LPF Images Images CT head without contrast PQRS statement: CT scans at this facility use dose reduction including either automated exposure control, iterative reconstructions, and /or weight based radiation dosing via mA and kV modification when appropriate to reduce radiation dose to as low as reasonably achievable. HISTORY: Fell and hit head. FINDINGS: Mild generalized brain atrophy. No intracranial hemorrhage, mass, hydrocephalus, extra-axial fluid collections or infarction. No acute ischemic changes. Orbits, mastoids and bones are unremarkable. IMPRESSION: No acute abnormality. Assessment/Plan Assessment/Plan Impression: Longstanding episodes of confusion and aphasia with differential diagnosis remaining migraine phenomenon, anxiety reaction, partial-complex seizures, onset of frontotemporal dementia, hypertensive encephalopathy. Transient ischemic attack very unlikely especially since he has had an endarterectomy and follow-up CT angiogram was negative Fall with concussion last night, he got up too quickly from his chair. There is no sign that he had a seizure. Left upper arm contusion History of bilateral carotid endarterectomies Recommendations: Aspirin daily 325 mg daily I will arrange for an outpatient 24-hour EEG study Follow-up with YOCASTA Caban as scheduled on 09/16 Okay for discharge, but I told the patient to have someone stay with him for the next several days Discussed with patient's sister Thank you for letting me help with the patient's care. MUNIR CHAN MD Aug 21, 2020 13:56
--- NOTE | 2020-08-21 15:16 | NUR ---
PT DISCHARGED HOME WITH FAMILY. MEDS AND FOLLOW UP REVIEWED. IV REMOVED, CATH INTACT. PT STABLE UPON DC. BELONGINGS IN BLUE LINEN BAG SENT WITH PATIENT.
== END 2020-08-21 15:21 | disposition home or self-care (01) ==
LOC: ER 21:55 → 6 SOUTH 08-21 00:53 → INTOOBSV 08-21 00:53
PROVIDERS: ADMIT Family Medicine; ATTEND Family Medicine
DX: G45.9 Transient cerebral ischemic attack, unspecified (principal); S40.022A Contusion of left upper arm, initial encounter; R55 Syncope and collapse; I11.0 Hypertensive heart disease with heart failure; I50.9 Heart failure, unspecified; I25.10 Atherosclerotic heart disease of native coronary artery without angina pectoris; I73.9 Peripheral vascular disease, unspecified; G43.909 Migraine, unspecified, not intractable, without status migrainosus; R47.01 Aphasia; E78.00 Pure hypercholesterolemia, unspecified; E78.5 Hyperlipidemia, unspecified; M19.90 Unspecified osteoarthritis, unspecified site; M10.9 Gout, unspecified; Z86.73 Personal history of transient ischemic attack (TIA), and cerebral infarction without residual deficits; Z87.891 Personal history of nicotine dependence; Z95.5 Presence of coronary angioplasty implant and graft; Z79.82 Long term (current) use of aspirin; Z95.1 Presence of aortocoronary bypass graft; W18.30XA Fall on same level, unspecified, initial encounter; Y93.89 Activity, other specified; Y92.89 Other specified places as the place of occurrence of the external cause; Y99.8 Other external cause status
CPT/HCPCS: 36415; 70450; 73060; 80053; 81001; 83735; 84484; 85025; 85610; 85730; 93005; 96374; 99285; G0378; J3490; G0379

== ENCOUNTER → 2020-08-25 | Outpatient (CLI) | payer MEDICARE ==
[2020-08-21 11:00] VITALS: BP 188/74
--- NOTE | 2020-08-26 09:18 | EEG ---
DATE OF SERVICE: 08/25/2020 A 24-HOUR VIDEO EEG EEG NUMBER: . OBJECTIVE: The patient is an 80-year-old male with episodes of altered consciousness and aphasia, rule out partial-complex seizures. DESCRIPTION: This is a digital study. Electrodes are placed according to the international 10-20 system. Bipolar and referential montages are available. Activation procedures typically include hyperventilation and intermittent photic stimulation. INTERPRETATION: The waking background consists of 9-10 Hz, 50-100 microvolt activity, symmetrically distributed over parietooccipital regions and reactive to eye opening. Hyperventilation and intermittent photic stimulation are noncontributory. Stage 2 sleep is achieved with normal electroencephalogram patterns. No seizure events are recorded. All computer-identified abnormalities are reviewed and none are actually showing any abnormality. IMPRESSION: This 24-hour video EEG study with the patient awake and asleep is within normal limits. There is no focal, paroxysmal, or epileptiform activity. Thank you for letting us help with the patient's care. MUNIR CHAN MD DR: ROB/robel JOB#: [id number] / [id number]
== END ==
LOC: SLPLAB 06:11
PROVIDERS: ATTEND Psychiatry & Neurology Neurology with Special Qualifications in Child Neurology
DX: R41.82 Altered mental status, unspecified (principal); Z86.69 Personal history of other diseases of the nervous system and sense organs; Z86.73 Personal history of transient ischemic attack (TIA), and cerebral infarction without residual deficits
CPT/HCPCS: 95716